=== PATIENT | male | born 1965 | race Caucasian/White ===

== ENCOUNTER 2023-03-29 19:11 | Inpatient (IN) | payer BC, SELFPAY ==
[2023-03-29] VITALS (13 sets, daily range): BP systolic 121–149; BP diastolic 50–85; PULSE 97–113; RESP 20–34; TEMP 36.7–37.9; O2SAT 83–96; BMI 37.0
--- NOTE | ~2023-03-29 | XR_ITS ---
EXAMINATION: XR chest 2V DATE: 03/29/2023 19:54 INDICATION: Shortness of breath TECHNIQUE: Frontal and lateral views of the chest are obtained COMPARISON: None available FINDINGS: There are patchy airspace opacities throughout the right lung and in the left lung base. No pleural effusion or pneumothorax. The cardiomediastinal silhouette is normal. There is moderate thor acic spondylosis. IMPRESSION: 1. Multifocal airspace opacities of the lungs, right greater than left, likely multifocal pneumonia. Reviewed, dictated and finalized at location F.
--- NOTE | 2023-03-29 19:27 | ECG_ITS ---
Measurements Intervals [place] Rate: 102 P: 44 ME: 190 QRS: 88 QRSD: 96 T: -16 QT: 333 QTc: 434 Interpretive Statements SINUS TACHYCARDIA INFERIOR MYOCARDIAL INFARCTION , OF INDETERMINATE AGE WITH POSTERIOR EXTENSION ABNORMAL ECG NO PREVIOUS ECG AVAILABLE FOR COMPARISON Electronically Signed On 03-30-2023 6:36:24 CDT by Dani Mayer D.O.
[2023-03-29 19:41] LABS: Basophils Percent Auto 0.5 % (0.2-1.2); Eosinophils Percent Auto 0.5 % (0-4.4); Hematocrit 44.2 % (42.0-52.0); Hemoglobin 14.9 g/dL (14.0-18.0); Immature Granulocyte Absolute 0.03 K/mm3 (0.00-0.031); Immature Granulocyte Percent A 0.4 % (0-0.5); Lymphocytes Absolute Auto 1.09 K/mm3 (0.9-3.2); Lymphocytes Percent Auto 12.8 % (18.3-44.2); Mean Corpuscular HGB Conc 33.7 g/dl (32-36); Mean Corpuscular Hemoglobin 29.9 pg (26-34); Mean Corpuscular Volume 88.8 fl (80-100); Mean Platelet Volume 10.9 fl (7.4-10.4); Monocytes Absolute Auto 0.7 K/mm3 (0.1-0.6); Neutrophils Absolute Auto 6.6 K/mm3 (1.3-6.7); Neutrophils Percent Auto 77.8 % (45.5-73.1); Platelet Count Result 176 k/mm3 (150-375); Red Blood Count 4.98 M/mm3 (4.6-6.20); Red Cell Distribution Width 13.1 % (11.5-14.5); White Blood Count 8.5 K/mm3 (4.5-10.0)
[2023-03-29 19:51] LABS: Alanine Aminotransferase 32 U/L (6-50); Albumin Level 3.8 g/dL (3.5-5.1); Alkaline Phosphatase 52 U/L (38-126); Anion Gap 6 mmol/L (8-16); Aspartate Amino Transferase 30 U/L (17-59); Bilirubin,Total 0.9 mg/dL (0.2-1.3); Blood Urea Nitrogen 24 mg/dL (9-20); Calcium 8.5 mg/dL (8.4-10.2); Carbon Dioxide 29 mmol/L (22-30); Chloride 103 mmol/L (98-107); Estimated Glomerular Filt Rate 45; Glucose 148 mg/dL (65-110); Lactic Acid Reflex 0.7 mmol/L (0.7-2.0); Potassium 3.7 mmol/L (3.4-5.0); Sodium 138 mmol/L (137-145)
--- NOTE | 2023-03-29 20:13 | ED.SOB ---
HPI - SOB/Dyspnea General Chief Complaint: Shortness of Breath/Dyspnea Stated Complaint: sob Time Seen by Provider: 03/29/23 19:30 History of Present Illness HPI Narrative: Patient is a 57-year-old male with a history of hypertension, diabetes presenting with shortness of breath. Patient states that he has had URI symptoms for the last week. States that he has tested himself twice for COVID and both of been negative. States that he has been having intermittent fevers and today he has been coughing a lot. He called his PCP today who ordered a Z-Ashvin. States that he took the first dose earlier this afternoon. States that he checked his pulse ox at home and it was reading 79-85 so he came in for evaluation. Patient was placed on nasal cannula due to hypoxia and he states that he does feel improved with the oxygen on. He denies headache, numbness or weakness, chest pain, abdominal pain, nausea or vomiting, diarrhea, dysuria, leg swelling, rashes. Related Data Home Medications Medication Instructions Recorded Confirmed indomethacin 50 mg capsule 50 mg PO BID PRN Gout 02/07/22 03/30/23 lisinopril 10 mg tablet 10 mg PO QHS 03/29/23 03/29/23 Allergies Allergy/AdvReac Type Severity Reaction Status Date / Time No Known Allergies Allergy Verified 03/29/23 22:57 Review of Systems Review of Systems: All systems reviewed & are unremarkable except as noted in HPI and below PMFSH Past Medical History Medical History (Updated 03/30/23 @ 00:48 by Eunice Quinn MD) Chronic kidney disease, stage 3a Essential (primary) hypertension Gastro-esophageal reflux disease without esophagitis Gout History of diverticulosis Insomnia, unspecified Male erectile dysfunction, unspecified Obstructive sleep apnea on CPAP (~2014) Perirectal abscess Testicular hypofunction Type 2 diabetes mellitus without complications Umbilical hernia without obstruction or gangrene Surgical History Surgical History Hx of repair of rotator cuff Family History Family History Mother Breast cancer Esophageal cancer Cerebrovascular accident Diabetes mellitus Heart disease Father Depression Diabetes mellitus Sibling Diabetes mellitus Other Colon polyp Hypertension Social History Social History Smoking status: Never smoker Second hand tobacco smoke exposure: No Alcohol intake: never Substance use: never Substance use type: does not use Lack of Transportation: No Lack of Food: Never True Current Housing: I Have Housing Concerned About Future Housing: No Difficulty Paying Gas/Electric Bills: No Difficulty Paying for Meds: No Currently Unemployed: No Education: Decline to Answer Difficulty w/ Childcare or Family Care: No Living arrangements: with family Occupation/Education: occupation Gender identity (if verbalized by the patient): Male Sexual Orientation (if Verbalized by the Patient): Straight or Heterosexual Spiritual care concerns: No Agree to blood products: Yes Exam Narrative: GENERAL: In no acute distress, pleasant and cooperative HEAD: Normocephalic, atraumatic. EYES: PERRLA and EOMI. ENT: Nares clear, no rhinorrhea or epistaxis. Mucous membranes moist. NECK: Supple. CHEST: Coarse breath sounds especially in the HEART: Tachycardic, regular rhythm, no murmur heard ABDOMEN: Soft, nontender, nondistended EXTREMITIES: Normal range of motion. No edema. SKIN: Warm, dry, no rash. NEURO: No focal deficits. Alert and oriented x3. PSYCH: Normal mood and affect. Course Vital Signs Vital signs: Vital Signs Temperature 100.2 F H 03/29/23 19:21 Pulse Rate 113 H 03/29/23 19:21 Respiratory Rate 20 03/29/23 19:21 Blood Pressure 149/85 H 03/29/23 19:21 Pulse Oximetry 83 L 03/29/23 19:21 Oxygen Delivery R
[2023-03-29] MEDS: SODIUM CHLORIDE 0.9% IV 1,000 ML 999 ML IV CONT ×2 (20:21)
[2023-03-29 20:33] LABS: NT Pro B Type Natriuretic Pept 2960 pg/mL (19.9-100)
[2023-03-29 21:13] LABS: Influenza A QL RT-PCR Negative (Negative); Influenza B QL RT-PCR Negative (Negative); RSV RNA, RT-PCR Negative (Negative); SARS-CoV-2 RNA PCR Negative (Negative)
--- NOTE | 2023-03-29 21:32 | PM.IMHP ---
H&P: HPI History of Present Illness Date/Time: 03/29/23 21:32 Chief Complaint: Shortness of breath, low oxygen saturations Narrative: 57-year-old male with past medical history of obesity, type 2 diabetes mellitus, obstructive sleep apnea, chronic kidney disease stage III and essential hypertension who presented to the ER with 1 week of URI symptoms associated with shortness of breath and intermittent fever. The patient checked 2 home a COVID test that were negative. His symptoms started initially with headache in intermittent fever up to 101?. He felt generally fatigued. He was having as sensation of globus. He continued to get progressively more fatigued. In a couple of days ago he began having some chest tightness with breathing. He noticed some shortness of breath. Then today he developed cough. He called his primary care physician today who called in a prescription for azithromycin. He took 1st dose this afternoon. However after he took the medications he developed increasing shortness of breath. He checked his pulse oximeter at home and found his oxygen saturations to be ranging between 79 and 85 say decided come to the ER for evaluation. On arrival to the ER patient was satting 83% on room air. He was placed on 4 L nasal cannula with improvement in oxygen saturation to 93%. He reported that this afternoon he began having symptoms of some mild nausea. Otherwise he had been having some decent appetite. He reports a burning sensation her discomfort across his lower abdomen. He denies any dysuria or changes in urinary frequency. He reports that he has noticed some blurred vision recently but has not had his diabetic eye exam in about 2 years. He rarely checks his blood sugars. He reports that his last hemoglobin A1c was 6.2. He became concerned with some of his symptoms a day or so ago and so he checked his glucose at that time and they were elevated to 140 fasting. He has continued to take his home medications despite not feeling well. He denies any changes in the bowel habits. He denies any orthopnea but at the time of my evaluation the patient seemed very uncomfortable with even sitting up back in the bed and requested to sit at the edge of the bed. The patient's oxygen requirement increased while he was in the ER from 4 L nasal cannula to 6 L nasal cannula. He denies any recent travel or any recent ill contacts. He had a chest x-ray performed in the ER which confirmed multifocal pneumonia. He was started on empiric antibiotic therapy with Rocephin and azithromycin. Review of Systems Review of Systems: 12 systems were reviewed with pertinent positives and negatives per HPI. Except as documented in the HPI, all other systems were reviewed and are negative. [facility] Past Medical History Medical History (Updated 03/30/23 @ 00:48 by Eunice Quinn MD) Chronic kidney disease, stage 3a Essential (primary) hypertension Gastro-esophageal reflux disease without esophagitis Gout History of diverticulosis Insomnia, unspecified Male erectile dysfunction, unspecified Obstructive sleep apnea on CPAP (~2014) Perirectal abscess Testicular hypofunction Type 2 diabetes mellitus without complications Umbilical hernia without obstruction or gangrene Surgical History Surgical History (Updated 03/30/23 @ 08:53 by Iveth Reyes DO) History of repair of left rotator cuff History of repair of right rotator cuff Family History Family History Mother Breast cancer Esophageal cancer Cerebrovascular accident Diabetes mellitus Heart disease Father Depression Diabetes mellitus Sibling Diabetes mellitus Other Colon polyp Hypertension Social History Social History (Updated 03/30/23 @ 08:54 by Iveth Reyes DO) Smoking status: Never smoker Second hand tobacco smoke exposure: No Alcohol intake: current Alcohol use details: Extremely rare alcohol u
[2023-03-29] MEDS: LEVALBUTEROL NEB 1.25 MG/3 ML INHALATION (21:51)
[2023-03-30] VITALS (13 sets, daily range): BP systolic 133–138; BP diastolic 76–84; PULSE 91–103; RESP 18–24; TEMP 36.6–36.9; O2SAT 92–98
[2023-03-30] MEDS: LACTATED RINGERS 1,000 ML 125 ML IV CONT ×2 (00:15→08:20)
[2023-03-30] MEDS: lisinopriL 10 MG TABLET PO ×2 (00:19→20:22)
[2023-03-30] MEDS: WATER FOR IRRIGATION, STERILE 1,000 ML BOTTLE 1000 ML (00:20)
[2023-03-30] MEDS: LORazepam (*CRX) 1 MG TABLET PO ×2 (02:26→20:22)
[2023-03-30 05:45] LABS: Basophils Percent Auto 0.3 % (0.2-1.2); Eosinophils Percent Auto 0.1 % (0-4.4); Hematocrit 42.3 % (42.0-52.0); Hemoglobin 14.4 g/dL (14.0-18.0); Immature Granulocyte Absolute 0.04 K/mm3 (0.00-0.031); Immature Granulocyte Percent A 0.5 % (0-0.5); Lymphocytes Absolute Auto 0.87 K/mm3 (0.9-3.2); Lymphocytes Percent Auto 9.8 % (18.3-44.2); Mean Corpuscular Hemoglobin 30.2 pg (26-34); Mean Corpuscular Volume 88.7 fl (80-100); Mean Platelet Volume 10.8 fl (7.4-10.4); Monocytes Absolute Auto 0.7 K/mm3 (0.1-0.6); Monocytes Percent Auto 7.9 % (2.6-8.5); Neutrophils Absolute Auto 7.2 K/mm3 (1.3-6.7); Neutrophils Percent Auto 81.4 % (45.5-73.1); Platelet Count Result 167 k/mm3 (150-375); Red Blood Count 4.77 M/mm3 (4.6-6.20); Red Cell Distribution Width 13.2 % (11.5-14.5); White Blood Count 8.9 K/mm3 (4.5-10.0)
[2023-03-30 05:58] LABS: Anion Gap 10 mmol/L (8-16); Blood Urea Nitrogen 19 mg/dL (9-20); Calcium 7.8 mg/dL (8.4-10.2); Carbon Dioxide 20 mmol/L (22-30); Chloride 106 mmol/L (98-107); Estimated CRCL calculation 75 ml/min; Estimated Glomerular Filt Rate > 60; Glucose 153 mg/dL (65-110); Potassium 4.2 mmol/L (3.4-5.0); Sodium 136 mmol/L (137-145)
[2023-03-30 08:18] LABS: Glucose Point of Care 142 mg/dl (65-105)
[2023-03-30] MEDS: metFORMIN HCL XR 500 MG TAB.SR.24H 1000 MG PO (08:20)
[2023-03-30] MEDS: ENOXAPARIN 40 MG/0.4 ML SYRINGE SUB-Q (08:21)
--- NOTE | 2023-03-30 09:26 | PC.NURSE ---
Pt wanting to ambulate to restroom. Patient is on 6L HF at 92% currently I spoke with Eliana in resp and she stated it is ok for patient to use nasal cannula with extension tubing at 6L to that duration.
[2023-03-30] MEDS: LEVALBUTEROL NEB 1.25 MG/3 ML 0.63 MG INHALATION (11:07)
[2023-03-30] MEDS: IPRATROPIUM BR 0.02% INH SOLN 0.5 MG/2.5 ML VIAL INHALATION (11:07)
--- NOTE | 2023-03-30 11:37 | PM.IMPN ---
Progress Note: A&P Assessment and Plan (1) Sepsis with acute hypoxic respiratory failure: Qualifiers: Sepsis type: sepsis due to unspecified organism Severe sepsis shock status: without septic shock Qualified Code(s): A41.9 - Sepsis, unspecified organism; R65.20 - Severe sepsis without septic shock; J96.01 - Acute respiratory failure with hypoxia Code(s): A41.9 - Sepsis, unspecified organism; R65.20 - Severe sepsis without septic shock; J96.01 - Acute respiratory failure with hypoxia Status: Acute Assessment and Plan: empiric antibiotic therapy with Rocephin and azithromycin. Blood cultures are pending. Will check urine Legionella and pneumococcal antigen. Will check mycoplasma PCR sputum if the patient is able to produce a sputum specimen. (2) Multifocal pneumonia: Code(s): J18.9 - Pneumonia, unspecified organism Status: Acute Assessment and Plan: empiric antibiotic therapy with Rocephin and azithromycin. Blood cultures are pending. Will check urine Legionella and pneumococcal antigen. Will check mycoplasma PCR sputum if the patient is able to produce a sputum specimen. COVID negative (3) Obstructive sleep apnea on CPAP: Onset Date: ~2014 Code(s): G47.33 - Obstructive sleep apnea (adult) (pediatric); Z99.89 - Dependence on other enabling machines and devices Status: Acute Assessment and Plan: On CPAP (4) Chronic kidney disease, stage 3a: Code(s): N18.31 - Chronic kidney disease, stage 3a Status: Acute Assessment and Plan: The patient does have chronic kidney disease stage 3 but creatinine stable. Will avoid nephrotoxic medications when possible. (5) Type 2 diabetes mellitus: Qualifiers: Diabetes mellitus long term care pharmacist insulin use: without penitentiary use Diabetes mellitus complication status: without complication Qualified Code(s): E11.9 - Type 2 diabetes mellitus without complications Code(s): E11.9 - Type 2 diabetes mellitus without complications Status: Acute Assessment and Plan: Will add low-dose sliding scale insulin with Accu-Cheks a.c. HS and continue home metformin. Will change diet to consistent carbohydrate. Subjective Date/time seen: 03/30/23 11:37 Interval history: Patient still on oxygen. Appears a little anxious Review of Systems Review of Systems: 12 systems were reviewed with pertinent positives and negatives per HPI. Except as documented in the HPI, all other systems were reviewed and are negative. Exam Narrative: Weight 113.7 kg BMI 37 Const: Other: Acutely ill-appearing, obese, bdxf-po-deplylcv distress HENMT: Other: Mucous membranes are moist, no oral pharyngeal erythema, good dentition, crowded posterior oropharynx Eyes: Other: No scleral icterus, no conjunctival pallor, extraocular movements intact, pupils equal Neck: Other: No significant lymphadenopathy, large neck circumference Resp: Other: Coarse crackles anterior and posterior lung jade, mild tachypnea, mildly labored respiration Cardio: Other: Sinus tachycardia, 2+ bilateral radial pedal pulses, no JVD GI: Other: Soft reducible umbilical hernia, normoactive bowel sounds, distended, nontender Back/Spine/Pelvis: Other: Normal spinal alignment, mild thoracic kyphosis Skin: Other: Hot to touch, non jaundice, mild pallor, 2-3 second cap refill Neuro: Other: Alert oriented, speech is clear, no facial asymmetry, no localizing neurologic deficits noted during the course of conversation Extrem: Other: No clubbing, cyanosis or edema, no foot wounds Psych: Other: Appropriate mood and affect if somewhat anxious given his current acute illness, judgment and insight intact, cooperative Objective Data Vital Signs Vital Signs: Vital Signs - 24 hr 03/29/23 19:21 03/29/23 19:31 03/29/23 19:25 Temperature 100.2 F H
[2023-03-30 12:21] LABS: Glucose Point of Care 138 mg/dl (65-105)
[2023-03-30 17:17] LABS: Glucose Point of Care 140 mg/dl (65-105)
[2023-03-31] VITALS (15 sets, daily range): BP systolic 133–156; BP diastolic 77–87; PULSE 84–936; RESP 20; TEMP 36.1–36.9; O2SAT 95–99
[2023-03-31] MEDS: ENOXAPARIN 40 MG/0.4 ML SYRINGE SUB-Q (08:15)
[2023-03-31] MEDS: metFORMIN HCL XR 500 MG TAB.SR.24H 1000 MG PO (08:15)
[2023-03-31 08:29] LABS: Glucose Point of Care 156 mg/dl (65-105)
--- NOTE | 2023-03-31 10:59 | PM.IMPN ---
Progress Note: A&P Assessment and Plan (1) Sepsis with acute hypoxic respiratory failure: Qualifiers: Sepsis type: sepsis due to unspecified organism Severe sepsis shock status: without septic shock Qualified Code(s): A41.9 - Sepsis, unspecified organism; R65.20 - Severe sepsis without septic shock; J96.01 - Acute respiratory failure with hypoxia Code(s): A41.9 - Sepsis, unspecified organism; R65.20 - Severe sepsis without septic shock; J96.01 - Acute respiratory failure with hypoxia Status: Acute Assessment and Plan: Improving. Continue empiric antibiotic therapy with Rocephin and azithromycin. Blood cultures are pending. Will check urine Legionella and pneumococcal antigen. Will check mycoplasma PCR sputum if the patient is able to produce a sputum specimen. (2) Multifocal pneumonia: Code(s): J18.9 - Pneumonia, unspecified organism Status: Acute Assessment and Plan: empiric antibiotic therapy with Rocephin and azithromycin. Blood cultures are pending. Will check urine Legionella and pneumococcal antigen. Will check mycoplasma PCR sputum if the patient is able to produce a sputum specimen. COVID negative (3) Obstructive sleep apnea on CPAP: Onset Date: ~2014 Code(s): G47.33 - Obstructive sleep apnea (adult) (pediatric); Z99.89 - Dependence on other enabling machines and devices Status: Acute Assessment and Plan: On CPAP (4) Chronic kidney disease, stage 3a: Code(s): N18.31 - Chronic kidney disease, stage 3a Status: Acute Assessment and Plan: The patient does have chronic kidney disease stage 3 but creatinine stable. Will avoid nephrotoxic medications when possible. (5) Type 2 diabetes mellitus: Qualifiers: Diabetes mellitus group home insulin use: without group home use Diabetes mellitus complication status: without complication Qualified Code(s): E11.9 - Type 2 diabetes mellitus without complications Code(s): E11.9 - Type 2 diabetes mellitus without complications Status: Acute Assessment and Plan: low-dose sliding scale insulin with Accu-Cheks a.c. HS and continue home metformin. Subjective Date/time seen: 03/31/23 10:59 Interval history: Patient states his breathing is better. He is ambulating in the room Review of Systems Review of Systems: 12 systems were reviewed with pertinent positives and negatives per HPI. Except as documented in the HPI, all other systems were reviewed and are negative. Exam Narrative: Weight 113.7 kg BMI 37 Const: Other: Acutely ill-appearing, obese, efqs-eg-hnbtlfrr distress HENMT: Other: Mucous membranes are moist, no oral pharyngeal erythema, good dentition, crowded posterior oropharynx Eyes: Other: No scleral icterus, no conjunctival pallor, extraocular movements intact, pupils equal Neck: Other: No significant lymphadenopathy, large neck circumference Resp: Other: Coarse crackles anterior and posterior lung jade, mild tachypnea, mildly labored respiration Cardio: Other: Sinus tachycardia, 2+ bilateral radial pedal pulses, no JVD GI: Other: Soft reducible umbilical hernia, normoactive bowel sounds, distended, nontender Back/Spine/Pelvis: Other: Normal spinal alignment, mild thoracic kyphosis Skin: Other: Hot to touch, non jaundice, mild pallor, 2-3 second cap refill Neuro: Other: Alert oriented, speech is clear, no facial asymmetry, no localizing neurologic deficits noted during the course of conversation Extrem: Other: No clubbing, cyanosis or edema, no foot wounds Psych: Other: Appropriate mood and affect if somewhat anxious given his current acute illness, judgment and insight intact, cooperative Objective Data Vital Signs Vital Signs: Vital Signs - 24 hr 03/30/23 11:00 03/30/23 12:37 03/30/23 14:37 Temperature Pulse Rate 95 Resp
[2023-03-31 12:21] LABS: Glucose Point of Care 107 mg/dl (65-105)
[2023-03-31 17:12] LABS: Glucose Point of Care 109 mg/dl (65-105)
[2023-03-31] MEDS: lisinopriL 10 MG TABLET PO (20:19)
[2023-03-31] MEDS: LORazepam (*CRX) 1 MG TABLET PO (20:19)
[2023-03-31 21:50] LABS: Glucose Point of Care 118 mg/dl (65-105)
[2023-04-01] VITALS: PULSE 83
[2023-04-01 03:16] VITALS: PULSE 82; RESP 17; O2SAT 97
[2023-04-01 04:00] VITALS: PULSE 82
[2023-04-01 04:07] VITALS: BP 136/77; PULSE 83; RESP 18; TEMP 36.6; O2SAT 96
[2023-04-01 08:23] LABS: Glucose Point of Care 101 mg/dl (65-105)
[2023-04-01] MEDS: metFORMIN HCL XR 500 MG TAB.SR.24H 1000 MG PO (08:34)
[2023-04-01] MEDS: ENOXAPARIN 40 MG/0.4 ML SYRINGE SUB-Q (08:36)
[2023-04-01 09:57] VITALS: O2SAT 98
--- NOTE | 2023-04-01 11:13 | PM.DS ---
DS: Admitting Diagnosis Discharge Date 04/01/2023 Admitting Diagnosis Shortness of breath, low oxygen saturations DS: Discharge Diagnosis Discharge Diagnosis (1) Sepsis with acute hypoxic respiratory failure: Qualifiers: Sepsis type: sepsis due to unspecified organism Severe sepsis shock status: without septic shock Qualified Code(s): A41.9 - Sepsis, unspecified organism; R65.20 - Severe sepsis without septic shock; J96.01 - Acute respiratory failure with hypoxia Code(s): A41.9 - Sepsis, unspecified organism; R65.20 - Severe sepsis without septic shock; J96.01 - Acute respiratory failure with hypoxia Status: Acute Assessment and Plan: Much improved with IV antibiotic therapy with Rocephin and azithromycin. Blood cultures prelim are negative. Pt feels better wants to go home. (2) Multifocal pneumonia: Code(s): J18.9 - Pneumonia, unspecified organism Status: Acute Assessment and Plan: empiric antibiotic therapy with Rocephin and azithromycin. BC prelim is negative. COVID negative (3) Obstructive sleep apnea on CPAP: Onset Date: ~2014 Code(s): G47.33 - Obstructive sleep apnea (adult) (pediatric); Z99.89 - Dependence on other enabling machines and devices Status: Acute Assessment and Plan: On CPAP (4) Chronic kidney disease, stage 3a: Code(s): N18.31 - Chronic kidney disease, stage 3a Status: Acute Assessment and Plan: The patient does have chronic kidney disease stage 3 but creatinine stable. (5) Type 2 diabetes mellitus: Qualifiers: Diabetes mellitus complication status: without complication Diabetes mellitus mcc insulin use: without local intermodal truck driver use Qualified Code(s): E11.9 - Type 2 diabetes mellitus without complications Code(s): E11.9 - Type 2 diabetes mellitus without complications Status: Acute Assessment and Plan: low-dose sliding scale insulin with Accu-Cheks a.c. HS and continue home metformin. DS: Summary Hospital Course Hospital Course: 57-year-old male with past medical history of obesity, type 2 diabetes mellitus, obstructive sleep apnea, chronic kidney disease stage III and essential hypertension who presented to the ER with 1 week of URI symptoms associated with shortness of breath and intermittent fever.? The patient checked 2 home a COVID test that were negative.? His symptoms started initially with headache in intermittent fever up to 101?.? He felt generally fatigued.? He was having as sensation of globus.? He continued to get progressively more fatigued.? In a couple of days ago he began having some chest tightness with breathing.? He noticed some shortness of breath.? Then today he developed cough.? He called his primary care physician today who called in a prescription for azithromycin.? He took 1st dose this afternoon.? However after he took the medications he developed increasing shortness of breath.? He checked his pulse oximeter at home and found his oxygen saturations to be ranging between 79 and 85 say decided come to the ER for evaluation.? On arrival to the ER patient was satting 83% on room air.? He was placed on 4 L nasal cannula with improvement in oxygen saturation to 93%.? He reported that this afternoon he began having symptoms of some mild nausea.? Otherwise he had been having some decent appetite.? He reports a burning sensation her discomfort across his lower abdomen.? He denies any dysuria or changes in urinary frequency.? He reports that he has noticed some blurred vision recently but has not had his diabetic eye exam in about 2 years.? He rarely checks his blood sugars.? He reports that his last hemoglobin A1c was 6.2 Time Spent with Patient Time attestation: Total time spent providing and/or coordinating discharge services:40 minutes on day of dc Exam Const: Other: Acutely ill-appearing, obese, coyn-bf-dgisggke distress HENMT: Other: Mucous membranes
[2023-04-01 11:45] LABS: Glucose Point of Care 121 mg/dl (65-105)
[2023-04-02 06:05] LABS: Legionella pneumophila Ag Ur Not Detected (Not Detected)
[2023-04-03 04:12] LABS: Pneumococcal Antigen Urine Not Detected (Not Detected)
== END 2023-04-01 14:11 | disposition home or self-care (01) | DRG 871 ==
LOC: ANHED 20:00 → ANH3MED 21:32
PROVIDERS: Hospitalist; Admitting Provider Internal Medicine; Emergency Provider Emergency Medicine; PCP Family Medicine Adolescent Medicine; Visit Provider Family Medicine
DX: A41.9 Sepsis, unspecified organism (principal); J18.8 Other pneumonia, unspecified organism; J96.01 Acute respiratory failure with hypoxia; R65.20 Severe sepsis without septic shock; I12.9 Hypertensive chronic kidney disease with stage 1 through stage 4 chronic kidney disease, or unspecified chronic kidney disease; N18.31 Chronic kidney disease, stage 3a; E11.22 Type 2 diabetes mellitus with diabetic chronic kidney disease; K21.9 Gastro-esophageal reflux disease without esophagitis; K57.30 Diverticulosis of large intestine without perforation or abscess without bleeding; K42.9 Umbilical hernia without obstruction or gangrene; M10.9 Gout, unspecified; G47.33 Obstructive sleep apnea (adult) (pediatric); Z20.822 Contact with and (suspected) exposure to COVID-19
CPT/HCPCS: 36415; 71046; 80048; 80053; 82948; 83605; 83880; 85025; 87040; 87449; 87637; 87899; 93005; 94002; 94640; 96361; 96365; 96372; 99285; A9270; G0378; J0456; J0696; J1650; J7030; J7060; J7120

== ENCOUNTER 2023-08-13 07:17 | Outpatient (CLI) | payer BC, SELFPAY ==
--- NOTE | 2023-08-13 07:45 | ECHO_ITS ---
Patient Info Name: George Barriga Age: 57 years : 1965 Gender: Male Ht: 70 in Wt: 240 lbs BSA: 2.36 m2 HR: 69 bpm BP: 123 / 82 mmHg Technical Quality: Good Exam Date: 08/13/2023 7:49 AM Exam Location: [facility] Patient Status: Outpatient Admit Date: 08/13/2023 Staff Ordering Physician: Siddharth Corona MD Assembler Bicycle: Chelsey Beauchamp RDCS Attending Provider: Siddharth Corona MD Referring Physician: Cj CORONA; Exam Type: CA echo dop color flow w con Study Info Indications R01.1 - Cardiac murmur, unspecified Complete two-dimensional, color flow and Doppler transthoracic echocardiogram is performed with contrast to opacify the left ventricle and to improve the deliniation of the left ventricle endocardial borders. Contrast/Agitated Saline Contrast/Ag. Saline: Definity Amount: 3.00 ml Administered By: Chelsey Beauchamp RDCS New IV Access: Antecubital Space and Left Site Condition: IV removed, Site dressing applied and No extravasation Summary 1. Left ventricular chamber dimension is mildly enlarged. 2. Definity contrast administered improved wall motion interpretation. 3. Left ventricular systolic function is preserved, estimated at 50-55%. 4. There is moderately increased left ventricular wall thickness. 5. The left ventricular diastolic function is abnormal. 6. E/e' 11 is mildly elevated. 7. Left atrial chamber dimension is mildly enlarged. 8. Right atrial chamber dimension is mildly enlarged. 9. The aortic valve is bicuspid. 10. There is moderate aortic valve sclerosis. 11. There is severe aortic valve stenosis with a peak velocity of 316.79 cm/s, mean gradient of 28 mmHg, and aortic valve area of 0.76 cm2. 12. No pulmonary hypertension, estimated pulmonary arterial systolic pressure is 21 mmHg. Left Ventricle E/e' 11 is mildly elevated. Definity contrast administered improved wall motion interpretation. Left ventricular chamber dimension is mildly enlarged. Left ventricular systolic function is preserved, estimated at 50-55%. There is moderately increased left ventricular wall thickness. The left ventricular diastolic function is abnormal. Right Ventricle Right ventricular systolic function is normal and with normal TAPSE 2.4 cm. Right ventricular chamber dimension is normal. Left Atria Left atrial chamber dimension is mildly enlarged. Right Atria Right atrial chamber dimension is mildly enlarged. Aortic Valve The aortic valve is bicuspid. There is moderate aortic valve sclerosis. There is severe aortic valve stenosis with a peak velocity of 316.79 cm/s, mean gradient of 28 mmHg, and aortic valve area of 0.76 cm2. There is no aortic valve regurgitation. Pulmonic Valve There is no pulmonic regurgitation. Mitral Valve There is no mitral valve stenosis. There is no mitral valve regurgitation. Tricuspid Valve There is no tricuspid valve regurgitation. No pulmonary hypertension, estimated pulmonary arterial systolic pressure is 21 mmHg. Pericardium/Pleural There is no pericardial effusion. Inferior Vena Cava Normal inferior vena cava with >50% collapse upon inspiration consistent with normal right atrial pressure, 5 mmHg. Aorta The aortic root size at the sinus of Valsalva is normal. Left Ventricular Outflow Tract Name Value Normal LVOT 2D
[2023-08-13] MEDS: PERFLUTREN LIPID MICROSPHERES 1.5 ML VIAL DILUTED TO 10 ML TOTAL VOLUME IV PUSH (09:08)
--- NOTE | 2023-08-13 09:58 | IVDEFINITY ---
Prior to administration of IV Definity the patient was educated on the risks and benefits of the imaging enhancing agent including potential adverse side effects. The patient verbalized understanding. Allergies were verified. No exclusion criteria were identified and at least one of the following inclusion criteria were met: 1) physician request, 2) patient technically difficult to image (per the [place] [employer] guidelines of two or more segments not discernable within the apical view), or 3) questionable left ventricular function. ?
== END 2023-08-13 07:18 | disposition home or self-care (01) ==
LOC: ANHCARD 07:19
PROVIDERS: PCP Family Medicine Adolescent Medicine; Visit Provider Family Medicine Adolescent Medicine
DX: R01.1 Cardiac murmur, unspecified (principal); Q23.1 Congenital insufficiency of aortic valve
CPT/HCPCS: C8929; Q9957

== ENCOUNTER 2024-01-19 08:19 | Outpatient (CLI) | payer BC, SELFPAY ==
--- NOTE | 2024-01-19 08:53 | ECHO_ITS ---
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 Summary 1. Complete two-dimensional, color flow and Doppler transthoracic echocardiogram is performed. 2. Left ventricular chamber dimension is normal. 3. Left ventricular systolic function is normal, estimated at 60-65%. 4. There is mild concentric increased left ventricular wall thickness. 5. The left ventricular diastolic function is normal. 6. E/e' 9 is minimally elevated. 7. Left atrial chamber dimension is mildly enlarged. 8. The aortic valve is probably bicuspid. 9. There is moderate aortic valve sclerosis. 10. There is moderate aortic valve stenosis with a peak velocity of 327 cm/s, mean gradient of 25 mmHg, and aortic valve area of 1.0 cm2. 11. There is mild aortic valve regurgitation. 12. The mitral valve has mildly calcified annulus. 13. There is mild mitral valve regurgitation. 14. There is trace tricuspid valve regurgitation. 15. RVSP is not calculated due to an inadequate TR jet. 16. The prox ascending aorta size is mildly dilated at 4.3 cm. Left Ventricle E/e' 9 is minimally elevated. Left ventricular chamber dimension is normal. Left ventricular systolic function is normal, estimated at 60-65%. There is mild concentric increased left ventricular wall thickness. The left ventricular diastolic function is normal. Right Ventricle Right ventricular systolic function is normal and with normal TAPSE 2.5 cm. Right ventricular chamber dimension is normal. Left Atria Left atrial chamber dimension is mildly enlarged. Right Atria Right atrial chamber dimension is normal. Aortic Valve The aortic valve is probably bicuspid. There is moderate aortic valve sclerosis. There is moderate aortic valve stenosis with a peak velocity of 327 cm/s, mean gradient of 25 mmHg, and aortic valve area of 1.0 cm2. There is mild aortic valve regurgitation. Pulmonic Valve There is no pulmonic regurgitation. Mitral Valve The mitral valve has mildly calcified annulus. There is no mitral valve stenosis. There is mild mitral valve regurgitation. Tricuspid Valve There is trace tricuspid valve regurgitation. RVSP is not calculated due to an inadequate TR jet. Pericardium/Pleural There is no pericardial effusion. Inferior Vena Cava Normal inferior vena cava with >50% collapse upon inspiration consistent with normal right atrial pressure, 5 mmHg. Aorta The prox ascending aorta size is mildly dilated at 4.3 cm. The aortic root size at the sinus of Valsalva is normal. Left Ventricular Outflow Tract Name Value Normal LVOT 2D LVOT Diameter 2.2 cm LVOT Doppler LVOT Peak Gradient 4 mmHg
== END 2024-01-19 08:20 | disposition home or self-care (01) ==
LOC: ANHCARD 08:20
PROVIDERS: PCP Family Medicine Adolescent Medicine; Visit Provider Internal Medicine Cardiovascular Disease
DX: R93.1 Abnormal findings on diagnostic imaging of heart and coronary circulation (principal); I35.8 Other nonrheumatic aortic valve disorders; I35.0 Nonrheumatic aortic (valve) stenosis; I35.1 Nonrheumatic aortic (valve) insufficiency; I34.81 Nonrheumatic mitral (valve) annulus calcification; I07.1 Rheumatic tricuspid insufficiency
CPT/HCPCS: 93306

== ENCOUNTER 2024-02-11 07:58 | Outpatient (CLI) | payer BC, SELFPAY ==
--- NOTE | ~2024-02-11 | CT_ITS ---
EXAMINATION: CTA chest DATE: 02/11/2024 08:38 INDICATION: Abdominal aortic aneurysm TECHNIQUE: Computed tomographic angiography (CTA) of the chest was performed without and with 100 mL Omnipaque-350 intravenous contrast. Volume-rendered 3D-reconstructions of the aorta and large arterie s were constructed by the technologist on a separate workstation. Automated exposure control and iter ative reconstruction technique were employed. The dose-length product was 669.19 mGy-cm. COMPARISON: None. FINDINGS: Lungs are clear with no pneumonia, pulmonary edema or other pulmonary infiltrates. No pleural effusio n. Heart size is normal. No pericardial effusion. Fusiform ascending thoracic aortic aneurysm measuri ng up to 4.4 cm which tapers to normal caliber of 2.5 cm immediately after the takeoff of the left johnson bclavian artery. Descending thoracic aorta remains normal in caliber. No dissection. No pathologicall y enlarged thoracic lymphadenopathy. A small regions of cortical scarring at the visualized portions of both the left and right kidneys. A few small calcified gallstones at the dependent aspect of the n ormal-appearing gallbladder. There are bridging osteophytes at multiple levels consistent with diffus e idiopathic skeletal hyperostosis (DISH). IMPRESSION: 1. Fusiform 4.4 cm ascending thoracic aortic aneurysm. 2. Cholelithiasis. Reviewed, dictated and finalized at location L.
[2024-02-11 08:33] LABS: Estimated Glomerular Filt Rate 42
== END 2024-02-11 07:59 | disposition home or self-care (01) ==
PROVIDERS: PCP Family Medicine Adolescent Medicine; Visit Provider Internal Medicine Cardiovascular Disease
DX: I71.21 Aneurysm of the ascending aorta, without rupture (principal); K80.20 Calculus of gallbladder without cholecystitis without obstruction
CPT/HCPCS: 36415; 71275; Q9967

== ENCOUNTER 2025-01-27 10:47 | Observation (INO) | payer BC, SELFPAY ==
[2025-01-27] VITALS (15 sets, daily range): BP systolic 112–152; BP diastolic 65–90; PULSE 40–81; RESP 13–18; TEMP 36.4–36.7; O2SAT 95–99
--- NOTE | ~2025-01-27 | MR_ITS ---
EXAMINATION: MR brain/brain stem wo/w con DATE: 01/28/2025 11:19 INDICATION: Right-sided numbness. TECHNIQUE: Magnetic resonance imaging (MRI) of the brain and brainstem was performed without and with 15 mL Multihance intravenous contrast. Sequences included sagittal and axial T1-weighted SE, axial d iffusion-weighted FS SE, axial 3D SWAN, axial T2-weighted FLAIR, and axial T2-weighted FSE. Postcontr ast axial and coronal T1-weighted SE was obtained. Apparent diffusion coefficient (ADC) maps were cre ated. COMPARISON: 01/27/2025 FINDINGS: Restricted diffusion to suggest at the left thalamus consistent with acute infarct. No intracranial hemorrhage or abnormal intracranial mass lesion. There are scattered areas of nonspecific increased T 2-weighted signal intensity in the cerebral white matter, predominantly involving the deep and perive ntricular white matter. Additional region of increased T2 signal at the left middle cerebellar pedunc le. There are no intraparenchymal signal abnormalities seen on the other pulse sequences. The ventric les are symmetric and normal in size. There are no abnormal extra-axial fluid collections. Flow voids are seen in the cerebral arteries on the T2-weighted sequences consistent with their expected patenc y. Visualized orbits and soft tissues are unremarkable. Mild mucosal thickening at the bilateral ethm oid sinuses. There are no areas of abnormal enhancement on the post contrast images. IMPRESSION: 1. Acute left thalamic infarct. Reviewed, dictated and finalized at location A. DISPENSER
--- NOTE | ~2025-01-27 | CT_ITS ---
EXAMINATION: CTA BRAIN/CAROTID DATE: 01/27/2025 13:14 INDICATION: Headache. Right-sided numbness. TECHNIQUE: Computed tomographic angiography (CTA) of the head and neck was performed with 100 mL Omni paque-350 intravenous contrast. Multiplanar reconstructions and maximum intensity projection 3D-recon structions of the carotid arteries and of the intracranial arteries were created by the technologist on a separate workstation. Precontrast CT of the head was also obtained. Automated exposure control and iterative reconstruction technique were employed.The dose-length product was 1640.57 mGy-cm. COMPARISON: None. FINDINGS: Carotid arteries: The proximal most portion of the visualized ascending thoracic aorta measures up to 4.0 cm in maximal diameter. The nonvisualized more proximal portion of the ascending thoracic aorta is noted up to 4.4 cm on prior chest CT dated 02/11/2024. Minimal atherosclerotic plaque without stenosis and with no di ssection along the more distal aortic arch. The great vessels arising from the arch are also normal i n caliber with no evident atherosclerotic plaque. There is minimal atherosclerotic plaque with <10% s tenosis of the right carotid bulb relative to normal distal artery lumen diameter (NASCET criteria). There is minimal atherosclerotic plaque with 0% stenosis of the left carotid bulb relative to normal distal artery lumen diameter. Left vertebral artery is dominant. No evident atherosclerotic plaque al singh the bilateral vertebral arteries. Visualized portion of the superior mediastinum and upper lungs are unremarkable. Mild cervical and upper thoracic spondylosis. Head: No acute intracranial hemorrhage, acute infarction or abnormal extra axial fluid collection. Old lacu ludmila infarct at the left thalamus. Ventricles are normal and symmetric. No mass/mass effect. No abnorm ally enhancing brain lesions on the postcontrast imaging. The orbits, paranasal sinuses and mastoid a ir cells are normal. Intracranial arteries Left vertebral artery is dominant. There is no hemodynamically significant stenosis in the vertebral, basilar and internal carotid arteries. Vertebral arteries are codominant. There are no aneurysms majo ntified. Both A1 and P1 segments are patent. Cerebral arterial arborization appears symmetric. IMPRESSION: 1. <10% stenosis of the right carotid bulb relative to normal distal artery lumen diameter (NASCET cr iteria). 2. 0% stenosis of the left carotid bulb relative to normal distal artery lumen diameter. 3. 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 No acute intracranial process. 4. Unremarkable cerebral CT angiogram with no hemodynamically significant stenosis, aneurysm or throm bosis. 5. Partially visualized ascending thoracic aortic aneurysm. Reviewed, dictated and finalized at location B. STANT WAREHOUSE MANAGER IMPRESSION: 1. <10% stenosis of the right carotid bulb relative to normal distal artery lum en diameter (NASCET criteria). 2. 0% stenosis of the left carotid bulb relative to normal distal artery lumen diameter. 3. 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 No acute intracranial process. 4. Unremarkable cerebral CT angiogram with no hemodynamically significant steno sis, aneurysm or thrombosis. 5. Partially visualized ascending thoracic aortic aneurysm.
--- OUTSIDE RECORDS SUMMARY | 2025-01-27 11:42 | XMS_ITS | CONTINUITY OF CARE DOCUMENT ---
Author Name fiona jaimes Address Unknown Organization [facility] Address [address] [place] [address] Phone [phone] Care Team Providers Care Inspector Watch Parts Name Role Phone Dejon HOUSTON, Lori Unavailable GLENN HAMMONDS MD Unavailable [phone] INSURANCE PROVIDERS Payer name Policy type / Coverage type [place] red alliance party ID [facility] [id number] 1
--- NOTE | 2025-01-27 11:59 | ECG_ITS ---
Test Date: 2025-01-27 12:21:14 Measurements Intervals [place] Rate: 67 P: 26 WV: 247 QRS: 66 QRSD: 108 T: 150 QT: 377 QTc: 401 Interpretive Statements SINUS RHYTHM WITH FIRST DEGREE AV BLOCK BORDERLINE R WAVE PROGRESSION, ANTERIOR LEADS INFERIOR INFARCT, AGE INDETERMINATE MODERATE T-WAVE ABNORMALITY, CONSIDER HIGH LATERAL ISCHEMIA ABNORMAL ECG No previous ECG available for comparison Electronically Signed On 01-27-2025 12:42:35 SEARCH MANAGER by Dani Mayer D.O.
[2025-01-27 12:33] LABS: Glucose Point of Care 134 mg/dl (65-105)
--- NOTE | 2025-01-27 12:37 | ED.GENADULT ---
HPI - General Adult General Chief complaint: Headache Stated complaint: migraine Time Seen by Provider: 01/27/25 11:50 History of Present Illness HPI narrative: This is a 59-year-old male with history of ocular migraines presenting for right arm numbness. At 8:30 p.m. last night patient had his typical migraine. It was associated with numbness in his right arm and his right leg. This morning he went to his primary care office and they directed him to come to the emergency department. The symptoms have improved he now only has some numbness in his right arm. Patient's migraine has resolved. No visual changes, slurred speech difficulty swallowing or loss of coordination. No history of CVA. No trauma or fevers. Related Data Allergies Allergy/AdvReac Type Severity Reaction Status Date / Time No Known Allergies Allergy Verified 01/27/25 10:48 [facility] Past Medical History Medical History Multifocal pneumonia Sepsis with acute hypoxic respiratory failure Gout Obstructive sleep apnea on CPAP (~2014) Perirectal abscess History of diverticulosis Male erectile dysfunction, unspecified Umbilical hernia without obstruction or gangrene Testicular hypofunction Essential (primary) hypertension Type 2 diabetes mellitus without complications Gastro-esophageal reflux disease without esophagitis Insomnia, unspecified Surgical History Surgical History History of repair of left rotator cuff (~2014) History of repair of right rotator cuff (~2012) Family History Family History Mother Breast cancer Esophageal cancer Cerebrovascular accident Diabetes mellitus Heart disease Age older than 80 years Father , Age 75 Depression Diabetes mellitus Sibling Cerebrovascular accident 1 sister Diabetes mellitus Multiple siblings Other Colon polyp Hypertension Social History Social History Smoking status: Never smoker Second hand tobacco smoke exposure: No Alcohol intake: current Alcohol use details: Extremely rare alcohol use Substance use: never Substance use type: does not use Lack of Transportation: No Lack of Food: Never True Current Housing: I Have Housing Concerned About Future Housing: No Difficulty Paying Gas/Electric Bills: No Difficulty Paying for Meds: No Currently Unemployed: No Education: Decline to Answer Difficulty w/ Childcare or Family Care: No Living arrangements: with family Additional living arrangements comments: He lives with his of 25 years. He has 3 step children and no biologic children. 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 Gender identity (if verbalized by the patient): Male Sexual Orientation (if Verbalized by the Patient): Straight or Heterosexual Spiritual care concerns: No Agree to blood products: Yes Exam Narrative: APPEARANCE: No apparent distress. Head: atraumatic. EYES: EOMI, NOSE: Atraumatic NECK: Trachea midline RESPIRATORY: No increased rate of breathing CARDIOVASCULAR: RRR, ABDOMINAL: Non-distended MUSCULOSKELETAl: No obvious deformities NEURO: Alert. Cranial nerves 2-12 grossly intact. Right arm drift, decreased sensation in the right arm. Motor function, sensory function is cerebellar function otherwise intact. SKIN:: Warm, dry. Normal color PSYCHIATRIC: Normal affect NIH Stroke Scale/Score (NIHSS) from [email or web address] on 01/27/2025 All calculations should be rechecked by clinician prior to use RESULT SUMMARY: 2 points NIH Stroke Scale INPUTS: 1A: Level of consciousness ?> 0 = Alert; keenly responsive 1B: Ask month and age ?> 0 = Both questions right 1C: 'Blink eyes' & 'squeeze hands' ?> 0 = Performs both tasks 2: Horizontal extraocular movements ?> 0 = Normal 3: Visual jade ?> 0 = No visual loss 4: Facial palsy ?> 0 = Normal symmetry 5A: Left arm motor drift ?> 0 = No drift for 10 seconds 5B: Right arm motor drift ?> 1 = Drift, but doesn't hit bed 6A: Left leg motor drift ?> 0 = No drift for 5 seconds 6B: Right leg motor drift ?> 0 = No drift for 5 seconds 7: Limb Ataxia ?> 0 = No ataxia 8: Sensation ?> 1 = Mild-moderate loss: less sharp/more dull 9: Language/aphasia ?> 0 = Normal; no aphasia 10: Dysarthria ?> 0 = Normal 11: Extinction/inattention ?> 0 = No abnormality Course Vital Signs Vital signs: Vital Signs Temperature 97.6 F 01/27/25 11:01 Pulse Rate 71 01/27/25 11:01 Respiratory Rate 16 01/27/25 11:01 Blood Pressure 131/86 01/27/25 11:01 Pulse Oximetry 99 01/27/25 11:01 Oxygen Delivery Room Air 01/27/25 11:01 Temperature 97.6 F 01/27/25 11:01 Pulse Rate 72 01/27/25 13:30 Respiratory Rate 15 01/27/25 13:30 Blood Pressure 131/90 01/27/25 13:30 Pulse Oximetry 98 01/27/25 13:30 Oxygen Delivery Room Air 01/27/25 11:01 Medical Decision Making [facility] Narrative Medical decision making narrative: -Course: This is a 59 year male presenting headache and right arm weakness/numbness. Last known normal is 8:30 p.m. last night. NIH of 2 (R pronator drift, R decreased sensation. CT brain and CTA unremarkable. Patient is not a tPA candidate due to timing and low NIH score pain. Patient will be admitted the hospital for further CVA workup. Consult to Neurology placed in EMR. -DDX includes but is not limited to: CVA, complex migraine complex seizure Independent EKG interpretation: Rhythm [sinus], Rate [67], [place] -[normal], MN -[normal], QRS [narrow], QTC [normal], T waves -[negative for concerning inversions], ST Segments - [Negative for concerning elevations] Final interpretations: [Normal Sinus Rhythm] Vital Signs Vital Signs: Vital Signs Temperature 97.6 F 01/27/25 11:01 Pulse Rate 71 01/27/25 11:01 Respiratory Rate 16 01/27/25 11:01 Blood Pressure 131/86 01/27/25 11:01 Pulse Oximetry 99 01/27/25 11:01 Oxygen Delivery Room Air 01/27/25 11:01 Temperature 97.6 F 01/27/25 11:01 Pulse Rate 72 01/27/25 13:30 Respiratory Rate 15 01/27/25 13:30 Blood Pressure 131/90 01/27/25 13:30 Pulse Oximetry 98 01/27/25 13:30 Oxygen Delivery Room Air 01/27/25 11:01 Lab Data 01/27/25 12:24 01/27/25 12:24 Labs: Lab Results 01/27/25 01/27/25 01/27/25 Range/Units 12:24 12:24 12:30 WBC 7.7 (4.5-10.0) K/mm3 RBC 5.42 (4.6-6.20) M/mm3 Hgb 16.4 (14.0-18.0) g/dL Hct 48.6 (42.0-52.0) % MCV 89.7 (80-100) fl MCH 30.3 (26-34) pg MCHC 33.7 (32-36) g/dl RDW 14.1 (11.5-14.5) % Plt Count 146 L (150-375) k/mm3 MPV 10.8 H (7.4-10.4) fl Immature Gran % (Auto) 0.4 (0-0.5) % Neut % (Auto) 77.0 H (45.5-73.1) % Lymph % (Auto) 15.0 L (18.3-44.2) % [place] % (Auto) 6.1 (2.6-8.5) % Eos % (Auto) 0.8 (0-4.4) % Baso % (Auto) 0.7 (0.2-1.2) % Lymph # (Auto) 1.15 (0.9-3.2) K/mm3 [place] # (Auto) 0.5 (0.1-0.6) K/mm3 Eos # (Auto) 0.1 (0-0.3) K/mm3 Baso # (Auto) 0.1 (0.0-0.1) K/mm3 Abs Immat Gran (auto) 0.03 (0.00-0.031) K/mm3 Absolute Neuts (auto) 5.9 (1.3-6.7) K/mm3 Absolute Nucleated RBC 0.000 (0.0-0.012) K/mm3 Nucleated RBC % 0.0 (0.0-0.2) % PT 13.8 (11.1-14.7) Seconds INR 1.0 APTT 22.7 (22.3-36.8) Seconds Sodium 138 (137-145) mmol/L Potassium 4.6 (3.4-5.0) mmol/L Chloride 106 (98-107) mmol/L Carbon Dioxide 19 L (22-30) mmol/L Anion Gap 13 H (4-12) mmol/L BUN 25 H (9-20) mg/dL Creatinine 1.32 H (0.7-1.3) mg/dL Estim Creat Clear Calc Not Reportable Estimated GFR 56 L (59 - ) Glucose 135 H (65-110) mg/dL POC Capillary Glucose 134 H (65-105) mg/dl Calcium 9.3 (8.4-10.2) mg/dL Phosphorus 3.4 (2.5-4.5) mg/dL Magnesium 1.9 (1.6-2.3) mg/dL Total Bilirubin 2.0 H (0.2-1.3) mg/dL AST 26 (17-59) U/L ALT 27 (6-50) U/L Alkaline Phosphatase 56 (38-126) U/L Troponin I 0.019 0.018 (0.000-0.034) ng/mL NT-Pro-B Natriuret Pep 425 H (19.9-100) pg/mL Total Protein 8.0 (6.3-8.2) g/dL Albumin 4.4 (3.5-5.1) g/dL Lipase 280 (23-300) U/L Urine Color (Yellow) Urine Appearance (Clear) Urine pH (5.0-9.0) Ur Specific [place] (1.001-1.035) Urine Protein (Negative) mg/dL Urine Glucose (UA) (Negative) mg/dL Urine Ketones (Negative) mg/dL Ur Blood (Man) (Negative) Urine Nitrate (Negative) Urine Bilirubin (Negative) Urine Urobilinogen (<2.0) mg/dL Leukocyte Esterase Rfl (Negative) CONNOR/UL Urine RBC (0-2) /hpf Urine WBC (0-3) /hpf Ur Squamous Epith Cells (Few) /hpf Urine Bacteria /hpf Urine Casts 01/27/25 Range/Units 13:31 WBC (4.5-10.0) K/mm3 RBC (4.6-6.20) M/mm3 Hgb (14.0-18.0) g/dL Hct (42.0-52.0) % MCV (80-100) fl MCH (26-34) pg MCHC (32-36) g/dl RDW (11.5-14.5) % Plt Count (150-375) k/mm3 MPV (7.4-10.4) fl Immature Gran % (Auto) (0-0.5) % Neut % (Auto) (45.5-73.1) % Lymph % (Auto) (18.3-44.2) % [place] % (Auto) (2.6-8.5) % Eos % (Auto) (0-4.4) % Baso % (Auto) (0.2-1.2) % Lymph # (Auto) (0.9-3.2) K/mm3 [place] # (Auto) (0.1-0.6) K/mm3 Eos # (Auto) (0-0.3) K/mm3 Baso # (Auto) (0.0-0.1) K/mm3 Abs Immat Gran (auto) (0.00-0.031) K/mm3 Absolute Neuts (auto) (1.3-6.7) K/mm3 Absolute Nucleated RBC (0.0-0.012) K/mm3 Nucleated RBC % (0.0-0.2) % PT (11.1-14.7) Seconds INR APTT (22.3-36.8) Seconds Sodium (137-145) mmol/L Potassium (3.4-5.0) mmol/L Chloride (98-107) mmol/L Carbon Dioxide (22-30) mmol/L Anion Gap (4-12) mmol/L BUN (9-20) mg/dL Creatinine (0.7-1.3) mg/dL Estim Creat Clear Calc Estimated GFR (59 - ) Glucose (65-110) mg/dL POC Capillary Glucose (65-105) mg/dl Calcium (8.4-10.2) mg/dL Phosphorus (2.5-4.5) mg/dL Magnesium (1.6-2.3) mg/dL Total Bilirubin (0.2-1.3) mg/dL AST (17-59) U/L ALT (6-50) U/L Alkaline Phosphatase (38-126) U/L Troponin I (0.000-0.034) ng/mL NT-Pro-B Natriuret Pep (19.9-100) pg/mL Total Protein (6.3-8.2) g/dL Albumin (3.5-5.1) g/dL Lipase (23-300) U/L Urine Color Yellow (Yellow) Urine Appearance Clear (Clear) Urine pH 5.0 (5.0-9.0) Ur Specific [place] 1.023 (1.001-1.035) Urine Protein Trace (Negative) mg/dL Urine Glucose (UA) Negative (Negative) mg/dL Urine Ketones Negative (Negative) mg/dL Ur Blood (Man) Negative (Negative) Urine Nitrate Negative (Negative) Urine Bilirubin Negative (Negative) Urine Urobilinogen 0.2 (<2.0) mg/dL Leukocyte Esterase Rfl Negative (Negative) CONNOR/UL Urine RBC 0-2 (0-2) /hpf Urine WBC 0-5 (0-3) /hpf Ur Squamous Epith Cells None seen (Few) /hpf Urine Bacteria None seen /hpf Urine Casts 0-2 Discharge Plan Discharge Clinical Impression: Acute CVA (cerebrovascular accident) Patient Disposition: Still a Patient Condition: Stable Patient Language: Georgian Prescriptions: No Action indomethacin 50 mg capsule 50 mg PO BID PRN (Reason: Gout) Qty: 180 1RF Rx Instructions: administer with food or milk metformin 500 mg tablet extended release 24 hr 1,000 mg PO DAILY Qty: 180 3RF lisinopril 10 mg tablet 10 mg PO QHS Qty: 90 3RF sildenafil 100 mg tablet 100 mg PO DAILY PRN (Reason: sexual activity) Qty: 30 5RF Patient Comments: Sometimes takes partial doses Rx Instructions: administer 30 minutes to 4 hours before activity testosterone cypionate [Depo-Testosterone] 200 mg/mL oil 300 mg IM .every 2 weeks Qty: 12 1RF lorazepam 1 mg tablet 1 mg PO QHS PRN (Reason: sleep) Qty: 30 4RF Patient Comments: Sometimes cuts dose in half (DME) syringe with needle 3 mL 22 gauge x 1 syringe See Rx Instructions .ROUTE .COMPLEX Qty: 10 5RF Dose Instruction: USE 1 EVERY 2 WEEKS Rx Instructions: USE 1 EVERY 2 WEEKS metoprolol succinate 25 mg tablet extended release 24 hr See Rx Instructions .ROUTE .COMPLEX Qty: 45 2RF Dose Instruction: TAKE HALF A TAB BY MOUTH DAILY Rx Instructions: TAKE HALF A TAB BY MOUTH DAILY Follow-up/Referrals: Siddharth Corona MD [Primary Care Provider] -
[2025-01-27 12:39] LABS: Basophils Absolute Auto 0.1 K/mm3 (0.0-0.1); Basophils Percent Auto 0.7 % (0.2-1.2); Eosinophils Absolute Auto 0.1 K/mm3 (0-0.3); Eosinophils Percent Auto 0.8 % (0-4.4); Hematocrit 48.6 % (42.0-52.0); Hemoglobin 16.4 g/dL (14.0-18.0); Immature Granulocyte Absolute 0.03 K/mm3 (0.00-0.031); Immature Granulocyte Percent A 0.4 % (0-0.5); Lymphocytes Absolute Auto 1.15 K/mm3 (0.9-3.2); Mean Corpuscular HGB Conc 33.7 g/dl (32-36); Mean Corpuscular Hemoglobin 30.3 pg (26-34); Mean Corpuscular Volume 89.7 fl (80-100); Mean Platelet Volume 10.8 fl (7.4-10.4); Monocytes Absolute Auto 0.5 K/mm3 (0.1-0.6); Monocytes Percent Auto 6.1 % (2.6-8.5); Neutrophils Absolute Auto 5.9 K/mm3 (1.3-6.7); Platelet Count Result 146 k/mm3 (150-375); Red Blood Count 5.42 M/mm3 (4.6-6.20); Red Cell Distribution Width 14.1 % (11.5-14.5); White Blood Count 7.7 K/mm3 (4.5-10.0)
[2025-01-27 12:49] LABS: Alanine Aminotransferase 27 U/L (6-50); Albumin Level 4.4 g/dL (3.5-5.1); Alkaline Phosphatase 56 U/L (38-126); Anion Gap 13 mmol/L (4-12); Aspartate Amino Transferase 26 U/L (17-59); Blood Urea Nitrogen 25 mg/dL (9-20); Calcium 9.3 mg/dL (8.4-10.2); Carbon Dioxide 19 mmol/L (22-30); Chloride 106 mmol/L (98-107); Estimated Glomerular Filt Rate 56; Glucose 135 mg/dL (65-110); Lipase 280 U/L (23-300); Magnesium 1.9 mg/dL (1.6-2.3); Phosphorus 3.4 mg/dL (2.5-4.5); Potassium 4.6 mmol/L (3.4-5.0); Prothrombin Time 13.8 Seconds (11.1-14.7); Sodium 138 mmol/L (137-145)
[2025-01-27 12:50] LABS: Partial Thromboplastin Time 22.7 Seconds (22.3-36.8)
--- OUTSIDE RECORDS SUMMARY | 2025-01-27 12:55 | XMS_ITS | CONTINUITY OF CARE DOCUMENT ---
Author Name fiona jaimes Address Unknown Organization [facility] Address [address] [place] [address] Phone [phone] Care Team Providers Care Patient Financial Coordinator Name Role Phone Dejon HOUSTON, Lori Unavailable GLENN HAMMONDS MD Unavailable [phone] INSURANCE PROVIDERS Payer name Policy type / Coverage type [place] red democrat ID [facility] [id number] 1
[2025-01-27 12:59] LABS: NT Pro B Type Natriuretic Pept 425 pg/mL (19.9-100); Troponin I 0.019 ng/mL (0.000-0.034)
[2025-01-27 13:00] LABS: Troponin I 0.018 ng/mL (0.000-0.034)
[2025-01-27 13:41] LABS: Add Urine Microscopic? YES; Appearance Urine Clear (Clear); Bacteria Urine None Seen /hpf; Bilirubin Urine Negative (Negative); Blood Urine Negative (Negative); Color Urine Yellow (Yellow); Glucose Urine UA Negative (Negative); Ketones Urine Negative (Negative); Leukocyte Esterase Ur Negative LEU/UL (Negative); Nitrate Urine Negative (Negative); Non Pathogenic Casts 0-2; Protein Urine Trace mg/dL (Negative); RBC Urine 0-2 /hpf (0-2); Specific Grav Ur 1.023 (1.001-1.035); Squamous Epithelial Cell Urine None Seen /hpf (Few); Urobilinogen Urine 0.2 mg/dL (<2.0); WBC Urine 0-5 /hpf (0-3)
[2025-01-27 16:20] LABS: Glucose Point of Care 130 mg/dl (65-105)
[2025-01-27 16:53] LABS: Glucose Point of Care 131 mg/dl (65-105)
--- NOTE | 2025-01-27 18:13 | ADMGEN ---
This patient, George Barriga, was admitted to Medical Room 340-01. Patient/family oriented to hospital policies and general routines including ID bracelet, bed and alarms, visiting hours, pain management, procedures, bathroom and other care routines, personal items, smoking policy, room service/diet, and visiting hours. Information on how to activate the Rapid Response Team has been discussed. Patient/Family are encouraged to report perceived risks to care and to ask questions if they do not understand what they are told or what they should do.
--- OUTSIDE RECORDS SUMMARY | 2025-01-27 18:29 | XMS_ITS | CONTINUITY OF CARE DOCUMENT ---
Author Name fiona jaimes Address Unknown Organization [facility] Address [address] [place] [address] Phone [phone] Care Team Providers Care Car Park Attendant Name Role Phone Dejon HOUSTON, Lori Unavailable [phone] GLENN HAMMONDS MD Unavailable [phone] INSURANCE PROVIDERS Payer name Policy type / Coverage type [place] red republican ID [facility] [id number] 1
--- NOTE | 2025-01-27 19:13 | P.HP_ITS ---
H&P: HPI History of Present Illness Date/Time: 01/27/25 19:13 Chief Complaint: Headache, Focal Numbness Narrative: 59 y/o M presents here with headache and focal numbness with PMH of ocular migraines, gout, LON, hypertension, diabetes, GERD, insomnia, and testicular hypofunction. The patient presents here from home for further evaluation of headache and right-sided numbness. He reports last known well at 3 p.m. yesterday (01/26) when he got off work. Patient developed an ocular migraine at around 4-5 p.m. He initially experienced symptoms consistent with his typical migraines. However, he developed right sided numbness around 8:30 p.m. stating that he felt off and he had right arm numbness. Then developed right leg and right facial numbness late last night. Patient woke this morning and symptoms had not resolved. He initially sought care at his PCP, but was directed to the ER for evaluation. Focal numbness currently effecting the right side of his face, right upper extremity, and right lower extremity. Headache has since resolved. Numbness has partially resolved. He denies accompanying focal weakness, dysarthria, vision changes (not consistent with his ocular disturbances with migraines), dizziness, or gait disturbance. He denies known history of stroke. Of note, the patient had a syncopal episode last week. He was sitting at his desk near a heater when he stood up and walked to the kitchen. He passed out after about 10- 20 feet. LOC for 10-15 secs. No injuries post-fall. Initial VS at presentation: 97.6? F, HR 71, RR 16, 131/86, and 99% on RA. ED workup showed: No leukocytosis, no anemia, normal coags, creatinine 1.32 and GFR 56 (previously 1.7 and GFR 49 on 08/13/2024), BNP 425 (WNL for age), troponin 0.018, and UA unremarkable. 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 Initial EKG showed sinus rhythm with first-degree AV block. Review of Systems Review of Systems: All systems reviewed & are unremarkable except as noted in HPI and below [facility] Past Medical History Medical History (Updated 01/27/25 @ 21:11 by Loraine Galloway APRN) Gout Obstructive sleep apnea on CPAP (~2014) Perirectal abscess History of diverticulosis Male erectile dysfunction, unspecified Umbilical hernia without obstruction or gangrene Testicular hypofunction Essential (primary) hypertension Type 2 diabetes mellitus without complications Gastro-esophageal reflux disease without esophagitis Insomnia, unspecified Surgical History Surgical History History of repair of left rotator cuff (~2014) History of repair of right rotator cuff (~2012) Family History Family History Mother Breast cancer Esophageal cancer Cerebrovascular accident Diabetes mellitus Heart disease Age older than 80 years Father , Age 75 Depression Diabetes mellitus Sibling Cerebrovascular accident 1 sister Diabetes mellitus Multiple siblings Other Colon polyp Hypertension Social History Social History Smoking status: Never smoker Second hand tobacco smoke exposure: No Alcohol intake: former Alcohol use details: Extremely rare alcohol use Substance use: never Substance use type: does not use Do You Feel Safe in your Home?: Yes Lack of Transportation: No Lack of Food: Never True Current Housing: I Have Housing Concerned About Future Housing: No Difficulty Paying Gas/Electric Bills: No Difficulty Paying for Meds: No Currently Unemployed: No Education: Decline to Answer Difficulty w/ Childcare or Family Care: No Living arrangements: with family Additional living arrangements comments: He lives with his of 25 years. He has 3 step children and no biologic children. 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 Gender identity (if verbalized by the patient): Male Sexual Orientation (if Verbalized by the Patient): Straight or Heterosexual Spiritual care concerns: No Agree to blood products: Yes Meds Home Medications and Allergies Home Medications ?Medication ?Instructions ?Recorded ?Confirmed ?Type indomethacin 50 mg capsule 50 mg PO BID PRN Gout #180 caps 04/18/24 01/27/25 Rx metformin 500 mg tablet,extended 1,000 mg (2 x 500 mg) PO DAILY 04/20/24 01/27/25 Rx release 24 hr #180 tabs lisinopril 10 mg tablet 10 mg PO QHS #90 tabs 04/25/24 01/27/25 Rx sildenafil 100 mg tablet 100 mg PO DAILY PRN sexual 05/31/24 01/27/25 Rx activity #30 tabs testosterone cypionate 200 mg/mL 300 mg (1.5 mL) IM .every 2 weeks 10/17/24 01/27/25 Rx intramuscular oil #12 mL (Depo-Testosterone) lorazepam 1 mg tablet 1 mg PO QHS PRN sleep #30 tabs 11/01/24 01/27/25 Rx syringe with needle 3 mL 22 gauge #10 ea 11/17/24 01/27/25 Rx x 1 metoprolol succinate 25 mg See Rx Instructions .Route 12/07/24 01/27/25 Rx tablet,extended release 24 hr .COMPLEX #45 tabs Allergies Allergy/AdvReac Type Severity Reaction Status Date / Time No Known Allergies Allergy Verified 01/27/25 18:11 Vital Signs Vital Signs - 24 hr 01/27/25 11:01 01/27/25 11:31 01/27/25 12:00 Temperature 97.6 F Pulse Rate 71 70 70 Respiratory Rate 16 16 14 Blood Pressure 131/86 124/78 127/88 Pulse Oximetry 99 98 97 Oxygen Delivery Room Air 01/27/25 12:30 01/27/25 13:30 01/27/25 13:30 Temperature Pulse Rate 69 72 77 Respiratory Rate 14 15 18 Blood Pressure 127/88 131/90 131/90 Pulse Oximetry 97 98 97 Oxygen Delivery 01/27/25 14:00 01/27/25 16:15 01/27/25 16:30 Temperature Pulse Rate 74 76 77 Respiratory Rate 14 15 14 Blood Pressure 112/84 152/89 H 133/80 Pulse Oximetry 98 98 97 Oxygen Delivery 01/27/25 17:00 01/27/25 17:30 01/27/25 17:40 Temperature 97.7 F Pulse Rate 74 77 Respiratory Rate 13 18 Blood Pressure 126/85 136/88 Pulse Oximetry 97 97 Oxygen Delivery 01/27/25 18:53 Temperature Pulse Rate Respiratory Rate Blood Pressure Pulse Oximetry Oxygen Delivery Room Air H&P: Results Labs Labs: Short CBC 01/27/25 Range/Units 12:24 WBC 7.7 (4.5-10.0) K/mm3 Hgb 16.4 (14.0-18.0) g/dL Hct 48.6 (42.0-52.0) % Plt Count 146 L (150-375) k/mm3 BMP 01/27/25 12:24 Sodium 138 Potassium 4.6 Chloride 106 Carbon Dioxide 19 L BUN 25 H Creatinine 1.32 H Glucose 135 H Calcium 9.3 Cardiac Enzymes 01/27/25 01/27/25 Range/Units 12:24 12:24 Troponin I 0.019 0.018 (0.000-0.034) ng/mL Liver Function 01/27/25 Range/Units 12:24 Total Bilirubin 2.0 H (0.2-1.3) mg/dL AST 26 (17-59) U/L ALT 27 (6-50) U/L Alkaline Phosphatase 56 (38-126) U/L Albumin 4.4 (3.5-5.1) g/dL Urine 01/27/25 Range/Units 13:31 Urine Color Yellow (Yellow) Urine Appearance Clear (Clear) Urine pH 5.0 (5.0-9.0) Ur Specific [place] 1.023 (1.001-1.035) Urine Protein Trace (Negative) mg/dL Urine Glucose (UA) Negative (Negative) mg/dL Assessment and Plan Assessment and plan (1) Right sided numbness: Code(s): R20.0 - Anesthesia of skin Status: Acute Assessment and Plan: New deficits of right-sided numbness starting on 01/27 at 8:30 p.m. Last known well at 3:00 p.m. on 01/26. - admission for observation and telemetry - not candidate for thrombolytics due to timeframe - not candidate for thrombectomy, no LVO on CT - CTA head/neck 1. <10% stenosis of the right carotid bulb relative to normal distal artery lumen diameter (NASCET criteria). 2. 0% stenosis of the left carotid bulb relative to normal distal artery lumen diameter. 3. 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 No acute intracranial process. 4. Unremarkable cerebral CT angiogram with no hemodynamically significant st enosis, aneurysm or thrombosis. 5. Partially visualized ascending thoracic aortic aneurysm. - neurology consulted - brain MRI w/wo ordered - echo w/Bubble ordered - neuro checks Q4 - check lipid panel and A1C - start Atorvastatin 40 mg PO, Plavix 75 mg PO, ASA 81 mg - consider 30 day event monitoring at discharge (2) Second degree heart block: Code(s): I44.1 - Atrioventricular block, second degree Status: Acute Assessment and Plan: - new 2nd degree heart block seen on telemetry, will attempt to capture via EKG - cardiology consulted - hold home metoprolol - telemetry monitoring (3) Type 2 diabetes mellitus: Qualifiers: Diabetes mellitus complication status: without complication Diabetes mellitus custodial insulin use: 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 Qualified Code(s): E11.9 - Type 2 diabetes mellitus without complications Code(s): E11.9 - Type 2 diabetes mellitus without complications Status: Acute Assessment and Plan: - hypoglycemia protocol - POC blood glucose ACHS - home medication: Hold metformin - correct regimen ordered - low dose TIDWM, based off TDD - A1C 6.7% in 2022, update (4) Essential (primary) hypertension: Code(s): I10 - Essential (primary) hypertension Status: Acute Assessment and Plan: - chronic, currently 136/88 - continue home medications: Lisinopril 10 mg daily - monitor (5) Obstructive sleep apnea on CPAP: Onset Date: ~2014 Code(s): G47.33 - Obstructive sleep apnea (adult) (pediatric); Z99.89 - Dependence on other enabling machines and devices Status: Acute Assessment and Plan: - continue home CPAP Plan Diet: Diabetic GI Prophylaxis: Not currently indicated DVT Prophylaxis: SCDs Lines: Peripheral Code Status: Full code Quality VTE Prophylaxis VTE prophylaxis: mechanical ordered Hospitalist MIPS Advance Care Plan I have confirmed that the patient's Advanced Care Plan is present, code status is documented, or surrogate decision maker is listed in patient medical record.: Yes Medication Reconciliation I have utilized all available resources to obtain, update and review the patients current medications (includes all prescriptions, OTC, herbals, cannabis, and nutritional supplements).: Yes
--- NOTE | 2025-01-27 20:26 | ECG_ITS ---
Test Date: 2025-01-27 20:46:03 Measurements Intervals [place] Rate: 75 P: 35 HI: 236 QRS: 56 QRSD: 104 T: 165 QT: 370 QTc: 415 Interpretive Statements SINUS RHYTHM WITH FIRST DEGREE AV BLOCK DELAYED PRECORDIAL R/S TRANSITION INFERIOR INFARCT, AGE INDETERMINATE T WAVE ABNORMALITY IN HIGH LATERAL LEADS- CONSIDER ISCHEMIA ABNORMAL ECG Compared to ECG 01/27/2025 12:21:14 No significant changes Electronically Signed On 01-28-2025 06:54:21 JOB COMPOSITOR by Dani Mayer D.O.
[2025-01-27] MEDS: lisinopriL 10 MG TABLET PO (21:19)
[2025-01-27] MEDS: LORazepam (*CRX) 1 MG TABLET PO (21:20)
[2025-01-27] MEDS: WATER FOR IRRIGATION, STERILE 500 ML BOTTLE (21:20)
[2025-01-27 22:32] LABS: Glucose Point of Care 179 mg/dl (65-105)
[2025-01-28] VITALS (11 sets, daily range): BP systolic 111–137; BP diastolic 74–83; PULSE 67–82; RESP 16–20; TEMP 36.6–36.8; O2SAT 93–98
[2025-01-28 05:57] LABS: Basophils Percent Auto 0.5 % (0.2-1.2); Eosinophils Absolute Auto 0.1 K/mm3 (0-0.3); Eosinophils Percent Auto 0.6 % (0-4.4); Hematocrit 47.9 % (42.0-52.0); Hemoglobin 16.2 g/dL (14.0-18.0); Immature Granulocyte Absolute 0.03 K/mm3 (0.00-0.031); Immature Granulocyte Percent A 0.4 % (0-0.5); Lymphocytes Absolute Auto 1.47 K/mm3 (0.9-3.2); Lymphocytes Percent Auto 18.6 % (18.3-44.2); Mean Corpuscular HGB Conc 33.8 g/dl (32-36); Mean Corpuscular Hemoglobin 30.6 pg (26-34); Mean Corpuscular Volume 90.5 fl (80-100); Mean Platelet Volume 10.4 fl (7.4-10.4); Monocytes Absolute Auto 0.6 K/mm3 (0.1-0.6); Monocytes Percent Auto 8.1 % (2.6-8.5); Neutrophils Absolute Auto 5.7 K/mm3 (1.3-6.7); Neutrophils Percent Auto 71.8 % (45.5-73.1); Platelet Count Result 155 k/mm3 (150-375); Red Blood Count 5.29 M/mm3 (4.6-6.20); Red Cell Distribution Width 14.3 % (11.5-14.5); White Blood Count 7.9 K/mm3 (4.5-10.0)
[2025-01-28 06:07] LABS: Anion Gap 10 mmol/L (4-12); Blood Urea Nitrogen 23 mg/dL (9-20); Carbon Dioxide 25 mmol/L (22-30); Chloride 103 mmol/L (98-107); Cholesterol 145 mg/dL (0-200); Estimated CRCL calculation 57 ml/min; Estimated Glomerular Filt Rate 46; Glucose 129 mg/dL (65-110); HDL Direct 24 mg/dL; Potassium 4.4 mmol/L (3.4-5.0); Sodium 138 mmol/L (137-145); Triglycerides 118 mg/dL (<150)
[2025-01-28 06:18] LABS: LDL Cholesterol Direct 83 mg/dL
--- NOTE | 2025-01-28 07:30 | ECHO_ITS ---
Patient Info Name: George Barriga Age: 59 years : 1965 Gender: Male Ht: 70 in Wt: 240 lbs BSA: 2.36 m2 HR: 68 bpm BP: 111 / 75 mmHg Technical Quality: Excellent Exam Date: 01/28/2025 9:53 AM Exam Location: Echo Lab Exam Room: [facility] Patient Status: Inpatient Admit Date: 01/27/2025 Staff Ordering Physician: Loraine Galloway APRN [employer] Home Economist: Jo Prather RDCS Attending Provider: Arnel Morales MD Referring Physician: Laverne SANCHEZ; Exam Type: CA echo doppler color flow Study Info Indications - Poss stroke, rt side numbness Complete two-dimensional, color flow and Doppler transthoracic echocardiogram is performed. Summary 1. Complete two-dimensional, color flow and Doppler transthoracic echocardiogram is performed. 2. Left ventricular chamber dimension is mildly enlarged. 3. Left ventricular systolic function is normal, estimated at 55-60%. 4. There is moderate concentric increased left ventricular wall thickness. 5. The left ventricular diastolic function is abnormal. 6. E/e' 10 is mildly elevated. 7. Left atrial chamber dimension is moderately enlarged. 8. Right atrial chamber dimension is mildly enlarged. 9. The aortic valve is bicuspid. 10. There is severe aortic valve sclerosis. 11. There is severe aortic valve stenosis with a peak velocity of 456 cm/s, mean gradient of 49 mmHg, and aortic valve area of 0.8 cm2. 12. There is trace aortic valve regurgitation. 13. There is mild mitral valve regurgitation. 14. There is trace tricuspid valve regurgitation. 15. Mild pulmonary hypertension, estimated pulmonary arterial systolic pressure is 42 mmHg. 16. The aortic root size at the sinus of Valsalva is borderline dilated at 3.9 cm. 17. The prox ascending aorta size is mildly dilated at 4.4 cm. Left Ventricle E/e' 10 is mildly elevated. Left ventricular chamber dimension is mildly enlarged. Left ventricular systolic function is normal, estimated at 55-60%. There is moderate concentric increased left ventricular wall thickness. The left ventricular diastolic function is abnormal. Right Ventricle Right ventricular systolic function is normal and with normal TAPSE 2.0 cm. Right ventricular chamber dimension is normal. Left Atria Left atrial chamber dimension is moderately enlarged. Right Atria Right atrial chamber dimension is mildly enlarged. Aortic Valve The aortic valve is bicuspid. There is severe aortic valve sclerosis. There is severe aortic valve stenosis with a peak velocity of 456 cm/s, mean gradient of 49 mmHg, and aortic valve area of 0.8 cm2. There is trace aortic valve regurgitation. Pulmonic Valve There is no pulmonic regurgitation. Mitral Valve There is no mitral valve stenosis. There is mild mitral valve regurgitation. Tricuspid Valve There is trace tricuspid valve regurgitation. Mild pulmonary hypertension, estimated pulmonary arterial systolic pressure is 42 mmHg. Pericardium/Pleural There is no pericardial effusion. Inferior Vena Cava Normal inferior vena cava with >50% collapse upon inspiration consistent with normal right atrial pressure, 5 mmHg. Aorta The aortic root size at the sinus of Valsalva is borderline dilated at 3.9 cm. The prox ascending aorta size is mildly dilated at 4.4 cm. Left Ventricular Outflow Tract Name Value Normal LVOT 2D LVOT Diameter 2.3 cm LVOT Doppler LVOT Peak Gradient 3 mmHg LVOT Mean Gradient 2 mmHg LVOT VTI 18 cm LVOT VTI/AV VTI Ratio 0.2 LVOT Stroke Volume 79 ml LVOT CO 5.9 l/min LVOT CI 2.5 l/min/m2 Pulmonic Valve Name Value Normal PV Doppler PV Peak Gradient 10 mmHg Mitral Valve Name Value Normal MV Doppler MV Peak Gradient 3 mmHg MV Mean Gradient 1 mmHg MV Decel [place] 588 cm/s2 MV PHT 46 ms MV Area (PHT) 4.7 cm2 4.0-5.0 MV Area (Cont Eq VTI) 3.1 cm2 MV Regurgitation Doppler MR Peak Gradient 151 mmHg MV Diastolic Function MV E Peak Velocity 94 cm/s MV A Peak Velocity 84 cm/s MV E/A 1.1 MV Decel Time 160 ms MV Annular TDI MV E/e' (Septal) 17.0 <=8.0 MV E/e' (Lateral) 8.5 <=8.0 MV E/e' (Average) 12.7 Tricuspid Valve Name Value Normal TV Regurgitation Doppler TR Peak Velocity 306 cm/s TR Peak Gradient 37 mmHg Estimated PAP/RSVP RA Pressure 5 mmHg <=5 PA Systolic Pressure 42 mmHg <36 RV Systolic Pressure 42 mmHg <36 Aortic Valve Name Value Normal AV Doppler AV Peak Velocity 456 cm/s AV Peak Gradient 75 mmHg AV Mean Gradient 49 mmHg AV VTI 102 cm AV Area (Cont Eq VTI) 0.8 cm2 >=3.0 AV Area (Cont Eq [place]) 0.9 cm2 AV Regurgitation 2D LVOT Area 4.3 cm2 Ventricles Name Value Normal LV Dimensions 2D/MM IVS Diastolic Thickness (2D) 1.0 cm 0.6-1.0 IVS Diastole Thickness (MM) 1.1 cm 0.6-1.0 LVID Diastole (2D) 5.7 cm 4.2-5.8 LVID Diastole (MM) 6.0 cm 4.2-5.8 LVIW Diastolic Thickness (2D) 1.1 cm 0.6-1.0 LVIW Diastolic Thickness (MM) 1.0 cm 0.6-1.0 LVID Systole (2D) 4.6 cm 2.5-4.0 LVID Systole (MM) 4.7 cm 2.5-4.0 LVOT Diameter 2.3 cm LV Mass (2D Cubed) 250.85 g 88.00-224.00 LV Mass Index (2D Cubed) 106 g/m2 49-115 Relative Wall Thickness (2D) 0.39 LV Mass (MM Cubed) 261.45 g 88.00-224.00 LV Mass Index (MM Cubed) 111 g/m2 49-115 Relative Wall Thickness (MM) 0.33 LV Fractional Shortening/Ejection Fraction 2D/MM LV Fractional Shortening (2D) 19 % 25-43 LV Fractional Shortening (MM) 23 % 25-43 LV EF (MM Teicholz) 45 % 52-72 LV EF (2D Teicholz) 39 % 52-72 LV Diastolic Volume (4C MOD) 247 ml LV EF (4C MOD) 45 % LV Diastolic Volume (2C MOD) 186 ml LV EF (2C MOD) 56 % LV Diastolic Volume (BP MOD) 224 ml 62-150 LV Diastolic Volume Index (BP MOD) 95 ml/m2 34-74 LV Systolic Volume (BP MOD) 106 ml 21-61 LV Systolic Volume Index (BP MOD) 45 ml/m2 11-31 LV EF (BP MOD) 53 % 52-72 LV Diastolic Length (4C) 9.8 cm LV Systolic Length (4C) 8.6 cm LV Stroke Volume (4C MOD) 113 ml Atria Name Value Normal LA Dimensions LA Volume (4C A-L) 91 ml LA Volume (BP A-L) 93 ml RA Dimensions RA Area (4C) 23.8 cm2 <=18.0 Report Signatures
[2025-01-28 08:01] LABS: Hemoglobin A1C 6.4 % (<5.7)
--- NOTE | 2025-01-28 08:13 | PM.CNCAR ---
Assessment and Plan Assessment and plan (1) Acute CVA (cerebrovascular accident): Code(s): I63.9 - Cerebral infarction, unspecified Status: Acute Assessment and Plan: CTA neck/brain shows old left thalamus infarct. <10% right carotid bulb stenosis. Started on aspirin, plavix, lipitor. MRI brain and neurology consulted. (2) Second degree heart block: Code(s): I44.1 - Atrioventricular block, second degree Status: Acute Assessment and Plan: Probably contributed by Metoprolol which his last dose was 01/26/25 at 4:30 pm. Intermittent type II block on 01/27/25 around 6-8 pm. Monitor on telemetry. Stop Metoprolol. If resolves during hospitalization, will need event monitor upon discharge. (3) Bicuspid aortic valve: Code(s): Q23.1 - Congenital insufficiency of aortic valve Status: Acute (4) Aortic stenosis: Code(s): I35.0 - Nonrheumatic aortic (valve) stenosis Status: Acute Assessment and Plan: Obtain echo, he is about due for one. (5) Ascending aortic aneurysm: Onset Date: 12/2023 Code(s): I71.21 - Aneurysm of the ascending aorta, without rupture Status: Acute Assessment and Plan: Stable at 4.4 cm. Was on Metoprolol for this to decrease shear stress. (6) Essential (primary) hypertension: Code(s): I10 - Essential (primary) hypertension Status: Acute Assessment and Plan: Stable. History of Present Illness History of Present Illness Consult date/time: 01/28/25 08:13 Reason For Visit: CVA Narrative: 59 yr old man who is my regular cardiology patient and a patient of Dr. Martinez presents to ER with right sided numbness. He has a history of aortic stenosis, bicuspid aortic valve, thoracic aortic aneurysm, DM, hypertension, LON on CPAP. is at bedside. States that night before last he noted right arm tingling and numbness and his usual ocular migraine, went to bed, woke up and still had arm numbness and right leg numbness and decrease sensation to his face. States a week ago he passed out in his kitchen. Last evening on telemetry from about 6-8 pm he had intermittent 2nd degree AV block, type II and had dizziness with it. Reports he can walk miles without any problems. Denies chest pain, sob, orthopnea, PND, edema, dizziness, palpitations. Cardiovascular Procedures Echo/MUGA:: 01/19/24 Echo: EF 60-65%, mild LVH, mild LAE, bicuspid aortic valve, mod (RICK 1.0 cm2, mean 25 mmHg, 3.2 m/s), mild AI/MR, trace TR, prox ascending aorta 4.3 cm. 08/13/23 Echo: EF 50-55%, mild LVE, mod LVH, diastolic dysfunction (E/e' 11), mild biatrial enlargement, bicuspid aortic valve (RICK 0.7 cm2, mean 28 mmHg). Electrophysiology:: 03/19/23 EKG: Sinus rhythm, inferior infarct, age indeterminate. Stress Tests:: 02/11/24 CTA chest: Fusiform 4.4 cm ascending aortic aneurysm. Cholelithiasis. Review of Systems Review of Systems: All systems reviewed & are unremarkable except as noted in HPI and below Constitutional: Constitutional: Reports as per HPI, Denies chills and Denies fever(s) Cardiovascular: Cardiovascular: Reports as per HPI, Denies chest pain and Denies irregular heart rhythm Respiratory: Respiratory: Reports as per HPI and Denies dyspnea Gastrointestinal: Gastrointestinal: Reports as per HPI and Denies abdominal pain Genitourinary: Genitourinary: Reports as per HPI and Denies dysuria Musculoskeletal: Musculoskeletal: Reports as per HPI Neurologic: Reports as per HPI, Reports dizziness and Denies syncope [facility] Past Medical History Medical History (Updated 01/27/25 @ 21:11 by Loraine Galloway APRN) Gout Obstructive sleep apnea on CPAP (~2014) Perirectal abscess History of diverticulosis Male erectile dysfunction, unspecified Umbilical hernia without obstruction or gangrene Testicular hypofunction Essential (primary) hypertension Type 2 diabetes mellitus without complications Gastro-esophageal reflux disease without esophagitis Insomnia, unspecified Surgical History Surgical History History of repair of left rotator cuff (~2014) History of repair of right rotator cuff (~2012) Family History Family History Mother Breast cancer Esophageal cancer Cerebrovascular accident Diabetes mellitus Heart disease Age older than 80 years Father , Age 75 Depression Diabetes mellitus Sibling Cerebrovascular accident 1 sister Diabetes mellitus Multiple siblings Other Colon polyp Hypertension Social History Social History Smoking status: Never smoker Second hand tobacco smoke exposure: No Alcohol intake: former Alcohol use details: Extremely rare alcohol use Substance use: never Substance use type: does not use Do You Feel Safe in your Home?: Yes Lack of Transportation: No Lack of Food: Never True Current Housing: I Have Housing Concerned About Future Housing: No Difficulty Paying Gas/Electric Bills: No Difficulty Paying for Meds: No Currently Unemployed: No Education: Decline to Answer Difficulty w/ Childcare or Family Care: No Living arrangements: with family Additional living arrangements comments: He lives with his of 25 years. He has 3 step children and no biologic children. 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 Gender identity (if verbalized by the patient): Male Sexual Orientation (if Verbalized by the Patient): Straight or Heterosexual Spiritual care concerns: No Agree to blood products: Yes Meds Home Medications and Allergies Home Medications ?Medication ?Instructions ?Recorded ?Confirmed ?Type indomethacin 50 mg capsule 50 mg PO BID PRN Gout #180 caps 04/18/24 01/27/25 Rx metformin 500 mg tablet,extended 1,000 mg (2 x 500 mg) PO DAILY 04/20/24 01/27/25 Rx release 24 hr #180 tabs lisinopril 10 mg tablet 10 mg PO QHS #90 tabs 04/25/24 01/27/25 Rx sildenafil 100 mg tablet 100 mg PO DAILY PRN sexual 05/31/24 01/27/25 Rx activity #30 tabs testosterone cypionate 200 mg/mL 300 mg (1.5 mL) IM .every 2 weeks 10/17/24 01/27/25 Rx intramuscular oil #12 mL (Depo-Testosterone) lorazepam 1 mg tablet 1 mg PO QHS PRN sleep #30 tabs 11/01/24 01/27/25 Rx syringe with needle 3 mL 22 gauge #10 ea 11/17/24 01/27/25 Rx x 1 metoprolol succinate 25 mg See Rx Instructions .Route 12/07/24 01/27/25 Rx tablet,extended release 24 hr .COMPLEX #45 tabs Allergies Allergy/AdvReac Type Severity Reaction Status Date / Time No Known Allergies Allergy Verified 01/27/25 18:11 Vital Signs Vital Signs - 24 hr 01/27/25 11:01 01/27/25 11:31 01/27/25 12:00 Temperature 97.6 F Pulse Rate 71 70 70 Respiratory Rate 16 16 14 Blood Pressure 131/86 124/78 127/88 Pulse Oximetry 99 98 97 Oxygen Delivery Room Air 01/27/25 12:30 01/27/25 13:30 01/27/25 13:30 Temperature Pulse Rate 69 72 77 Respiratory Rate 14 15 18 Blood Pressure 127/88 131/90 131/90 Pulse Oximetry 97 98 97 Oxygen Delivery 01/27/25 14:00 01/27/25 16:15 01/27/25 16:30 Temperature Pulse Rate 74 76 77 Respiratory Rate 14 15 14 Blood Pressure 112/84 152/89 H 133/80 Pulse Oximetry 98 98 97 Oxygen Delivery 01/27/25 17:00 01/27/25 17:30 01/27/25 17:40 Temperature 97.7 F Pulse Rate 74 77 Respiratory Rate 13 18 Blood Pressure 126/85 136/88 Pulse Oximetry 97 97 Oxygen Delivery 01/27/25 18:53 01/27/25 19:00 01/27/25 20:00 Temperature Pulse Rate 40 L 79 Respiratory Rate Blood Pressure Pulse Oximetry Oxygen Delivery Room Air 01/27/25 20:00 01/27/25 20:10 01/27/25 22:06 Temperature 98.1 F Pulse Rate 81 80 Respiratory Rate 18 Blood Pressure 135/65 Pulse Oximetry 95 96 Oxygen Delivery Room Air Autopap 01/28/25 00:00 01/28/25 04:00 01/28/25 05:04 Temperature 98 F Pulse Rate 71 67 74 Respiratory Rate 20 Blood Pressure 111/75 Pulse Oximetry 98 Oxygen Delivery Exam Const: General: cooperative, healthy appearing and comfortable Resp: Auscultation: clear to auscultation bilaterally, no crackles, no rales, no rhonchi and no wheezes Cardio: Rate: regular rate Rhythm: regular rhythm Heart sounds: Murmur heart sound present (III/ systolic murmur right ICS) Peripheral pulses: dorsalis pedis present GI: GI Palp: No abdominal tenderness and Yes Soft to palpation Neuro: General: oriented to person, oriented to place and oriented to time Extrem: Right lower extremity: no edema Left lower extremity: no edema Results Labs and Meds 01/28/25 05:30 01/28/25 05:30 Lab results: Cardiac Enzymes 01/27/25 01/27/25 Range/Units 12:24 12:24 AST 26 (17-59) U/L Troponin I 0.019 0.018 (0.000-0.034) ng/mL Coagulation 01/27/25 Range/Units 12:24 PT 13.8 (11.1-14.7) Seconds APTT 22.7 (22.3-36.8) Seconds Lipids 01/28/25 Range/Units 05:30 Triglycerides 118 (<150) mg/dL Cholesterol 145 (0-200) mg/dL CBC 01/27/25 01/28/25 Range/Units 12:24 05:30 WBC 7.7 7.9 (4.5-10.0) K/mm3 RBC 5.42 5.29 (4.6-6.20) M/mm3 Hgb 16.4 16.2 (14.0-18.0) g/dL Hct 48.6 47.9 (42.0-52.0) % Plt Count 146 L 155 (150-375) k/mm3 Lymph # (Auto) 1.15 1.47 (0.9-3.2) K/mm3 [place] # (Auto) 0.5 0.6 (0.1-0.6) K/mm3 Eos # (Auto) 0.1 0.1 (0-0.3) K/mm3 Baso # (Auto) 0.1 0.0 (0.0-0.1) K/mm3 Comprehensive Metabolic Panel 01/27/25 01/28/25 Range/Units 12:24 05:30 Sodium 138 138 (137-145) mmol/L Potassium 4.6 4.4 (3.4-5.0) mmol/L Chloride 106 103 (98-107) mmol/L Carbon Dioxide 19 L 25 (22-30) mmol/L BUN 25 H 23 H (9-20) mg/dL Creatinine 1.32 H 1.56 H (0.7-1.3) mg/dL Glucose 135 H 129 H (65-110) mg/dL Calcium 9.3 9.0 (8.4-10.2) mg/dL AST 26 (17-59) U/L ALT 27 (6-50) U/L Alkaline Phosphatase 56 (38-126) U/L Total Protein 8.0 (6.3-8.2) g/dL Albumin 4.4 (3.5-5.1) g/dL Intake and Output 01/27/25 01/28/25 01/28/25 23:59 07:59 15:59 Intake Total 120 50 Balance 120 50 Intake: Oral 120 50 Other: # Unmeasured Voids 1 1
[2025-01-28] MEDS: ATORVASTATIN 40 MG TABLET PO (08:25)
[2025-01-28] MEDS: CLOPIDOGREL BISULFATE 75 MG TABLET PO (08:26)
[2025-01-28] MEDS: ASPIRIN 81 MG ENTERIC TABLET PO (08:26)
[2025-01-28 09:48] LABS: Glucose Point of Care 139 mg/dl (65-105)
--- NOTE | 2025-01-28 10:35 | PM.IMPN ---
Progress Note: A&P Assessment and Plan (1) Right sided numbness: Code(s): R20.0 - Anesthesia of skin Status: Acute Assessment and Plan: New deficits of right-sided numbness starting on 01/27 at 8:30 p.m. Last known well at 3:00 p.m. on 01/26. - admission for observation and telemetry - not candidate for thrombolytics due to timeframe - not candidate for thrombectomy, no LVO on CT - CTA head/neck 1. <10% stenosis of the right carotid bulb relative to normal distal artery lumen diameter (NASCET criteria). 2. 0% stenosis of the left carotid bulb relative to normal distal artery lumen diameter. 3. 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 No acute intracranial process. 4. Unremarkable cerebral CT angiogram with no hemodynamically significant stenosis, aneurysm or thrombosis. 5. Partially visualized ascending thoracic aortic aneurysm. - neurology consulted - brain MRI w/wo ordered- pending results this am - echo w/Bubble ordered - neuro checks Q4 - check lipid panel and A1C - Atorvastatin 40 mg PO, Plavix 75 mg PO, ASA 81 mg - consider 30 day event monitoring at discharge (2) Second degree heart block: Code(s): I44.1 - Atrioventricular block, second degree Status: Acute Assessment and Plan: - new 2nd degree heart block seen on telemetry, will attempt to capture via EKG - cardiology consulted - hold home metoprolol - telemetry monitoring -cardiology consulted- following, notes reviewed: Probably contributed by Metoprolol which his last dose was 01/26/25 at 4:30 pm. Intermittent type II block on 01/27/25 around 6-8 pm. Monitor on telemetry. Stop Metoprolol. 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: without assisted use Qualified Code(s): E11.9 - Type 2 diabetes mellitus without complications Code(s): E11.9 - Type 2 diabetes mellitus without complications Status: Acute Assessment and Plan: - hypoglycemia protocol - POC blood glucose ACHS - home medication: Hold metformin - correct regimen ordered - low dose TIDWM, based off TDD - A1C 6.7% in 2022, update (4) Essential (primary) hypertension: Code(s): I10 - Essential (primary) hypertension Status: Acute Assessment and Plan: - chronic, currently 136/88 - continue home medications: Lisinopril 10 mg daily - monitor (5) Obstructive sleep apnea on CPAP: Onset Date: ~2014 Code(s): G47.33 - Obstructive sleep apnea (adult) (pediatric); Z99.89 - Dependence on other enabling machines and devices Status: Acute Assessment and Plan: - continue home CPAP (6) Ascending aortic aneurysm: Onset Date: 12/2023 Code(s): I71.21 - Aneurysm of the ascending aorta, without rupture Status: Acute Assessment and Plan: Stable at 4.4 cm Was on Metoprolol for this to decrease shear stress- but metoprolol stopped monitor bp for now 111/75 this am Plan Diet: Diabetic GI Prophylaxis: Not currently indicated DVT Prophylaxis: SCDs Lines: Peripheral Code Status: Full code Time Spent With Patient Time with patient: 25 - 35 minutes Subjective Date/time seen: 01/28/25 10:35 Interval history: 59 y/o M presents here with headache and focal numbness with PMH of ocular migraines, gout, LON, hypertension, diabetes, GERD, insomnia, and testicular hypofunction. Pt admitted for further evaluation of headache and right-sided numbness. Cardiology was consulted and pt was seen today. Metoprolol stopped. Tele monitoring. Echo ordered. Pt is seen and examined. He is pleasant. Still has some numbness to rt side but somewhat better. Strengh is equal. no facial droop. NO chest pain, no n/v/d. Review of Systems Review of Systems: All systems reviewed & are unremarkable except as noted in HPI and below Exam Const: General: comfortable Eyes: General: appearance normal, both eyes and all related structures Neck: Neck: supple Resp: Effort & Inspection: normal respiratory effort Auscultation: clear to auscultation bilaterally Cardio: Rate: regular rate Rhythm: regular rhythm GI: GI Palp: Yes Soft to palpation Auscultation: normal bowel sounds Skin: General skin exam: normal color Neuro: Speech: normal speech Motor exam (neuro): 5/5 motor strength present throughout Extrem: General: normal to inspection Psych: Affect: normal affect Objective Data Vital Signs Vital Signs: Vital Signs - 24 hr 01/27/25 11:01 01/27/25 11:31 01/27/25 12:00 Temperature 97.6 F Pulse Rate 71 70 70 Respiratory Rate 16 16 14 Blood Pressure 131/86 124/78 127/88 Pulse Oximetry 99 98 97 Oxygen Delivery Room Air 01/27/25 12:30 01/27/25 13:30 01/27/25 13:30 Temperature Pulse Rate 69 72 77 Respiratory Rate 14 15 18 Blood Pressure 127/88 131/90 131/90 Pulse Oximetry 97 98 97 Oxygen Delivery 01/27/25 14:00 01/27/25 16:15 01/27/25 16:30 Temperature Pulse Rate 74 76 77 Respiratory Rate 14 15 14 Blood Pressure 112/84 152/89 H 133/80 Pulse Oximetry 98 98 97 Oxygen Delivery 01/27/25 17:00 01/27/25 17:30 01/27/25 17:40 Temperature 97.7 F Pulse Rate 74 77 Respiratory Rate 13 18 Blood Pressure 126/85 136/88 Pulse Oximetry 97 97 Oxygen Delivery 01/27/25 18:53 01/27/25 19:00 01/27/25 20:00 Temperature Pulse Rate 40 L 79 Respiratory Rate Blood Pressure Pulse Oximetry Oxygen Delivery Room Air 01/27/25 20:00 01/27/25 20:10 01/27/25 22:06 Temperature 98.1 F Pulse Rate 81 80 Respiratory Rate 18 Blood Pressure 135/65 Pulse Oximetry 95 96 Oxygen Delivery Room Air Autopap 01/28/25 00:00 01/28/25 04:00 01/28/25 05:04 Temperature 98 F Pulse Rate 71 67 74 Respiratory Rate 20 Blood Pressure 111/75 Pulse Oximetry 98 Oxygen Delivery 01/28/25 08:28 01/28/25 08:28 Temperature Pulse Rate 68 Respiratory Rate Blood Pressure Pulse Oximetry Oxygen Delivery Autopap Intake/Output Intake/Output: Intake & Output 01/25/25 01/26/25 01/27/25 01/28/25 23:59 23:59 23:59 23:59 Intake Total 120 290 Balance 120 290 Meds/Results Medications: Active Medications Generic Name Dose Route Start Last Admin Trade Name Freq PRN Reason Stop Dose Admin Aspirin 81 mg 01/28/25 09:00 01/28/25 08:26 Aspirin 81 Mg Enteric Tablet PO 81 mg QAM PIETRO Administration Atorvastatin Calcium 40 mg 01/28/25 09:00 01/28/25 08:25 Atorvastatin 40 Mg Tablet PO 40 mg DAILY PIETRO Administration Clopidogrel Bisulfate 75 mg 01/28/25 09:00 01/28/25 08:26 Clopidogrel Bisulfate 75 Mg Tablet PO 75 mg QAM PIETRO Administration Dextrose 12.5 gm 01/27/25 19:24 Dextrose 50% 25 Gm/50 Ml Syringe IV PUSH PRN PRN Hypoglycemia Protocol Glucagon 1 mg 01/27/25 19:24 Glucagon For Inj 1 Mg Vial IM PRN PRN Hypoglycemia Protocol Glucose 15 gm 01/27/25 19:24 Glucose Oral Gel 15 Gm Of Glucse In 37.5 Gm Tube PO PRN PRN Hypoglycemia Protocol Dextrose 1,000 mls @ 100 mls/hr 01/27/25 19:24 Dextrose 5% 1,000 Ml IVPB PRN PRN Hypoglycemia Protocol Insulin Aspart 2 - 5 units 01/28/25 08:00 01/28/25 09:30 Insulin Aspart (*Bkc) 100 Units/Ml SUB-Q Not Given TIDWM PIETRO Protocol Lisinopril 10 mg 01/27/25 21:00 01/27/25 21:19 Lisinopril 10 Mg Tablet PO 10 mg QHS PIETRO Administration Lorazepam 1 mg 01/27/25 19:25 01/27/25 21:20 Lorazepam (*Crx) 1 Mg Tablet PO 1 mg QHS PRN Administration sleep Perflutren Lipid Microsphere 0 ml 01/27/25 19:23 Perflutren Lipid Microspheres 1.5 Ml Vial Diluted To 10 Ml Total Volume IV PUSH 01/30/25 19:23 ONCE PRN adequate visualization Protocol Radiology Results: ITS Impressions Head/Neck CTA 01/27/25 13:15 IMPRESSION: 1. <10% stenosis of the right carotid bulb relative to normal distal artery lumen diameter (NASCET criteria). 2. 0% stenosis of the left carotid bulb relative to normal distal artery lumen diameter. 3. 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 No acute intracranial process. 4. Unremarkable cerebral CT angiogram with no hemodynamically significant stenosis, aneurysm or thrombosis. 5. Partially visualized ascending thoracic aortic aneurysm. Labs Labs: Laboratory Results - last 24 hr 01/27/25 01/27/25 01/27/25 12:24 12:24 12:30 WBC 7.7 RBC 5.42 Hgb 16.4 Hct 48.6 MCV 89.7 MCH 30.3 MCHC 33.7 RDW 14.1 Plt Count 146 L MPV 10.8 H Immature Gran % (Auto) 0.4 Neut % (Auto) 77.0 H Lymph % (Auto) 15.0 L [place] % (Auto) 6.1 Eos % (Auto) 0.8 Baso % (Auto) 0.7 Lymph # (Auto) 1.15 [place] # (Auto) 0.5 Eos # (Auto) 0.1 Baso # (Auto) 0.1 Abs Immat Gran (auto) 0.03 Absolute Neuts (auto) 5.9 Absolute Nucleated RBC 0.000 Nucleated RBC % 0.0 PT 13.8 INR 1.0 APTT 22.7 Sodium 138 Potassium 4.6 Chloride 106 Carbon Dioxide 19 L Anion Gap 13 H BUN 25 H Creatinine 1.32 H Estim Creat Clear Calc Not Reportable Estimated GFR 56 L Glucose 135 H POC Capillary Glucose 134 H Hemoglobin A1c Calcium 9.3 Phosphorus 3.4 Magnesium 1.9 Total Bilirubin 2.0 H AST 26 ALT 27 Alkaline Phosphatase 56 Troponin I 0.019 0.018 NT-Pro-B Natriuret Pep 425 H Total Protein 8.0 Albumin 4.4 Triglycerides Cholesterol LDL Cholesterol Direct HDL Direct Lipase 280 Urine Color Urine Appearance Urine pH Ur Specific [place] Urine Protein Urine Glucose (UA) Urine Ketones Ur Blood (Man) Urine Nitrate Urine Bilirubin Urine Urobilinogen Leukocyte Esterase Rfl Urine RBC Urine WBC Ur Squamous Epith Cells Urine Bacteria Urine Casts 01/27/25 01/27/25 01/27/25 13:31 16:17 16:50 WBC RBC Hgb Hct MCV MCH MCHC RDW Plt Count MPV Immature Gran % (Auto) Neut % (Auto) Lymph % (Auto) [place] % (Auto) Eos % (Auto) Baso % (Auto) Lymph # (Auto) [place] # (Auto) Eos # (Auto) Baso # (Auto) Abs Immat Gran (auto) Absolute Neuts (auto) Absolute Nucleated RBC Nucleated RBC % PT INR APTT Sodium Potassium Chloride Carbon Dioxide Anion Gap BUN Creatinine Estim Creat Clear Calc Estimated GFR Glucose POC Capillary Glucose 130 H 131 H Hemoglobin A1c Calcium Phosphorus Magnesium Total Bilirubin AST ALT Alkaline Phosphatase Troponin I NT-Pro-B Natriuret Pep Total Protein Albumin Triglycerides Cholesterol LDL Cholesterol Direct HDL Direct Lipase Urine Color Yellow Urine Appearance Clear Urine pH 5.0 Ur Specific [place] 1.023 Urine Protein Trace Urine Glucose (UA) Negative Urine Ketones Negative Ur Blood (Man) Negative Urine Nitrate Negative Urine Bilirubin Negative Urine Urobilinogen 0.2 Leukocyte Esterase Rfl Negative Urine RBC 0-2 Urine WBC 0-5 Ur Squamous Epith Cells None seen Urine Bacteria None seen Urine Casts 0-2 01/27/25 01/28/25 01/28/25 21:09 05:30 09:25 WBC 7.9 RBC 5.29 Hgb 16.2 Hct 47.9 MCV 90.5 MCH 30.6 MCHC 33.8 RDW 14.3 Plt Count 155 MPV 10.4 Immature Gran % (Auto) 0.4 Neut % (Auto) 71.8 Lymph % (Auto) 18.6 [place] % (Auto) 8.1 Eos % (Auto) 0.6 Baso % (Auto) 0.5 Lymph # (Auto) 1.47 [place] # (Auto) 0.6 Eos # (Auto) 0.1 Baso # (Auto) 0.0 Abs Immat Gran (auto) 0.03 Absolute Neuts (auto) 5.7 Absolute Nucleated RBC 0.000 Nucleated RBC % 0.0 PT INR APTT Sodium 138 Potassium 4.4 Chloride 103 Carbon Dioxide 25 Anion Gap 10 BUN 23 H Creatinine 1.56 H Estim Creat Clear Calc 57 Estimated GFR 46 L Glucose 129 H POC Capillary Glucose 179 H 139 H Hemoglobin A1c 6.4 H Calcium 9.0 Phosphorus Magnesium Total Bilirubin AST ALT Alkaline Phosphatase Troponin I NT-Pro-B Natriuret Pep Total Protein Albumin Triglycerides 118 Cholesterol 145 LDL Cholesterol Direct 83 HDL Direct 24 Lipase Urine Color Urine Appearance Urine pH Ur Specific [place] Urine Protein Urine Glucose (UA) Urine Ketones Ur Blood (Man) Urine Nitrate Urine Bilirubin Urine Urobilinogen Leukocyte Esterase Rfl Urine RBC Urine WBC Ur Squamous Epith Cells Urine Bacteria Urine Casts Quality VTE Prophylaxis VTE prophylaxis: mechanical ordered
--- NOTE | 2025-01-28 11:21 | WPDNEURCNPN ---
Consult date: 01/28/25 HPI: George Barriga is a 59 year old male Admitted to the hospital through the emergency room for the complaints of right upper extremity numbness and right lower extremity initially went to the primary care office and was directed to come to the emergency room by the time he came to the ER he was complaining of only numbness in the right upper extremity had no visual changes, had no difficulties in speech, and his migrainous headache had resolved. Gave no history of cerebrovascular accident in the past, he has history of ocular migraine in the past, he is not allergic to any medications in the past, and his medical history is consistent with type 2 diabetes mellitus, hypertension, obstructive sleep apnea, and gout. He has undergone left rotator cuff surgery and right rotator cuff surgery. He has never smoker, currently alcohol intake or, but rarely and he has initial exam in the emergency room were grossly unremarkable. His vital signs were normal, CBC was with platelet count 146, BMP with BUN of 25 creatinine 1.32 blood sugar 135, UA was normal, his head and neck CTA documented small old infarct of the left thalamus without evidence of any intracranial aneurysm or obstruction, but partially visualized ascending thoracic aortic aneurysm. He is taking indomethacin 50mg twice a day, lisinopril 10mg at night, metformin 1000mg daily, metoprolol daily, and sildenafil with Depo testosterone. Review of Systems Review of Systems: All systems reviewed & are unremarkable except as noted in HPI and below PMFSH Past Medical History Medical History Gout Obstructive sleep apnea on CPAP (~2014) Perirectal abscess History of diverticulosis Male erectile dysfunction, unspecified Umbilical hernia without obstruction or gangrene Testicular hypofunction Essential (primary) hypertension Type 2 diabetes mellitus without complications Gastro-esophageal reflux disease without esophagitis Insomnia, unspecified Surgical History Surgical History History of repair of left rotator cuff (~2014) History of repair of right rotator cuff (~2012) Family History Family History Mother Breast cancer Esophageal cancer Cerebrovascular accident Diabetes mellitus Heart disease Age older than 80 years Father , Age 75 Depression Diabetes mellitus Sibling Cerebrovascular accident 1 sister Diabetes mellitus Multiple siblings Other Colon polyp Hypertension Social History Social History Smoking status: Never smoker Second hand tobacco smoke exposure: No Alcohol intake: former Alcohol use details: Extremely rare alcohol use Substance use: never Substance use type: does not use Do You Feel Safe in your Home?: Yes Lack of Transportation: No Lack of Food: Never True Current Housing: I Have Housing Concerned About Future Housing: No Difficulty Paying Gas/Electric Bills: No Difficulty Paying for Meds: No Currently Unemployed: No Education: Decline to Answer Difficulty w/ Childcare or Family Care: No Living arrangements: with family Additional living arrangements comments: He lives with his of 25 years. He has 3 step children and no biologic children. 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 Gender identity (if verbalized by the patient): Male Sexual Orientation (if Verbalized by the Patient): Straight or Heterosexual Spiritual care concerns: No Agree to blood products: Yes Meds Home Medications and Allergies Home Medications ?Medication ?Instructions ?Recorded ?Confirmed ?Type indomethacin 50 mg capsule 50 mg PO BID PRN Gout #180 caps 04/18/24 01/27/25 Rx metformin 500 mg tablet,extended 1,000 mg (2 x 500 mg) PO DAILY 04/20/24 01/27/25 Rx release 24 hr #180 tabs lisinopril 10 mg tablet 10 mg PO QHS #90 tabs 04/25/24 01/27/25 Rx sildenafil 100 mg tablet 100 mg PO DAILY PRN sexual 05/31/24 01/27/25 Rx activity #30 tabs testosterone cypionate 200 mg/mL 300 mg (1.5 mL) IM .every 2 weeks 10/17/24 01/27/25 Rx intramuscular oil #12 mL (Depo-Testosterone) lorazepam 1 mg tablet 1 mg PO QHS PRN sleep #30 tabs 11/01/24 01/27/25 Rx syringe with needle 3 mL 22 gauge #10 ea 11/17/24 01/27/25 Rx x 1 metoprolol succinate 25 mg See Rx Instructions .Route 12/07/24 01/27/25 Rx tablet,extended release 24 hr .COMPLEX #45 tabs Allergies Allergy/AdvReac Type Severity Reaction Status Date / Time No Known Allergies Allergy Verified 01/27/25 18:11 Vital Signs Vital Signs - 24 hr 01/27/25 11:31 01/27/25 12:00 01/27/25 12:30 Temperature Pulse Rate 70 70 69 Respiratory Rate 16 14 14 Blood Pressure 124/78 127/88 127/88 Pulse Oximetry 98 97 97 Oxygen Delivery 01/27/25 13:30 01/27/25 13:30 01/27/25 14:00 Temperature Pulse Rate 72 77 74 Respiratory Rate 15 18 14 Blood Pressure 131/90 131/90 112/84 Pulse Oximetry 98 97 98 Oxygen Delivery 01/27/25 16:15 01/27/25 16:30 01/27/25 17:00 Temperature Pulse Rate 76 77 74 Respiratory Rate 15 14 13 Blood Pressure 152/89 H 133/80 126/85 Pulse Oximetry 98 97 97 Oxygen Delivery 01/27/25 17:30 01/27/25 17:40 01/27/25 18:53 Temperature 36.5 C Pulse Rate 77 Respiratory Rate 18 Blood Pressure 136/88 Pulse Oximetry 97 Oxygen Delivery Room Air 01/27/25 19:00 01/27/25 20:00 01/27/25 20:00 Temperature Pulse Rate 40 L 79 Respiratory Rate Blood Pressure Pulse Oximetry Oxygen Delivery Room Air 01/27/25 20:10 01/27/25 22:06 01/28/25 00:00 Temperature 36.7 C Pulse Rate 81 80 71 Respiratory Rate 18 Blood Pressure 135/65 Pulse Oximetry 95 96 Oxygen Delivery Autopap 01/28/25 04:00 01/28/25 05:04 01/28/25 08:28 Temperature 36.6 C Pulse Rate 67 74 Respiratory Rate 20 Blood Pressure 111/75 Pulse Oximetry 98 Oxygen Delivery Autopap 01/28/25 08:28 Temperature Pulse Rate 68 Respiratory Rate Blood Pressure Pulse Oximetry Oxygen Delivery Results Labs 01/28/25 05:30 01/28/25 05:30 Labs: Short CBC 01/27/25 01/28/25 Range/Units 12:24 05:30 WBC 7.7 7.9 (4.5-10.0) K/mm3 Hgb 16.4 16.2 (14.0-18.0) g/dL Hct 48.6 47.9 (42.0-52.0) % Plt Count 146 L 155 (150-375) k/mm3 BMP 01/27/25 01/28/25 12:24 05:30 Sodium 138 138 Potassium 4.6 4.4 Chloride 106 103 Carbon Dioxide 19 L 25 BUN 25 H 23 H Creatinine 1.32 H 1.56 H Glucose 135 H 129 H Calcium 9.3 9.0 Cardiac Enzymes 01/27/25 01/27/25 Range/Units 12:24 12:24 Troponin I 0.019 0.018 (0.000-0.034) ng/mL Liver Function 01/27/25 Range/Units 12:24 Total Bilirubin 2.0 H (0.2-1.3) mg/dL AST 26 (17-59) U/L ALT 27 (6-50) U/L Alkaline Phosphatase 56 (38-126) U/L Albumin 4.4 (3.5-5.1) g/dL Urine 01/27/25 Range/Units 13:31 Urine Color Yellow (Yellow) Urine Appearance Clear (Clear) Urine pH 5.0 (5.0-9.0) Ur Specific [place] 1.023 (1.001-1.035) Urine Protein Trace (Negative) mg/dL Urine Glucose (UA) Negative (Negative) mg/dL
[2025-01-28 12:28] LABS: Glucose Point of Care 148 mg/dl (65-105)
--- NOTE | 2025-01-28 12:30 | PC.NURSE ---
RN spoke with Dr. Santo verbally at nurses station and confirmed he was going to see the patient in [address]. Dr[address] Santo verbalized yes. RICKY Mckinley saw Dr. Santo in room 341. RN just spoke with spouse of [address] Santo never came in and spoke with them and its 1540. RN called Dr. Santo and there was no answer. RN reached out to hospitalist Oneyda and informed her of the situation.
[2025-01-28 16:54] LABS: Glucose Point of Care 111 mg/dl (65-105)
[2025-01-28 18:40] LABS: Glucose Point of Care 227 mg/dl (65-105)
[2025-01-28] MEDS: LORazepam (*CRX) 1 MG TABLET PO (21:07)
[2025-01-28] MEDS: lisinopriL 10 MG TABLET PO (21:08)
[2025-01-29] VITALS (11 sets, daily range): BP systolic 122–133; BP diastolic 64–83; PULSE 60–82; RESP 16–20; TEMP 36.3–36.6; O2SAT 93–98
[2025-01-29 06:51] LABS: Glucose Point of Care 135 mg/dl (65-105)
[2025-01-29] MEDS: ASPIRIN 81 MG ENTERIC TABLET PO (08:30)
[2025-01-29] MEDS: ATORVASTATIN 40 MG TABLET PO (08:30)
[2025-01-29] MEDS: CLOPIDOGREL BISULFATE 75 MG TABLET PO (08:30)
--- NOTE | 2025-01-29 08:36 | P.PNCA_ITS ---
Progress Note: A&P Assessment and Plan (1) Acute CVA (cerebrovascular accident): Code(s): I63.9 - Cerebral infarction, unspecified Status: Acute Assessment and Plan: CTA neck/brain shows <10% right carotid bulb stenosis. MRI brain shows acute left thalamus infarct. Started on aspirin, plavix, lipitor. Neurology consulted. (2) Second degree heart block: Code(s): I44.1 - Atrioventricular block, second degree Status: Acute Assessment and Plan: Probably contributed by Metoprolol which his last dose was 01/26/25 at 4:30 pm. Intermittent type II block on 01/27/25 around 6-8 pm. Monitor on telemetry and no recurrence of heart block. Stopped Metoprolol. If resolves during hospitalization, will need event monitor upon discharge. (3) Bicuspid aortic valve: Code(s): Q23.1 - Congenital insufficiency of aortic valve Status: Acute (4) Aortic stenosis: Code(s): I35.0 - Nonrheumatic aortic (valve) stenosis Status: Acute Assessment and Plan: Symptomatic aortic stenosis with more recent COPELAND, fatigue, and syncopal episode a week ago. 01/28/25 Echo: EF 55-60%, mod LVH, diastolic dysfunction (E/e' 10), mod LAE, mild RAFA, bicuspid aortic valve, severe (RICK 0.8 cm2, mean gradient 49 mmHg, peak velocity 4.5 m/s), trace AI/TR, RVSP 42 mmHg, aortic root 3.9 cm, prox ascending aorta 4.4 cm. Discuss at length with patient and his about management of symptomatic to have preop workup including LHC and ELY, but don't know if he would have valve replacement during this hospitalization or wait given the acute stroke. They are agreeable to be transferred to [facility] and to discuss with heart team there along with neurologist about the optimal timing for aortic valve replacement. We would not want to perform the preop workup here and find out he would not have AVR for 6 months, in which case he may need those procedures repeated. (5) Ascending aortic aneurysm: Onset Date: 12/2023 Code(s): I71.21 - Aneurysm of the ascending aorta, without rupture Status: Acute Assessment and Plan: Stable at 4.4 cm. Was on Metoprolol for this to decrease shear stress. (6) Essential (primary) hypertension: Code(s): I10 - Essential (primary) hypertension Status: Acute Assessment and Plan: Stable. Subjective Date/time seen: 01/29/25 08:36 Interval history: Reports RUE numbness is improving. No chest pain or sob. Exam Const: General: cooperative, healthy appearing and comfortable Orientation/consciousness: oriented to person, oriented to place and oriented to time Resp: Auscultation: clear to auscultation bilaterally, no crackles, no rales, no rhonchi and no wheezes Cardio: Rate: regular rate Rhythm: regular rhythm Heart sounds: Murmur heart sound present (IV/ systolic murmur right ICS) Peripheral pulses: dorsalis pedis present Neuro: General: oriented to person, oriented to place and oriented to time Extrem: Right lower extremity: no edema Left lower extremity: no edema Objective Data Vital Signs Vital Signs: Vital Signs - 24 hr 01/28/25 12:00 01/28/25 14:00 01/28/25 16:00 Temperature 98.1 F Pulse Rate 77 74 73 Respiratory Rate 16 Blood Pressure 121/81 Pulse Oximetry 97 Oxygen Delivery 01/28/25 18:37 01/28/25 20:00 01/28/25 21:15 Temperature 98.2 F 98.1 F Pulse Rate 71 81 78 Respiratory Rate 18 18 Blood Pressure 137/74 130/83 Pulse Oximetry 98 95 Oxygen Delivery 01/28/25 22:51 01/29/25 00:00 01/29/25 03:52 Temperature Pulse Rate 82 74 82 Respiratory Rate Blood Pressure Pulse Oximetry 93 93 Oxygen Delivery Autopap Autopap 01/29/25 04:00 01/29/25 04:37 Temperature 97.9 F Pulse Rate 73 60 Respiratory Rate 18 Blood Pressure 122/64 Pulse Oximetry 97 Oxygen Delivery Intake/Output Intake/Output: Intake & Output 01/26/25 01/27/25 01/28/25 01/29/25 23:59 23:59 23:59 23:59 Intake Total 120 970 250 Balance 120 970 250 Meds/Results Medications: Active Medications Generic Name Dose Route Start Last Admin Trade Name Freq PRN Reason Stop Dose Admin Aspirin 81 mg 01/28/25 09:00 01/29/25 08:30 Aspirin 81 Mg Enteric Tablet PO 81 mg QAM PIETRO Administration Atorvastatin Calcium 40 mg 01/28/25 09:00 01/29/25 08:30 Atorvastatin 40 Mg Tablet PO 40 mg DAILY PIETRO Administration Clopidogrel Bisulfate 75 mg 01/28/25 09:00 01/29/25 08:30 Clopidogrel Bisulfate 75 Mg Tablet PO 75 mg QAM PIETRO Administration Dextrose 12.5 gm 01/27/25 19:24 Dextrose 50% 25 Gm/50 Ml Syringe IV PUSH PRN PRN Hypoglycemia Protocol Glucagon 1 mg 01/27/25 19:24 Glucagon For Inj 1 Mg Vial IM PRN PRN Hypoglycemia Protocol Glucose 15 gm 01/27/25 19:24 Glucose Oral Gel 15 Gm Of Glucse In 37.5 Gm Tube PO PRN PRN Hypoglycemia Protocol Dextrose 1,000 mls @ 100 mls/hr 01/27/25 19:24 Dextrose 5% 1,000 Ml IVPB PRN PRN Hypoglycemia Protocol Insulin Aspart 2 - 5 units 01/28/25 08:00 01/28/25 16:56 Insulin Aspart (*Bkc) 100 Units/Ml SUB-Q Not Given TIDWM PIETRO Protocol Lisinopril 10 mg 01/27/25 21:00 01/28/25 21:08 Lisinopril 10 Mg Tablet PO 10 mg QHS PIETRO Administration Lorazepam 1 mg 01/27/25 19:25 01/28/25 21:07 Lorazepam (*Crx) 1 Mg Tablet PO 1 mg QHS PRN Administration sleep Perflutren Lipid Microsphere 0 ml 01/27/25 19:23 Perflutren Lipid Microspheres 1.5 Ml Vial Diluted To 10 Ml Total Volume IV PUSH 01/30/25 19:23 ONCE PRN adequate visualization Protocol Radiology Results: ITS Impressions Head/Neck CTA 01/27/25 13:15 IMPRESSION: 1. <10% stenosis of the right carotid bulb relative to normal distal artery lumen diameter (NASCET criteria). 2. 0% stenosis of the left carotid bulb relative to normal distal artery lumen diameter. 3. 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 No acute intracranial process. 4. Unremarkable cerebral CT angiogram with no hemodynamically significant stenosis, aneurysm or thrombosis. 5. Partially visualized ascending thoracic aortic aneurysm. Brain MRI 01/28/25 11:43 IMPRESSION: 1. Acute left thalamic infarct. ADDENDUM: 01/28/25 1302 CORRECTION: Incorrect contrast dosage and agent is noted in the technique section. The study was performed without and with 20 mL ProHance intravenous contrast. Labs Labs: Laboratory Results - last 24 hr 01/28/25 01/28/25 01/28/25 09:25 12:26 16:37 POC Capillary Glucose 139 H 148 H 111 H 01/28/25 01/28/25 18:37 21:25 POC Capillary Glucose 227 H 135 H
[2025-01-29 09:05] LABS: Glucose Point of Care 126 mg/dl (65-105)
--- NOTE | 2025-01-29 12:48 | P.PNIM_ITS ---
Progress Note: A&P Assessment and Plan (1) Acute CVA (cerebrovascular accident): Code(s): I63.9 - Cerebral infarction, unspecified Status: Acute Assessment and Plan: New deficits of right-sided numbness starting on 01/27 at 8:30 p.m. Last known well at 3:00 p.m. on 01/26. - admission for observation and telemetry - not candidate for thrombolytics due to timeframe - not candidate for thrombectomy, no LVO on CT - CTA head/neck 1. <10% stenosis of the right carotid bulb relative to normal distal artery lumen diameter (NASCET criteria). 2. 0% stenosis of the left carotid bulb relative to normal distal artery lumen diameter. 3. 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 No acute intracranial process. 4. Unremarkable cerebral CT angiogram with no hemodynamically significant stenosis, aneurysm or thrombosis. 5. Partially visualized ascending thoracic aortic aneurysm. - neurology consulted - brain MRI w/wo ordered - echo w/Bubble ordered - neuro checks Q4 - check lipid panel and A1C - Atorvastatin 40 mg PO, Plavix 75 mg PO, ASA 81 mg -- MRI brain shows acute left thalamus infarct. Started on aspirin, plavix, lipito- continue. Neurology following (2) Right sided numbness: Code(s): R20.0 - Anesthesia of skin Status: Acute Assessment and Plan: see above (3) Aortic stenosis: Code(s): I35.0 - Nonrheumatic aortic (valve) stenosis Status: Acute Assessment and Plan: DR Mayer is following Symptomatic aortic stenosis with more recent COPELAND, fatigue, and syncopal episode a week ago. 01/28/25 Echo: EF 55-60%, mod LVH, diastolic dysfunction (E/e' 10), mod LAE, mild RAFA, bicuspid aortic valve, severe (RICK 0.8 cm2, mean gradient 49 mmHg, peak velocity 4.5 m/s), trace AI/TR, RVSP 42 mmHg, aortic root 3.9 cm, prox ascending aorta 4.4 cm. They are agreeable to be transferred to [facility] and to discuss with heart team there along with neurologist about the optimal timing for aortic valve replacement. We would not want to perform the preop workup here and find out he would not have AVR for 6 months, in which case he may need those procedures repeated. (4) Second degree heart block: Code(s): I44.1 - Atrioventricular block, second degree Status: Acute Assessment and Plan: - new 2nd degree heart block seen on telemetry, will attempt to capture via EKG - cardiology consulted - hold home metoprolol - telemetry monitoring -cardiology consulted- following, notes reviewed: Probably contributed by Metoprolol which his last dose was 01/26/25 at 4:30 pm. Intermittent type II block on 01/27/25 around 6-8 pm. Monitor on telemetry. Stop Metoprolol. If resolves during hospitalization, will need event monitor upon discharge (5) Type 2 diabetes mellitus: Qualifiers: Diabetes mellitus penitentiary insulin use: without assistant terminal manager use Diabetes mellitus complication status: without complication Qualified Code(s): E11.9 - Type 2 diabetes mellitus without complications Code(s): E11.9 - Type 2 diabetes mellitus without complications Status: Acute Assessment and Plan: - hypoglycemia protocol - POC blood glucose ACHS - home medication: Hold metformin - correct regimen ordered - low dose TIDWM, based off TDD - A1C 6.7% in 2022, update (6) Essential (primary) hypertension: Code(s): I10 - Essential (primary) hypertension Status: Acute Assessment and Plan: - chronic, currently 136/88 - continue home medications: Lisinopril 10 mg daily - monitor (7) Obstructive sleep apnea on CPAP: Onset Date: ~2014 Code(s): G47.33 - Obstructive sleep apnea (adult) (pediatric); Z99.89 - Dependence on other enabling machines and devices Status: Acute Assessment and Plan: - continue home CPAP (8) Ascending aortic aneurysm: Onset Date: 12/2023 Code(s): I71.21 - Aneurysm of the ascending aorta, without rupture Status: Acute Assessment and Plan: Stable at 4.4 cm Was on Metoprolol for this to decrease shear stress- but metoprolol stopped monitor bp for now 111/75 this am Plan Diet: Diabetic GI Prophylaxis: Not currently indicated DVT Prophylaxis: SCDs Lines: Peripheral Code Status: Full code Time Spent With Patient Time with patient: 25 - 35 minutes Subjective Date/time seen: 01/29/25 12:48 Interval history: seen and examined thia am. RUE numbness is stable. No chest pain or sob. Cardiology discussed transfer to [facility], per rn report DR Mayer is to facilitate it. Review of Systems Review of Systems: All systems reviewed & are unremarkable except as noted in HPI and below Exam Const: General: comfortable Eyes: General: appearance normal, both eyes and all related structures Neck: Neck: supple Resp: Effort & Inspection: normal respiratory effort Auscultation: clear to auscultation bilaterally Cardio: Rate: regular rate Rhythm: regular rhythm GI: Auscultation: normal bowel sounds Skin: General skin exam: normal color Neuro: Speech: normal speech Motor exam (neuro): 5/5 motor strength present throughout Extrem: General: normal to inspection Psych: Affect: normal affect Objective Data Vital Signs Vital Signs: Vital Signs - 24 hr 01/28/25 14:00 01/28/25 16:00 01/28/25 18:37 Temperature 98.1 F 98.2 F Pulse Rate 74 73 71 Respiratory Rate 16 18 Blood Pressure 121/81 137/74 Pulse Oximetry 97 98 Oxygen Delivery 01/28/25 20:00 01/28/25 21:15 01/28/25 22:51 Temperature 98.1 F Pulse Rate 81 78 82 Respiratory Rate 18 Blood Pressure 130/83 Pulse Oximetry 95 93 Oxygen Delivery Autopap 01/29/25 00:00 01/29/25 03:52 01/29/25 04:00 Temperature Pulse Rate 74 82 73 Respiratory Rate Blood Pressure Pulse Oximetry 93 Oxygen Delivery Autopap 01/29/25 04:37 01/29/25 08:20 01/29/25 08:20 Temperature 97.9 F Pulse Rate 60 77 Respiratory Rate 18 Blood Pressure 122/64 Pulse Oximetry 97 Oxygen Delivery Room Air Intake/Output Intake/Output: Intake & Output 01/26/25 01/27/25 01/28/25 01/29/25 23:59 23:59 23:59 23:59 Intake Total 120 970 890 Balance 120 970 890 Meds/Results Medications: Active Medications Generic Name Dose Route Start Last Admin Trade Name Freq PRN Reason Stop Dose Admin Aspirin 81 mg 01/28/25 09:00 01/29/25 08:30 Aspirin 81 Mg Enteric Tablet PO 81 mg QAM PIETRO Administration Atorvastatin Calcium 40 mg 01/28/25 09:00 01/29/25 08:30 Atorvastatin 40 Mg Tablet PO 40 mg DAILY PIETRO Administration Clopidogrel Bisulfate 75 mg 01/28/25 09:00 01/29/25 08:30 Clopidogrel Bisulfate 75 Mg Tablet PO 75 mg QAM PIETRO Administration Dextrose 12.5 gm 01/27/25 19:24 Dextrose 50% 25 Gm/50 Ml Syringe IV PUSH PRN PRN Hypoglycemia Protocol Glucagon 1 mg 01/27/25 19:24 Glucagon For Inj 1 Mg Vial IM PRN PRN Hypoglycemia Protocol Glucose 15 gm 01/27/25 19:24 Glucose Oral Gel 15 Gm Of Glucse In 37.5 Gm Tube PO PRN PRN Hypoglycemia Protocol Dextrose 1,000 mls @ 100 mls/hr 01/27/25 19:24 Dextrose 5% 1,000 Ml IVPB PRN PRN Hypoglycemia Protocol Insulin Aspart 2 - 5 units 01/28/25 08:00 01/29/25 08:48 Insulin Aspart (*Bkc) 100 Units/Ml SUB-Q Not Given TIDWM [facility] Protocol Lisinopril 10 mg 01/27/25 21:00 01/28/25 21:08 Lisinopril 10 Mg Tablet PO 10 mg QHS PIETRO Administration Lorazepam 1 mg 01/27/25 19:25 01/28/25 21:07 Lorazepam (*Crx) 1 Mg Tablet PO 1 mg QHS PRN Administration sleep Perflutren Lipid Microsphere 0 ml 01/27/25 19:23 Perflutren Lipid Microspheres 1.5 Ml Vial Diluted To 10 Ml Total Volume IV PUSH 01/30/25 19:23 ONCE PRN adequate visualization Protocol Radiology Results: ITS Impressions Head/Neck CTA 01/27/25 13:15 IMPRESSION: 1. <10% stenosis of the right carotid bulb relative to normal distal artery lumen diameter (NASCET criteria). 2. 0% stenosis of the left carotid bulb relative to normal distal artery lumen diameter. 3. 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 No acute intracranial process. 4. Unremarkable cerebral CT angiogram with no hemodynamically significant stenosis, aneurysm or thrombosis. 5. Partially visualized ascending thoracic aortic aneurysm. Brain MRI 01/28/25 11:43 IMPRESSION: 1. Acute left thalamic infarct. ADDENDUM: 01/28/25 1302 CORRECTION: Incorrect contrast dosage and agent is noted in the technique section. The study was performed without and with 20 mL ProHance intravenous contrast. Labs Labs: Laboratory Results - last 24 hr 01/28/25 01/28/25 01/28/25 16:37 18:37 21:25 POC Capillary Glucose 111 H 227 H 135 H 01/29/25 08:45 POC Capillary Glucose 126 H Quality VTE Prophylaxis VTE prophylaxis: mechanical ordered
[2025-01-29 13:32] LABS: Glucose Point of Care 131 mg/dl (65-105)
--- NOTE | 2025-01-29 14:20 | WPDNEURCNPN ---
Assessment and Plan Assessment and plan (1) Acute CVA (cerebrovascular accident): Code(s): I63.9 - Cerebral infarction, unspecified Status: Acute (2) Right sided numbness: Code(s): R20.0 - Anesthesia of skin Status: Acute (3) Ascending aortic aneurysm: Onset Date: 12/2023 Code(s): I71.21 - Aneurysm of the ascending aorta, without rupture Status: Acute (4) Bicuspid aortic valve: Code(s): Q23.1 - Congenital insufficiency of aortic valve Status: Acute (5) Aortic stenosis: Code(s): I35.0 - Nonrheumatic aortic (valve) stenosis Status: Acute (6) Type 2 diabetes mellitus: Qualifiers: Diabetes mellitus penitentiary insulin use: without intermediate accountant use Diabetes mellitus complication status: without complication Qualified Code(s): E11.9 - Type 2 diabetes mellitus without complications Code(s): E11.9 - Type 2 diabetes mellitus without complications Status: Acute (7) Idiopathic gout, unspecified site: Code(s): M10.00 - Idiopathic gout, unspecified site Status: Acute Plan 1. Left thalamic infarct 2. 4.4cm ascending thoracic aortic use the foam aneurysm 3. 10% stenosis of the right carotid bulb 5. Severe aortic valve sclerosis with peak velocity of 456centimeters/second and a mean gradient of 49mmHg with aortic valve area of 0.8 cm2 in addition to the left atrial send chamber moderate enlargement, trace aortic valve regurgitation, and mild mitral valve regurgitation as well. Proximal ascending aortic size is mildly dilated there is 4.4cm on echocardiogram. 6. Long discussion with the patient and his family about the pros and cons of the aortic valve stenosis and the present stroke he will definitely benefit from the tertiary care about the valve were stenosis and will be transferred to either [facility] or [facility] or as [facility] where ever the blood is available. Consult date: 01/29/25 HPI: George Barriga is a 59 year old male Admitted to the hospital through the emergency room for the complaints of right upper extremity numbness and right lower extremity numbness initially patient went to the primary care office and was directed to come to the emergency room by the time he came to the ER he was complaining of only numbness in the right upper extremity and had no visual changes. He mentioned that he had no difficulties in speech and his migrainous headache which he was experiencing initially had resolved. 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 Type 2 diabetes mellitus 2. Hypertension 3. Obstructive sleep apnea and 4. Gout. He has undergone rotator cuff surgery on his both shoulders. He is not a not a smoker or alcohol intake or except rarely. . His vital signs were normal. Routine lab studies included a CBC which was with platelet count a 496996, BMP was with BUN of 25, creatinine 1.32, blood sugar 135, UA was normal, his head and neck CTA documented a small old infarct of the left thalamus without evidence of any intracranial aneurysm or obstruction, but partially visualized ascending thoracic aortic aneurysm was noted. He is taking indomethacin 50mg twice a day, lisinopril 10mg at night, metformin 1000mg daily, metoprolol daily and sildenafil with Depo testosterone. His CTA of the chest as documented fusiform 4.4cm ascending thoracic aortic aneurysm with cholelithiasis. Head and neck CTA has documented less than 10% stenosis of the right carotid bulb relatively normal distal artery lumen and small old infarct in the left thalamus but no acute process and as mentioned before partially visualized ascending thoracic aortic aneurysm was noted. Echocardiogram revealed mildly enlarged left ventricular chamber with systolic function estimated at 55 to 60%, moderate concentric left ventricular wall thickness, and diastolic function was notedly abnormal, left atrial chamber dimension was moderately enlarged, though the right atrial chamber dimension was only mildly enlarged, he has aortic valve bicuspid with severe aortic valve sclerosis with severe aortic valve stenosis with peak velocity of 456centimeters/second and mean gradient of 49mmHg and aortic valve area of only 0.8 cm2 there was a trace aortic valve regurgitation mitral valve regurgitation and tricuspid valve regurgitation along with the mild pulmonary hypertension and arterial systolic pressure of 42 in the pulmonary arteries a thoracic aortic root was noted which was 3.9cm with proximal ascending aorta dilatation of mild degree that is 4.4cm. Has been seen by the proposal lead writer who has stopped his metoprolol because of intermittent block and suggested to be transferred to the [facility] [place] either to [facility] her [facility] for the further care of the aortic valve Review of Systems Review of Systems: All systems reviewed & are unremarkable except as noted in HPI and below [facility] Past Medical History Medical History Gout Obstructive sleep apnea on CPAP (~2014) Perirectal abscess History of diverticulosis Male erectile dysfunction, unspecified Umbilical hernia without obstruction or gangrene Testicular hypofunction Essential (primary) hypertension Type 2 diabetes mellitus without complications Gastro-esophageal reflux disease without esophagitis Insomnia, unspecified Surgical History Surgical History History of repair of left rotator cuff (~2014) History of repair of right rotator cuff (~2012) Family History Family History Mother Breast cancer Esophageal cancer Cerebrovascular accident Diabetes mellitus Heart disease Age older than 80 years Father , Age 75 Depression Diabetes mellitus Sibling Cerebrovascular accident 1 sister Diabetes mellitus Multiple siblings Other Colon polyp Hypertension Social History Social History Smoking status: Never smoker Second hand tobacco smoke exposure: No Alcohol intake: former Alcohol use details: Extremely rare alcohol use Substance use: never Substance use type: does not use Do You Feel Safe in your Home?: Yes Lack of Transportation: No Lack of Food: Never True Current Housing: I Have Housing Concerned About Future Housing: No Difficulty Paying Gas/Electric Bills: No Difficulty Paying for Meds: No Currently Unemployed: No Education: Decline to Answer Difficulty w/ Childcare or Family Care: No Living arrangements: with family Additional living arrangements comments: He lives with his of 25 years. He has 3 step children and no biologic children. 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 Gender identity (if verbalized by the patient): Male Sexual Orientation (if Verbalized by the Patient): Straight or Heterosexual Spiritual care concerns: No Agree to blood products: Yes Meds Home Medications and Allergies Home Medications ?Medication ?Instructions ?Recorded ?Confirmed ?Type indomethacin 50 mg capsule 50 mg PO BID PRN Gout #180 caps 04/18/24 01/27/25 Rx metformin 500 mg tablet,extended 1,000 mg (2 x 500 mg) PO DAILY 04/20/24 01/27/25 Rx release 24 hr #180 tabs lisinopril 10 mg tablet 10 mg PO QHS #90 tabs 04/25/24 01/27/25 Rx sildenafil 100 mg tablet 100 mg PO DAILY PRN sexual 05/31/24 01/27/25 Rx activity #30 tabs testosterone cypionate 200 mg/mL 300 mg (1.5 mL) IM .every 2 weeks 10/17/24 01/27/25 Rx intramuscular oil #12 mL (Depo-Testosterone) lorazepam 1 mg tablet 1 mg PO QHS PRN sleep #30 tabs 11/01/24 01/27/25 Rx syringe with needle 3 mL 22 gauge #10 ea 11/17/24 01/27/25 Rx x 1 metoprolol succinate 25 mg See Rx Instructions .Route 12/07/24 01/27/25 Rx tablet,extended release 24 hr .COMPLEX #45 tabs Allergies Allergy/AdvReac Type Severity Reaction Status Date / Time No Known Allergies Allergy Verified 01/27/25 18:11 Vital Signs Vital Signs - 24 hr 01/28/25 16:00 01/28/25 18:37 01/28/25 20:00 Temperature 36.8 C Pulse Rate 73 71 81 Respiratory Rate 18 Blood Pressure 137/74 Pulse Oximetry 98 Oxygen Delivery 01/28/25 21:15 01/28/25 22:51 01/29/25 00:00 Temperature 36.7 C Pulse Rate 78 82 74 Respiratory Rate 18 Blood Pressure 130/83 Pulse Oximetry 95 93 Oxygen Delivery Autopap 01/29/25 03:52 01/29/25 04:00 01/29/25 04:37 Temperature 36.6 C Pulse Rate 82 73 60 Respiratory Rate 18 Blood Pressure 122/64 Pulse Oximetry 93 97 Oxygen Delivery Autopap 01/29/25 08:20 01/29/25 08:20 Temperature Pulse Rate 77 Respiratory Rate Blood Pressure Pulse Oximetry Oxygen Delivery Room Air Exam Narrative: exam revealed him to be awake alert , head normocephalic with no bruit ear nose throat examination normal Wall, neck supple with no bruit, heart regular with murmur, lungs clear to auscultation with no crepitations or or rhonchi, abdomen soft nontender, normal bowel sounds, neurologically he is cachexia PN [place] numbness on the right side of his body his speech is not dysphasic not dysarthric not dysphonic, pupils round regular feels the vision full in all 4 quadrants, extraocular movements are full with no nystagmus, facial sensation intact face symmetrical tongue midline with no fasciculation uvula midline motor examination revealed him to have no drift or 1 side or other side reflexes are symmetrical plantars are downgoing sensory exam with the subjective complaints of numbness on the right side. And subtle deficit on double simultaneous stimulation. Results Labs 01/28/25 05:30 01/28/25 05:30
[2025-01-29 17:33] LABS: Glucose Point of Care 87 mg/dl (65-105)
[2025-01-29] MEDS: LORazepam (*CRX) 1 MG TABLET PO (21:24)
[2025-01-29] MEDS: lisinopriL 10 MG TABLET PO (21:24)
[2025-01-30] VITALS (10 sets, daily range): BP systolic 129–141; BP diastolic 76–86; PULSE 67–89; RESP 18–20; TEMP 36.3–36.7; O2SAT 97–100
--- NOTE | 2025-01-30 07:59 | PM.PNCARD ---
Progress Note: A&P Assessment and Plan (1) Acute CVA (cerebrovascular accident): Code(s): I63.9 - Cerebral infarction, unspecified Status: Acute Assessment and Plan: CTA neck/brain shows <10% right carotid bulb stenosis. MRI brain shows acute left thalamus infarct. Started on aspirin, plavix, lipitor. Neurology consulted. (2) Second degree heart block: Code(s): I44.1 - Atrioventricular block, second degree Status: Acute Assessment and Plan: Probably contributed by Metoprolol which his last dose was 01/26/25 at 4:30 pm. Intermittent type II block on 01/27/25 around 6-8 pm. Monitor on telemetry and no recurrence of heart block. Stopped Metoprolol. If resolves during hospitalization, will need event monitor upon discharge. (3) Bicuspid aortic valve: Code(s): Q23.1 - Congenital insufficiency of aortic valve Status: Acute (4) Aortic stenosis: Code(s): I35.0 - Nonrheumatic aortic (valve) stenosis Status: Acute Assessment and Plan: Symptomatic aortic stenosis with more recent [place], fatigue, and syncopal episode a week ago. 01/28/25 Echo: EF 55-60%, mod LVH, diastolic dysfunction (E/e' 10), mod LAE, mild RAFA, bicuspid aortic valve, severe (RICK 0.8 cm2, mean gradient 49 mmHg, peak velocity 4.5 m/s), trace AI/TR, RVSP 42 mmHg, aortic root 3.9 cm, prox ascending aorta 4.4 cm. Discuss at length with patient and his about management of symptomatic to have preop workup including LHC and ELY, but don't know if he would have valve replacement during this hospitalization or wait given the acute stroke. They are agreeable to be transferred to [facility] and to discuss with heart team there along with neurologist about the optimal timing for aortic valve replacement. We would not want to perform the preop workup here and find out he would not have AVR for 6 months, in which case he may need those procedures repeated. Tried to transfer patient yesterday but [facility] was at capacity and not taking transfers. Called this morning, and he was accepted by CT surgeon, Dr. Peña. (5) Ascending aortic aneurysm: Onset Date: 12/2023 Code(s): I71.21 - Aneurysm of the ascending aorta, without rupture Status: Acute Assessment and Plan: Stable at 4.4 cm. Was on Metoprolol for this to decrease shear stress. (6) Essential (primary) hypertension: Code(s): I10 - Essential (primary) hypertension Status: Acute Assessment and Plan: Stable. Subjective Date/time seen: 01/30/25 07:59 Interval history: Reports mild residual tingling in RUE. No chest pain, sob, or dizziness. Exam Const: General: cooperative, healthy appearing and comfortable Orientation/consciousness: oriented to person, oriented to place and oriented to time Resp: Auscultation: clear to auscultation bilaterally, no crackles, no rales, no rhonchi and no wheezes Cardio: Rate: regular rate Rhythm: regular rhythm Heart sounds: Murmur heart sound present (IV/ systolic murmur right ICS) Peripheral pulses: dorsalis pedis present Neuro: General: oriented to person, oriented to place and oriented to time Extrem: Right lower extremity: no edema Left lower extremity: no edema Objective Data Vital Signs Vital Signs: Vital Signs - 24 hr 01/29/25 08:20 01/29/25 08:20 01/29/25 12:00 Temperature Pulse Rate 77 76 Respiratory Rate Blood Pressure Pulse Oximetry Oxygen Delivery Room Air 01/29/25 14:00 01/29/25 16:00 01/29/25 20:00 Temperature 97.5 F L Pulse Rate 72 70 Respiratory Rate 16 Blood Pressure 131/76 Pulse Oximetry 98 Oxygen Delivery Room Air 01/29/25 20:00 01/29/25 21:33 01/29/25 22:37 Temperature 97.4 F L Pulse Rate 80 81 68 Respiratory Rate 20 Blood Pressure 133/83 Pulse Oximetry 98 96 Oxygen Delivery Autopap 01/30/25 00:00 01/30/25 02:51 01/30/25 04:00 Temperature Pulse Rate 76 89 67 Respiratory Rate Blood Pressure Pulse Oximetry Oxygen Delivery Autopap 01/30/25 06:00 Temperature 97.3 F L Pulse Rate 74 Respiratory Rate 20 Blood Pressure 129/76 Pulse Oximetry 100 Oxygen Delivery Intake/Output Intake/Output: Intake & Output 01/27/25 01/28/25 01/29/25 01/30/25 23:59 23:59 23:59 23:59 Intake Total 763 040 7659 300 Balance 584 768 4151 300 Meds/Results Medications: Active Medications Generic Name Dose Route Start Last Admin Trade Name Barronq PRN Reason Stop Dose Admin Aspirin 81 mg 01/28/25 09:00 01/29/25 08:30 Aspirin 81 Mg Enteric Tablet PO 81 mg QAM PIETRO Administration Atorvastatin Calcium 40 mg 01/28/25 09:00 01/29/25 08:30 Atorvastatin 40 Mg Tablet PO 40 mg DAILY PIETRO Administration Clopidogrel Bisulfate 75 mg 01/28/25 09:00 01/29/25 08:30 Clopidogrel Bisulfate 75 Mg Tablet PO 75 mg QAM PIETRO Administration Dextrose 12.5 gm 01/27/25 19:24 Dextrose 50% 25 Gm/50 Ml Syringe IV PUSH PRN PRN Hypoglycemia Protocol Glucagon 1 mg 01/27/25 19:24 Glucagon For Inj 1 Mg Vial IM PRN PRN Hypoglycemia Protocol Glucose 15 gm 01/27/25 19:24 Glucose Oral Gel 15 Gm Of Glucse In 37.5 Gm Tube PO PRN PRN Hypoglycemia Protocol Dextrose 1,000 mls @ 100 mls/hr 01/27/25 19:24 Dextrose 5% 1,000 Ml IVPB PRN PRN Hypoglycemia Protocol Insulin Aspart 2 - 5 units 01/28/25 08:00 01/29/25 17:45 Insulin Aspart (*Bkc) 100 Units/Ml SUB-Q Not Given [facility] Protocol Lisinopril 10 mg 01/27/25 21:00 01/29/25 21:24 Lisinopril 10 Mg Tablet PO 10 mg QHS PIETRO Administration Lorazepam 1 mg 01/27/25 19:25 01/29/25 21:24 Lorazepam (*Crx) 1 Mg Tablet PO 1 mg QHS PRN Administration sleep Perflutren Lipid Microsphere 0 ml 01/27/25 19:23 Perflutren Lipid Microspheres 1.5 Ml Vial Diluted To 10 Ml Total Volume IV PUSH 01/30/25 19:23 ONCE PRN adequate visualization Protocol Radiology Results: ITS Impressions Head/Neck CTA 01/27/25 13:15 IMPRESSION: 1. <10% stenosis of the right carotid bulb relative to normal distal artery lumen diameter (NASCET criteria). 2. 0% stenosis of the left carotid bulb relative to normal distal artery lumen diameter. 3. 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 No acute intracranial process. 4. Unremarkable cerebral CT angiogram with no hemodynamically significant stenosis, aneurysm or thrombosis. 5. Partially visualized ascending thoracic aortic aneurysm. Brain MRI 01/28/25 11:43 IMPRESSION: 1. Acute left thalamic infarct. ADDENDUM: 01/28/25 1302 CORRECTION: Incorrect contrast dosage and agent is noted in the technique section. The study was performed without and with 20 mL ProHance intravenous contrast. Labs Labs: Laboratory Results - last 24 hr 01/29/25 01/29/25 01/29/25 08:45 13:26 17:28 POC Capillary Glucose 126 H 131 H 87
[2025-01-30] MEDS: ATORVASTATIN 40 MG TABLET PO (08:52)
[2025-01-30] MEDS: ASPIRIN 81 MG ENTERIC TABLET PO (08:52)
[2025-01-30] MEDS: CLOPIDOGREL BISULFATE 75 MG TABLET PO (08:53)
[2025-01-30 09:06] LABS: Glucose Point of Care 154 mg/dl (65-105)
--- NOTE | 2025-01-30 09:48 | PM.IMPN ---
Progress Note: A&P Assessment and Plan (1) Acute CVA (cerebrovascular accident): Code(s): I63.9 - Cerebral infarction, unspecified Status: Acute Assessment and Plan: New deficits of right-sided numbness starting on 01/27 at 8:30 p.m. Last known well at 3:00 p.m. on 01/26. - not candidate for thrombolytics due to timeframe - CTA head/neck 1. <10% stenosis of the right carotid bulb relative to normal distal artery lumen diameter (NASCET criteria). 2. 0% stenosis of the left carotid bulb relative to normal distal artery lumen diameter. 3. 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 No acute intracranial process. 4. Unremarkable cerebral CT angiogram with no hemodynamically significant stenosis, aneurysm or thrombosis. 5. Partially visualized ascending thoracic aortic aneurysm. neurology consulted echo w/Bubble ordered EF 55-60%, no PFO A1C 6.4 Atorvastatin 40 mg PO, Plavix 75 mg PO, ASA 81 mg MRI brain shows acute left thalamus infarct. (2) Right sided numbness: Code(s): R20.0 - Anesthesia of skin Status: Acute Assessment and Plan: Stable see above PT OT (3) Aortic stenosis: Code(s): I35.0 - Nonrheumatic aortic (valve) stenosis Status: Acute Assessment and Plan: DR Mayer is following Symptomatic aortic stenosis with more recent COPELAND, fatigue, and syncopal episode a week ago. 01/28/25 Echo: EF 55-60%, mod LVH, diastolic dysfunction (E/e' 10), mod LAE, mild RAFA, bicuspid aortic valve, severe (RICK 0.8 cm2, mean gradient 49 mmHg, peak velocity 4.5 m/s), trace AI/TR, RVSP 42 mmHg, aortic root 3.9 cm, prox ascending aorta 4.4 cm. They are agreeable to be transferred to [facility] and to discuss with heart team there along with neurologist about the optimal timing for aortic valve replacement. We would not want to perform the preop workup here and find out he would not have AVR for 6 months, in which case he may need those procedures repeated. Awaiting transfer (4) Second degree heart block: Code(s): I44.1 - Atrioventricular block, second degree Status: Acute Assessment and Plan: - new 2nd degree heart block seen on telemetry, will attempt to capture via EKG -cardiology consulted- following, notes reviewed: Probably contributed by Metoprolol which his last dose was 01/26/25 at 4:30 pm. Intermittent type II block on 01/27/25 around 6-8 pm. Monitor on telemetry. Stop Metoprolol. Per Cardiology If resolves during hospitalization, will need event monitor upon discharge (5) Type 2 diabetes mellitus: Qualifiers: Diabetes mellitus complication status: without complication Diabetes mellitus assisted insulin use: without computer terminal operator use Qualified Code(s): E11.9 - Type 2 diabetes mellitus without complications Code(s): E11.9 - Type 2 diabetes mellitus without complications Status: Acute Assessment and Plan: A1c 6.4 - hypoglycemia protocol - POC blood glucose ACHS - home medication: Hold metformin - correct regimen ordered - low dose TIDWM, based off TDD - A1C 6.7% in 2022, (6) Essential (primary) hypertension: Code(s): I10 - Essential (primary) hypertension Status: Acute Assessment and Plan: - chronic, currently 136/88 - continue home medications: Lisinopril 10 mg daily - monitor (7) Obstructive sleep apnea on CPAP: Onset Date: ~2014 Code(s): G47.33 - Obstructive sleep apnea (adult) (pediatric); Z99.89 - Dependence on other enabling machines and devices Status: Acute Assessment and Plan: - continue home CPAP (8) Ascending aortic aneurysm: Onset Date: 12/2023 Code(s): I71.21 - Aneurysm of the ascending aorta, without rupture Status: Acute Assessment and Plan: Stable at 4.4 cm Cardiology on board Was on Metoprolol for this to decrease shear stress- but metoprolol stopped monitor bp for now 111/75 this am Plan Diet: Diabetic GI Prophylaxis: Not currently indicated DVT Prophylaxis: SCDs Lines: Peripheral Code Status: Full code Time Spent With Patient Time with patient: Greater than 35 minutes Subjective Date/time seen: 01/30/25 09:48 Interval history: 59 y/o M presents here with headache and focal numbness with PMH of ocular migraines, gout, LON, hypertension, diabetes, GERD, insomnia, and testicular hypofunction. Patient is waiting for a transfer to [facility] for evaluation a aortic valve repair, patient up walking around the room complains of slight numbness to right on Review of Systems Review of Systems: All systems reviewed & are unremarkable except as noted in HPI and below Exam Narrative: General: well appearing, appears stated age. HEENT: normocephalic, atraumatic. Mucous membranes moist. EOMI, PERRLA, bilateral sclera anicteric, no conjunctival injection. Neck supple without JVD, lymphadenopathy, or bruit. Respiratory: clear to ascultation bilaterally. No rales/rhonic/wheezes. Cardiovascular: Regular rate and rhythm, normal S1-S2 upon ascultation. No murmurs, rubs, or clicks. PMI is nondisplaced, capillary refill less than 3 second. Abdomen: Soft, round, no pulsatile masses, nondistended and nontender. No rebound, no guarding. No CVA tenderness, no hepatosplenomegaly. Bowel sounds present to all four quadrants. No high pitch or tinkling sounds, resonant to percussion. Extremities: No cyanosis, clubbing, or edema present. Pulses are palpable 2/2. Active ROM to all four extremities. Neuro: Alert and orientated x 4. PERRLA. Cranial nerves 2-12 intact without focal deficit. Skin: Warm, dry, and intact, without rash, erythema, or lesion. Psych: pleasant, cooperative, normal speech, normal affect, no hallucinations, no dysarthia Objective Data Vital Signs Vital Signs: Vital Signs - 24 hr 01/29/25 12:00 01/29/25 14:00 01/29/25 16:00 Temperature 97.5 F L Pulse Rate 76 72 70 Respiratory Rate 16 Blood Pressure 131/76 Pulse Oximetry 98 Oxygen Delivery 01/29/25 20:00 01/29/25 20:00 01/29/25 21:33 Temperature 97.4 F L Pulse Rate 80 81 Respiratory Rate 20 Blood Pressure 133/83 Pulse Oximetry 98 Oxygen Delivery Room Air 01/29/25 22:37 01/30/25 00:00 01/30/25 02:51 Temperature Pulse Rate 68 76 89 Respiratory Rate Blood Pressure Pulse Oximetry 96 Oxygen Delivery Autopap Autopap 01/30/25 04:00 01/30/25 06:00 01/30/25 09:00 Temperature 97.3 F L Pulse Rate 67 74 Respiratory Rate 20 Blood Pressure 129/76 Pulse Oximetry 100 Oxygen Delivery Room Air 01/30/25 09:00 Temperature Pulse Rate 78 Respiratory Rate Blood Pressure Pulse Oximetry Oxygen Delivery Intake/Output Intake/Output: Intake & Output 01/27/25 01/28/25 01/29/25 01/30/25 23:59 23:59 23:59 23:59 Intake Total 773 832 7289 300 Balance 012 053 8758 300 Meds/Results Medications: Active Medications Generic Name Dose Route Start Last Admin Trade Name Freq PRN Reason Stop Dose Admin Aspirin 81 mg 01/28/25 09:00 01/30/25 08:52 Aspirin 81 Mg Enteric Tablet PO 81 mg QAM PIETRO Administration Atorvastatin Calcium 40 mg 01/28/25 09:00 01/30/25 08:52 Atorvastatin 40 Mg Tablet PO 40 mg DAILY PIETRO Administration Clopidogrel Bisulfate 75 mg 01/28/25 09:00 01/30/25 08:53 Clopidogrel Bisulfate 75 Mg Tablet PO 75 mg QAM PIETRO Administration Dextrose 12.5 gm 01/27/25 19:24 Dextrose 50% 25 Gm/50 Ml Syringe IV PUSH PRN PRN Hypoglycemia Protocol Glucagon 1 mg 01/27/25 19:24 Glucagon For Inj 1 Mg Vial IM PRN PRN Hypoglycemia Protocol Glucose 15 gm 01/27/25 19:24 Glucose Oral Gel 15 Gm Of Glucse In 37.5 Gm Tube PO PRN PRN Hypoglycemia Protocol Dextrose 1,000 mls @ 100 mls/hr 01/27/25 19:24 Dextrose 5% 1,000 Ml IVPB PRN PRN Hypoglycemia Protocol Insulin Aspart 2 - 5 units 01/28/25 08:00 01/30/25 09:01 Insulin Aspart (*Bkc) 100 Units/Ml SUB-Q Not Given TIDWM PIETRO Protocol Lisinopril 10 mg 01/27/25 21:00 01/29/25 21:24 Lisinopril 10 Mg Tablet PO 10 mg QHS PIETRO Administration Lorazepam 1 mg 01/27/25 19:25 01/29/25 21:24 Lorazepam (*Crx) 1 Mg Tablet PO 1 mg QHS PRN Administration sleep Perflutren Lipid Microsphere 0 ml 01/27/25 19:23 Perflutren Lipid Microspheres 1.5 Ml Vial Diluted To 10 Ml Total Volume IV PUSH 01/30/25 19:23 ONCE PRN adequate visualization Protocol Radiology Results: ITS Impressions Head/Neck CTA 01/27/25 13:15 IMPRESSION: 1. <10% stenosis of the right carotid bulb relative to normal distal artery lumen diameter (NASCET criteria). 2. 0% stenosis of the left carotid bulb relative to normal distal artery lumen diameter. 3. 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 No acute intracranial process. 4. Unremarkable cerebral CT angiogram with no hemodynamically significant stenosis, aneurysm or thrombosis. 5. Partially visualized ascending thoracic aortic aneurysm. Brain MRI 01/28/25 11:43 IMPRESSION: 1. Acute left thalamic infarct. ADDENDUM: 01/28/25 1302 CORRECTION: Incorrect contrast dosage and agent is noted in the technique section. The study was performed without and with 20 mL ProHance intravenous contrast. Labs Labs: Laboratory Results - last 24 hr 01/29/25 01/29/25 01/30/25 13:26 17:28 08:55 POC Capillary Glucose 131 H 87 154 H Quality VTE Prophylaxis VTE prophylaxis: mechanical ordered
[2025-01-30 11:53] LABS: Glucose Point of Care 170 mg/dl (65-105)
[2025-01-30 17:08] LABS: Glucose Point of Care 144 mg/dl (65-105)
[2025-01-30] MEDS: LORazepam (*CRX) 1 MG TABLET PO (18:27)
[2025-01-30] MEDS: lisinopriL 10 MG TABLET PO (20:39)
[2025-01-31 03:07] LABS: Glucose Point of Care 164 mg/dl (65-105)
--- NOTE | 2025-02-03 18:16 | P.TS_ITS ---
Transfer Discharge Sum: Prov Provider Date of admission: 01/27/25 18:23 Primary care physician: Siddharth Corona MD Admitting clinician: Patrick Morales MD Consults: 01/27/25 Consult to Physician Routine Comment: Consulting Provider: Dani Mayer Reason for consultation: new onset symptomatic 2nd D HB Has provider been notified: Yes Consult to Physician Routine Comment: Consulting Provider: Abhi Santo Reason for consultation: CVA Has provider been notified: Yes DS: Admitting Diagnosis Discharge Date 01/30/25 Admitting Diagnosis Acute CVA DS: Discharge Diagnosis Discharge Diagnosis (1) Acute CVA (cerebrovascular accident): Code(s): I63.9 - Cerebral infarction, unspecified Status: Acute Assessment and Plan: New deficits of right-sided numbness starting on 01/27 at 8:30 p.m. Last known well at 3:00 p.m. on 01/26. - not candidate for thrombolytics due to timeframe - CTA head/neck 1. <10% stenosis of the right carotid bulb relative to normal distal artery lumen diameter (NASCET criteria). 2. 0% stenosis of the left carotid bulb relative to normal distal artery lumen diameter. 3. 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 No acute intracranial process. 4. Unremarkable cerebral CT angiogram with no hemodynamically significant stenosis, aneurysm or thrombosis. 5. Partially visualized ascending thoracic aortic aneurysm. neurology consulted echo w/Bubble ordered EF 55-60%, no PFO A1C 6.4 Atorvastatin 40 mg PO, Plavix 75 mg PO, ASA 81 mg MRI brain shows acute left thalamus infarct. (2) Right sided numbness: Code(s): R20.0 - Anesthesia of skin Status: Acute Assessment and Plan: Stable see above PT OT (3) Aortic stenosis: Code(s): I35.0 - Nonrheumatic aortic (valve) stenosis Status: Acute Assessment and Plan: DR Mayer is following Symptomatic aortic stenosis with more recent COPELAND, fatigue, and syncopal episode a week ago. 01/28/25 Echo: EF 55-60%, mod LVH, diastolic dysfunction (E/e' 10), mod LAE, mild RAFA, bicuspid aortic valve, severe (RICK 0.8 cm2, mean gradient 49 mmHg, peak velocity 4.5 m/s), trace AI/TR, RVSP 42 mmHg, aortic root 3.9 cm, prox ascending aorta 4.4 cm. They are agreeable to be transferred to [facility] and to discuss with heart team there along with neurologist about the optimal timing for aortic valve replacement. We would not want to perform the preop workup here and find out he would not have AVR for 6 months, in which case he may need those procedures repeated. Awaiting transfer to tertiary hospital (4) Second degree heart block: Code(s): I44.1 - Atrioventricular block, second degree Status: Acute Assessment and Plan: - new 2nd degree heart block seen on telemetry, will attempt to capture via EKG -cardiology consulted- following, notes reviewed: Probably contributed by Metoprolol which his last dose was 01/26/25 at 4:30 pm. Intermittent type II block on 01/27/25 around 6-8 pm. Monitor on telemetry. Stop Metoprolol. Per Cardiology If resolves during hospitalization, will need event monitor upon discharge (5) Type 2 diabetes mellitus: Qualifiers: Diabetes mellitus complication status: without complication Diabetes mellitus detention insulin use: without longwall foreman use Qualified Code(s): E11.9 - Type 2 diabetes mellitus without complications Code(s): E11.9 - Type 2 diabetes mellitus without complications Status: Acute Assessment and Plan: A1c 6.4 - hypoglycemia protocol - POC blood glucose ACHS - home medication: Hold metformin - correct regimen ordered - low dose TIDWM, based off TDD - A1C 6.7% in 2022, (6) Essential (primary) hypertension: Code(s): I10 - Essential (primary) hypertension Status: Acute Assessment and Plan: - chronic, currently 136/88 - continue home medications: Lisinopril 10 mg daily - monitor (7) Obstructive sleep apnea on CPAP: Onset Date: ~2014 Code(s): G47.33 - Obstructive sleep apnea (adult) (pediatric); Z99.89 - Dependence on other enabling machines and devices Status: Acute Assessment and Plan: - continue home CPAP (8) Ascending aortic aneurysm: Onset Date: 12/2023 Code(s): I71.21 - Aneurysm of the ascending aorta, without rupture Status: Acute Assessment and Plan: Stable at 4.4 cm Cardiology on board Was on Metoprolol for this to decrease shear stress- but metoprolol stopped monitor bp for now 111/75 this am Plan Diet: Diabetic GI Prophylaxis: Not currently indicated DVT Prophylaxis: SCDs Lines: Peripheral Code Status: Full code Transfer Discharge Sum: Med Medications Active and Home Medications: Home Medications indomethacin 50 mg capsule 50 mg PO BID PRN Gout #180 caps 04/18/24 [Rx Confirmed 01/27/25] metformin 500 mg tablet,extended release 24 hr 1,000 mg (2 x 500 mg) PO DAILY #180 tabs 04/20/24 [Rx Confirmed 01/27/25] lisinopril 10 mg tablet 10 mg PO QHS #90 tabs 04/25/24 [Rx Confirmed 01/27/25] sildenafil 100 mg tablet 100 mg PO DAILY PRN sexual activity #30 tabs 05/31/24 [Rx Confirmed 01/27/25] testosterone cypionate 200 mg/mL intramuscular oil (Depo-Testosterone) 300 mg (1.5 mL) IM .every 2 weeks #12 mL 10/17/24 [Rx Confirmed 01/27/25] lorazepam 1 mg tablet 1 mg PO QHS PRN sleep #30 tabs 11/01/24 [Rx Confirmed 01/27/25] syringe with needle 3 mL 22 gauge x 1 #10 ea 11/17/24 [Rx Confirmed 01/27/25] metoprolol succinate 25 mg tablet,extended release 24 hr See Rx Instructions .Route .COMPLEX #45 tabs 12/07/24 [Rx Confirmed 01/27/25] Transfer Discharge Sum: Hosp Hospital Course Hospital course: George Barriga is a 59 year old male presents here with headache and focal numbness with PMH of ocular migraines, gout, LON, hypertension, diabetes, GERD, insomnia, and testicular hypofunction. The patient presents here from home for further evaluation of headache and right-sided numbness. He reports last known well at 3 p.m. yesterday (01/26) when he got off work. Patient developed an ocular migraine at around 4-5 p.m. He initially experienced symptoms consistent with his typical migraines. However, he developed right sided numbness around 8:30 p.m. stating that he felt off and he had right arm numbness. Then developed right leg and right facial numbness late last night. Patient woke this morning and symptoms had not resolved. He initially sought care at his PCP, but was directed to the ER for evaluation. Focal numbness currently effecting the right side of his face, right upper extremity, and right lower extremity. Patient CT showed it to old small infarct. MRI shows a new left cell thalamus infarct the patient was started statin, Plavix and aspirin. Patient's echo with bubble study showed no PF of 0 EF 55-60%. Patient was also found to have nonrheumatic aortic valve stenosis with plan to transfer to [facility] for workup for aortic valve replacement. Patient stable and ready for transfer. Time Spent with Patient Time attestation: Total time spent providing and/or coordinating transfer services: Total time spent: Greater than 30 minutes Exam Narrative: General: well appearing, appears stated age. HEENT: normocephalic, atraumatic. Mucous membranes moist. EOMI, PERRLA, bilateral sclera anicteric, no conjunctival injection. Neck supple without JVD, lymphadenopathy, or bruit. Respiratory: clear to ascultation bilaterally. No rales/rhonic/wheezes. Cardiovascular: Regular rate and rhythm, normal S1-S2 upon ascultation. No murmurs, rubs, or clicks. PMI is nondisplaced, capillary refill less than 3 second. Abdomen: Soft, round, no pulsatile masses, nondistended and nontender. No rebound, no guarding. No CVA tenderness, no hepatosplenomegaly. Bowel sounds present to all four quadrants. No high pitch or tinkling sounds, resonant to percussion. Extremities: No cyanosis, clubbing, or edema present. Pulses are palpable 2/2. Active ROM to all four extremities. Neuro: Alert and orientated x 4. PERRLA. Cranial nerves 2-12 intact without focal deficit. Skin: Warm, dry, and intact, without rash, erythema, or lesion. Psych: pleasant, cooperative, normal speech, normal affect, no hallucinations, no dysarthia
== END 2025-01-30 23:33 | disposition short-term general hospital (02) ==
LOC: ANHED 16:17 → ANH3MED 18:27
PROVIDERS: Student in an Organized Health Care Education/Training Program; Admitting Provider Internal Medicine; Emergency Provider Emergency Medicine; PCP Family Medicine Adolescent Medicine; Visit Provider Internal Medicine
DX: I63.9 Cerebral infarction, unspecified (principal); R20.0 Anesthesia of skin; G83.21 Monoplegia of upper limb affecting right dominant side; R29.702 NIHSS score 2; I44.1 Atrioventricular block, second degree; Q23.81 Bicuspid aortic valve; I35.0 Nonrheumatic aortic (valve) stenosis; I71.21 Aneurysm of the ascending aorta, without rupture; E11.9 Type 2 diabetes mellitus without complications; I10 Essential (primary) hypertension; G47.33 Obstructive sleep apnea (adult) (pediatric); Z99.89 Dependence on other enabling machines and devices; G47.00 Insomnia, unspecified; G43.809 Other migraine, not intractable, without status migrainosus; K21.9 Gastro-esophageal reflux disease without esophagitis; M10.00 Idiopathic gout, unspecified site; E29.1 Testicular hypofunction; Z79.84 Long term (current) use of oral hypoglycemic drugs; Z79.890 Hormone replacement therapy; Z79.899 Other long term (current) drug therapy; Z98.890 Other specified postprocedural states
CPT/HCPCS: 36415; 70496; 70498; 70553; 80048; 80053; 80061; 81001; 82948; 83036; 83690; 83735; 83880; 84100; 84484; 85025; 85610; 85730; 93005; 93306; 99285; A9270; A9579; G0378; Q9967

== ENCOUNTER 2025-06-15 08:45 | Outpatient (RCR) | payer BC, SELFPAY ==
[2025-03-24 08:57] VITALS: PULSE 73
== END 2025-07-04 11:15 | disposition home or self-care (01) ==
LOC: ANHCPREHAB 08:45
PROVIDERS: PCP Family Medicine Adolescent Medicine; Visit Provider Internal Medicine Cardiovascular Disease
DX: Z95.2 Presence of prosthetic heart valve (principal); Z98.61 Coronary angioplasty status
CPT/HCPCS: 93798

== ENCOUNTER 2025-09-12 14:30 | Outpatient (RCR) | payer BC, SELFPAY ==
--- NOTE | 2025-06-26 11:01 | OPREHPOC ---
Outpatient Therapy Plan of Care This is a Multidisciplinary Plan of Care that may contain components documented by all disciplines (PT, OT, and ST.) PT Problem 1 PT Problem #1 Knowledge Deficit PT Goal 1 Goal / Goal Update *independent with HEP Target Visit 10 PT Problem 2 PT Problem #2 Impaired Strength PT Goal 1 Goal / Goal Update increase R LE strength to improve mobility and balance skills: 1* R ankle strength 4+/5 with good control of ankle circles in sitting 2* single leg standing x 10 seconds with good stability 3* pt report activity tolerance with standing/ walking/home activities of 4 hours Target Visit 10 PT Problem 3 PT Problem #3 Impaired Functional Mobility PT Goal 1 Goal / Goal Update improve balance and mobility skills, to increase activity level 1* Park balance score of 56/56 2* 2 minute walking test distance of 450' 3* 5 reps sit/stand without use of UE x 20 seconds 4* up/down 12 steps without hand railing, alternate step pattern 5* pt able to pick item up off floor, independent 6* pt able to perform bilateral UE 20# box lift from waist/floor height x 3 reps with good mechanics and balance 5* Target Visit 10
--- NOTE | 2025-06-26 11:01 | PTOPEVAL1 ---
Assessment and note entered by Amanda Hill, PT Evaluation Information Assessment Status Evaluation ICD-10 Condition Codes (PT) Difficulty Walking R26.2,Abnormalities of gait and mobility R26.9,Weakness R53.1 Other ICD-10 Condition Codes ( CVA, R weakness PT) Onset Jan 25, 2025 Subjective Information had CVA in Dec, then had CABG with stent and aneurysm repair; have completed Cardiac Rehab on June 15; returned to driving; have not had any falls, but have had loss of balance- able to catch himself; numbness in R leg and trunk; R arm not working right; R hand dominant; after 2-4 hours of activity, have to rest and lie down; get lightheaded and weak, fatigued; am depressed about how things are and the changes in my life; activity: 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 home with [place], steps with 1 hand rail to basement/garage, stay on main level of home; goal: get better, get stronger to be able to function--doing house things and somewhat back to normal; Reported Pain Level Pain Score 4: Self Report Additional Pain Score Comments numbness and pain in R leg; pain in calf from cardiac graft site Assessment PT Clinical Summary George is s/p CVA with R weakness. Prior to CVA, he was active, independent with all activities and worked at [employer]. He also had cardiac surgery and recently completed Cardiac rehab program. With the evaluation: 5 reps sit/stand time of 40 seconds without use of UE's; 2 minute walking test distance of 310'; Park balance score of 43/ 56, he had difficulty with single leg standing, tandem standing and picking something up off floor ; on stairs, requires one hand railing for alternate step pattern; decreased strength and motor control of R LE. He is also having issues with R UE---will request OT order for pt. Skilled PT services are indicated to increase LE strength, gait and balance skills, to include lifting and simulated job tasks. Education for HEP and safety with mobility. Plan of Care Interventions Gait Training,Neuro Re-education,Patient/Caregiver Education,Therapeutic Activities,Therapeutic Exercise PT Services Indicated Yes Treatment Frequency and 2x/wk for 10 visits Duration These treatments will address the objective and functional deficits as defined above. The patient will be advanced safely and appropriately in order for the patient to progress towards his/her prior level of function. Additional exercises will be introduced and as well as a comprehensive home exercise program upon discharge, if needed, ?to ensure carryover of functional gains achieved in the clinic. This treatment plan has been reviewed and agreement upon by the patient.
--- NOTE | 2025-07-04 11:14 | OTOPEVAL1 ---
Assessment and note entered by Juvenal Guzman, ACER/Trinh, CHT OT Evaluation Information Assessment Status Evaluation Diagnosis CVA with right sided weakness Onset 01/25/2025 Subjective Information Patient reports recent history of CVA in December 2024 followed by CABG with stent and aneurysm repair January 2025. He has completed cardiac rehab and has returned to driving. He reports residual deficit on the right UE/LE, reports numbness on the right side from his head to his toes. Difficulties with putting on and fastening a belt, getting his wallet out of his pocket, and tying his shoes. Assessment OT Clinical Summary Patient referred to OT with dx of CVA. He presents with residual weakness and incoordination in the (R) UE that affects his dominant UE for ADLs. Skilled OT indicated to maximize functional use of his dominant UE via therapeutic exercise, neuro re-education, and HEP instruction and progression. Plan of Care Interventions Therapeutic Exercise,Neuro Re-education, Therapeutic Activities OT Services Indicated Yes Treatment Frequency and 2x/week for 8 visits Duration These treatments will address the objective and functional deficits as defined above. The patient will be advanced safely and appropriately in order for the patient to progress towards his/her prior level of function. Additional exercises will be introduced and as well as a comprehensive home exercise program upon discharge, if needed, ?to ensure carryover of functional gains achieved in the clinic. This treatment plan has been reviewed and agreement upon by the patient.
--- NOTE | 2025-07-04 11:14 | OPREHPOC ---
Outpatient Therapy Plan of Care This is a Multidisciplinary Plan of Care that may contain components documented by all disciplines (PT, OT, and ST.) PT Problem 1 PT Problem #1 Knowledge Deficit PT Goal 1 Goal / Goal Update *independent with HEP Target Visit 10 PT Problem 2 PT Problem #2 Impaired Strength PT Goal 1 Goal / Goal Update increase R LE strength to improve mobility and balance skills: 1* R ankle strength 4+/5 with good control of ankle circles in sitting 2* single leg standing x 10 seconds with good stability 3* pt report activity tolerance with standing/ walking/home activities of 4 hours Target Visit 10 PT Problem 3 PT Problem #3 Impaired Functional Mobility PT Goal 1 Goal / Goal Update improve balance and mobility skills, to increase activity level 1* Park balance score of 56/56 2* 2 minute walking test distance of 450' 3* 5 reps sit/stand without use of UE x 20 seconds 4* up/down 12 steps without hand railing, alternate step pattern 5* pt able to pick item up off floor, independent 6* pt able to perform bilateral UE 20# box lift from waist/floor height x 3 reps with good mechanics and balance 5* Target Visit 10 OT Problem 1 OT Problem #1 Knowledge Deficit OT Goal 1 Goal / Goal Update 1. Patient to be independent with HEP. Target Visit 8 OT Problem 2 OT Problem #2 Impaired Coordination OT Goal 1 Goal / Goal Update 1. Patient to increase functional fine motor coordination for ADLs as measured by being able to complete the 9-hole peg test with the right hand in 40 seconds or less. Target Visit 8 OT Problem 3 OT Problem #3 Impaired Strength OT Goal 1 Goal / Goal Update Patient to increase gross strength of the (R) UE for ADLs as measured by: 1. Improving to 4+/5 MMT for the right shoulder 2. Improving to 5/5 MMT for the biceps. 3. Increase (R) Vending Machine Host/Hostess strength to 80 lbs. Target Visit 8
--- NOTE | 2025-08-01 09:27 | OPREHPOC ---
Outpatient Therapy Plan of Care This is a Multidisciplinary Plan of Care that may contain components documented by all disciplines (PT, OT, and ST.) PT Problem 1 PT Problem #1 Knowledge Deficit PT Goal 1 Goal / Goal Update *independent with HEP Target Visit 10 Progress Met PT Problem 2 PT Problem #2 Impaired Strength PT Goal 1 Goal / Goal Update increase R LE strength to improve mobility and balance skills: 1* R ankle strength 4+/5 with good control of ankle circles in sitting 2* single leg standing x 10 seconds with good stability 3* pt report activity tolerance with standing/ walking/home activities of 4 hours 08/01/25 1* 4/5 2* R 7 sec/L 12 sec 3* 60 minutes Target Visit 10 Progress Partially Met PT Problem 3 PT Problem #3 Impaired Functional Mobility PT Goal 1 Goal / Goal Update improve balance and mobility skills, to increase activity level 1* Park balance score of 56/56 2* 2 minute walking test distance of 450' 3* 5 reps sit/stand without use of UE x 20 seconds 4* up/down 12 steps without hand railing, alternate step pattern 5* pt able to pick item up off floor, independent 6* pt able to perform bilateral UE 20# box lift from waist/floor height x 3 reps with good mechanics and balance 08/01/25 progressing 1* Park 46/56 2* 290 feet 3* 47 sec 4* with one hand railing, alternate step pattern/ without railing, single step pattern 5* supervision 6* poor mechanics, requires CGA for optimal safety Target Visit 10 Progress Partially Met OT Problem 1 OT Problem #1 Knowledge Deficit OT Goal 1 Goal / Goal Update 1. Patient to be independent with HEP. Target Visit 8 OT Problem 2 OT Problem #2 Impaired Coordination OT Goal 1 Goal / Goal Update 1. Patient to increase functional fine motor coordination for ADLs as measured by being able to complete the 9-hole peg test with the right hand in 40 seconds or less. Target Visit 8 OT Problem 3 OT Problem #3 Impaired Strength OT Goal 1 Goal / Goal Update Patient to increase gross strength of the (R) UE for ADLs as measured by: 1. Improving to 4+/5 MMT for the right shoulder 2. Improving to 5/5 MMT for the biceps. 3. Increase (R) Medical Pathologist strength to 80 lbs. Target Visit 8
--- NOTE | 2025-08-01 09:27 | PTOPPROG ---
Assessment and note entered by Tali Ruiz, PT Evaluation Information Assessment Status Evaluation ICD-10 Condition Codes (PT) Difficulty Walking R26.2,Abnormalities of gait and mobility R26.9,Weakness R53.1 Other ICD-10 Condition Codes ( CVA, R weakness PT) Onset Jan 25, 2025 Subjective Information Pt thinks things have been getting better overall since he started therapy. He has difficulty describing certain activities, knows he avoids heavy lifting still. he reports trying to walk more. He thinks he might be able to tolerate 60 m minutes of activity before needing to rest. He reports the ability to do his stairs is improving, has to think about which leg to go up with first. He notes increased tightness in the R UE and LE. He thinks he is the best in the morning and has to take a nap everyday. Assessment PT Clinical Summary Patient's condition has made mild advancements in symptoms, mobility, strength, and overall functional tolerance to ADLs. However, some limitations are still present in endurance, balance, muscle strength, and functional lifting. The pt has also started to display increased tone in the R LE over his last several appts. Increased difficulty with gait and STS this date due to increased tone. Pt educated on the importance of informing his MD and this may slow his progress in PT. Patient would benefit from continued skilled PT services to address the above listed impairments and facilitate a return to their PLOF. Plan of Care Interventions Gait Training,Neuro Re-education,Patient/Caregiver Education,Therapeutic Activities,Therapeutic Exercise PT Services Indicated Yes Treatment Frequency and 1-2x/wk for 10 visits Duration These treatments will address the objective and functional deficits as defined above. The patient will be advanced safely and appropriately in order for the patient to progress towards his/her prior level of function. Additional exercises will be introduced and as well as a comprehensive home exercise program upon discharge, if needed, ?to ensure carryover of functional gains achieved in the clinic. This treatment plan has been reviewed and agreement upon by the patient.
--- NOTE | 2025-08-01 09:34 | PCPTNOTE ---
left message with Dr. Martinez office informing them of pt's increased tone and need for f/u with PCP or neurology
--- NOTE | 2025-08-08 11:42 | OTOPPROG ---
Assessment and note entered by Juvenal Guzman, ADAN/Trinh, CHT OT Progress Update 08/08/25 Diagnosis CVA with right sided weakness Onset 01/25/2025 Subjective Information Patient reports improvements with fastening his seat belt, getting dressed, and doing things around the house. He reports good compliance with his HEP. He states he continues to put his wallet in his left pocket due to having difficulty getting it out with the right hand on his right side. He also continues to slip on his shoes instead of tying them. Assessment OT Clinical Summary Patient referred to OT with dx of CVA. Throughout the course of therapy this month he has made progress distally in the hand, however proximally he has developed a winged scapula as well as hypertonicity. Therapy has been focusing on improved scapular mechanics and proximal strengthening as well as distal fine motor control . Continued skilled OT indicated to maximize functional use of his dominant UE via therapeutic exercise, neuro re-education, and HEP instruction and progression. Plan of Care Interventions Therapeutic Exercise,Neuro Re-education, Therapeutic Activities OT Services Indicated Yes Treatment Frequency and 2x/week for 10 visits Duration These treatments will address the objective and functional deficits as defined above. The patient will be advanced safely and appropriately in order for the patient to progress towards his/her prior level of function. Additional exercises will be introduced and as well as a comprehensive home exercise program upon discharge, if needed, ?to ensure carryover of functional gains achieved in the clinic. This treatment plan has been reviewed and agreement upon by the patient.
--- NOTE | 2025-08-08 11:43 | OPREHPOC ---
Outpatient Therapy Plan of Care This is a Multidisciplinary Plan of Care that may contain components documented by all disciplines (PT, OT, and ST.) PT Problem 1 PT Problem #1 Knowledge Deficit PT Goal 1 Goal / Goal Update *independent with HEP Target Visit 10 Progress Met PT Problem 2 PT Problem #2 Impaired Strength PT Goal 1 Goal / Goal Update increase R LE strength to improve mobility and balance skills: 1* R ankle strength 4+/5 with good control of ankle circles in sitting 2* single leg standing x 10 seconds with good stability 3* pt report activity tolerance with standing/ walking/home activities of 4 hours 08/01/25 1* 4/5 2* R 7 sec/L 12 sec 3* 60 minutes Target Visit 10 Progress Partially Met PT Problem 3 PT Problem #3 Impaired Functional Mobility PT Goal 1 Goal / Goal Update improve balance and mobility skills, to increase activity level 1* Park balance score of 56/56 2* 2 minute walking test distance of 450' 3* 5 reps sit/stand without use of UE x 20 seconds 4* up/down 12 steps without hand railing, alternate step pattern 5* pt able to pick item up off floor, independent 6* pt able to perform bilateral UE 20# box lift from waist/floor height x 3 reps with good mechanics and balance 08/01/25 progressing 1* Park 46/56 2* 290 feet 3* 47 sec 4* with one hand railing, alternate step pattern/ without railing, single step pattern 5* supervision 6* poor mechanics, requires CGA for optimal safety Target Visit 10 Progress Partially Met OT Problem 1 OT Problem #1 Knowledge Deficit OT Goal 1 Goal / Goal Update 1. Patient to be independent with HEP. ---OT POC UPDATE 08/08/25--- 1. Partially met, patient continues to require cues for form Target Visit 18 OT Problem 2 OT Problem #2 Impaired Coordination OT Goal 1 Goal / Goal Update 1. Patient to increase functional fine motor coordination for ADLs as measured by being able to complete the 9-hole peg test with the right hand in 40 seconds or less. ---OT POC UPDATE 08/08/25--- 1. Progressing, but not met, continue goal Target Visit 18 OT Problem 3 OT Problem #3 Impaired Strength OT Goal 1 Goal / Goal Update Patient to increase gross strength of the (R) UE for ADLs as measured by: 1. Improving to 4+/5 MMT for the right shoulder 2. Improving to 5/5 MMT for the biceps. 3. Increase (R) Network Solutions Architect strength to 80 lbs. ---OT POC UPDATE 08/08/25--- 1. Not met - continue to fine tune serratus strength 2. Not met - continue strengthening 3. Not assessed this date Target Visit 18
--- NOTE | 2025-08-11 09:19 | STOPEVAL1 ---
Assessment and note entered by Kelsea Link, TALENT MANAGER Evaluation Information Assessment Status Evaluation Diagnosis I69.311 Reported Pain Level Pain Score 0: Self Report Assessment ST Clinical Summary The patient is a 59 year old male referred for outpatient speech therapy services due to persistent cognitive and language deficits following a recent CVA. The patient reports his greatest concerns to be memory, concentration and coming up with words. The patient was administered the RIPA (Ross Information Processing Assessment) and portions of the [facility] Cognitive Evaluation. Results were as follows for the RIPA subtests given: Immediate Memory (22)73%, Temporal Orientation (30) 100%, Spatial Orientation (30) 100%, Problem Solving and Abstract Reasoning (28) 93%, Organization (23) 76%, Auditory Processing and Retention (23) 76% Results for the [facility] Language Evaluation subtests are as follows: Verbal Expression (Word Finding) Open Ended Questions 90%, Sentence Formation 80%, Divergent Naming 80% The patient demonstrates: Moderate deficits for sustained attention/concentration, memory/recall, thought organization/auditory processing, and word retrieval. Recommend speech services 2 week x 10 visits. Plan of Care Interventions Treatment of Language,Treatment for Cognitive Function ST Services Indicated Yes These treatments will address the objective and functional deficits as defined above. The patient will be advanced safely and appropriately in order for the patient to progress towards his/her prior level of function. Additional exercises will be introduced and as well as a comprehensive home exercise program upon discharge, if needed, ?to ensure carryover of functional gains achieved in the clinic. This treatment plan has been reviewed and agreement upon by the patient.
--- NOTE | 2025-08-11 09:20 | OPREHPOC ---
Outpatient Therapy Plan of Care This is a Multidisciplinary Plan of Care that may contain components documented by all disciplines (PT, OT, and ST.) PT Problem 1 PT Problem #1 Knowledge Deficit PT Goal 1 Goal / Goal Update *independent with HEP Target Visit 10 Progress Met PT Problem 2 PT Problem #2 Impaired Strength PT Goal 1 Goal / Goal Update increase R LE strength to improve mobility and balance skills: 1* R ankle strength 4+/5 with good control of ankle circles in sitting 2* single leg standing x 10 seconds with good stability 3* pt report activity tolerance with standing/ walking/home activities of 4 hours 08/01/25 1* 4/5 2* R 7 sec/L 12 sec 3* 60 minutes Target Visit 10 Progress Partially Met PT Problem 3 PT Problem #3 Impaired Functional Mobility PT Goal 1 Goal / Goal Update improve balance and mobility skills, to increase activity level 1* Park balance score of 56/56 2* 2 minute walking test distance of 450' 3* 5 reps sit/stand without use of UE x 20 seconds 4* up/down 12 steps without hand railing, alternate step pattern 5* pt able to pick item up off floor, independent 6* pt able to perform bilateral UE 20# box lift from waist/floor height x 3 reps with good mechanics and balance 08/01/25 progressing 1* Park 46/56 2* 290 feet 3* 47 sec 4* with one hand railing, alternate step pattern/ without railing, single step pattern 5* supervision 6* poor mechanics, requires CGA for optimal safety Target Visit 10 Progress Partially Met OT Problem 1 OT Problem #1 Knowledge Deficit OT Goal 1 Goal / Goal Update 1. Patient to be independent with HEP. ---OT POC UPDATE 08/08/25--- 1. Partially met, patient continues to require cues for form Target Visit 18 OT Problem 2 OT Problem #2 Impaired Coordination OT Goal 1 Goal / Goal Update 1. Patient to increase functional fine motor coordination for ADLs as measured by being able to complete the 9-hole peg test with the right hand in 40 seconds or less. ---OT POC UPDATE 08/08/25--- 1. Progressing, but not met, continue goal Target Visit 18 OT Problem 3 OT Problem #3 Impaired Strength OT Goal 1 Goal / Goal Update Patient to increase gross strength of the (R) UE for ADLs as measured by: 1. Improving to 4+/5 MMT for the right shoulder 2. Improving to 5/5 MMT for the biceps. 3. Increase (R) Medical Director Occupational Health strength to 80 lbs. ---OT POC UPDATE 08/08/25--- 1. Not met - continue to fine tune serratus strength 2. Not met - continue strengthening 3. Not assessed this date Target Visit [address] Problem #[address] Goal 1 Goal / Goal Update The patient will participate in home programming to improve carry over/generalization of skills to the home environment. Target Visit 6 ST Goal 1 Goal / Goal Update Cognition: 1. The patient will recall short paragraph length information 2-3 details with 85% accuracy minimal cues 2. The patient will complete simple abstract reasoning with 85% accuracy minimal cues 3. The patient will sustain attention to a structured tsk for 5-7 minutes without redirect. 4. The patient will process complex yes and no questions with 85% accuracy minimal cues. Target Visit 10 ST Goal 1 Goal / Goal Update Verbal Expression: 1. The patient will formulate sentences for given words with 85% accuracy and minimal cues 2. The patient will complete divergent naming for common categories 8-10 items 85% accuracy minimal cues. Target Visit 10
--- NOTE | 2025-09-12 09:22 | OPREHPOC ---
Outpatient Therapy Plan of Care This is a Multidisciplinary Plan of Care that may contain components documented by all disciplines (PT, OT, and ST.) PT Problem 1 PT Problem #1 Knowledge Deficit PT Goal 1 Goal / Goal Update *independent with HEP Target Visit 10 Progress Met PT Problem 2 PT Problem #2 Impaired Strength PT Goal 1 Goal / Goal Update increase R LE strength to improve mobility and balance skills: 1* R ankle strength 4+/5 with good control of ankle circles in sitting 2* single leg standing x 10 seconds with good stability 3* pt report activity tolerance with standing/ walking/home activities of 4 hours 08/01/25 1* 4/5 2* R 7 sec/L 12 sec 3* 60 minutes Target Visit 10 Progress Partially Met PT Problem 3 PT Problem #3 Impaired Functional Mobility PT Goal 1 Goal / Goal Update improve balance and mobility skills, to increase activity level 1* Park balance score of 56/56 2* 2 minute walking test distance of 450' 3* 5 reps sit/stand without use of UE x 20 seconds 4* up/down 12 steps without hand railing, alternate step pattern 5* pt able to pick item up off floor, independent 6* pt able to perform bilateral UE 20# box lift from waist/floor height x 3 reps with good mechanics and balance 08/01/25 progressing 1* Park 46/56 2* 290 feet 3* 47 sec 4* with one hand railing, alternate step pattern/ without railing, single step pattern 5* supervision 6* poor mechanics, requires CGA for optimal safety Target Visit 10 Progress Partially Met OT Problem 1 OT Problem #1 Knowledge Deficit OT Goal 1 Goal / Goal Update 1. Patient to be independent with HEP. ---OT POC UPDATE 08/08/25--- 1. Partially met, patient continues to require cues for form Target Visit 18 OT Problem 2 OT Problem #2 Impaired Coordination OT Goal 1 Goal / Goal Update 1. Patient to increase functional fine motor coordination for ADLs as measured by being able to complete the 9-hole peg test with the right hand in 40 seconds or less. ---OT POC UPDATE 08/08/25--- 1. Progressing, but not met, continue goal Target Visit 18 OT Problem 3 OT Problem #3 Impaired Strength OT Goal 1 Goal / Goal Update Patient to increase gross strength of the (R) UE for ADLs as measured by: 1. Improving to 4+/5 MMT for the right shoulder 2. Improving to 5/5 MMT for the biceps. 3. Increase (R) Corporate Traffic Manager strength to 80 lbs. ---OT POC UPDATE 08/08/25--- 1. Not met - continue to fine tune serratus strength 2. Not met - continue strengthening 3. Not assessed this date Target Visit [address] Problem #[address] Goal 1 Goal / Goal Update The patient will participate in home programming to improve carry over/generalization of skills to the home environment. Update 09/12/25: Goal Met: Completing hoe programming for carry over of skills 100% compliance. Target Visit [address] Goal 2 Goal / Goal Update New Goal: 1. Continue home programming for carry over/ generalization of new goals and techniques provided. Target Visit [address] Problem #[address] Goal 1 Goal / Goal Update Cognition: 1. The patient will recall short paragraph length information 2-3 details with 85% accuracy minimal cues Updated 09/12/25: Goal Met 90% for short/simple paragraph length information. 2. The patient will complete simple abstract reasoning with 85% accuracy minimal cues Updated 09/13/25: Goal Partially Met: Completing simple abstract reasoning with 83-85% minimal cues . 3. The patient will sustain attention to a structured tsk for 5-7 minutes without redirect. Updated 09/13/25: Goal Met: Patient attending to task 10 minutes with no redirect. 4. The patient will process complex yes and no questions with 85% accuracy minimal cues. Updated 09/13/25: Goal Met: Processing complex yes and no questions with extra time and 85% accuracy . Target Visit [address] Goal 2 Goal / Goal Update New Goals: 1. The patient will recall moderate complex paragraph length information 2-3 details with 85% accuracy minimal cues 2. The patient will complete simple abstract reasoning with 85% accuracy minimal cues. 3. The patient will process complex yes and no questions with 90% accuracy no cues/increasing timeliness of response. Target Visit 10 ST Goal 1 Goal / Goal Update Verbal Expression: 1. The patient will formulate sentences for given words with 85% accuracy and minimal cues Update 09/12/25: Goal Met: The patient is formulating sentences for simple everyday items with 85% and minimal cues. 2. The patient will complete divergent naming for common categories 8-10 items 85% accuracy minimal cues. Update 09/12/25: Goal Met: The patient is stating 8-9 items for common categories with 85% and minimal cues. Target Visit [address] Goal 2 Goal / Goal Update New Goals: 1. The patient will formulate sentences for uncommon words (6-8 word length) with 85% and minimal cues. 2. The patient will complete divergent naming for abstract categories 5-7 items 85% and minimal cues .
--- NOTE | 2025-09-12 09:23 | STOPEVAL1 ---
Assessment and note entered by Kelsea Link, TOBACCO STEMMER MACHINE Evaluation Information Assessment Status Re-evaluation Reported Pain Level Pain Score 0: Self Report Assessment ST Clinical Summary Initial Evaluation: The patient is a 59 year old male referred for outpatient speech therapy services due to persistent cognitive and language deficits following a recent CVA. The patient reports his greatest concerns to be memory, concentration and coming up with words. The patient was administered the RIPA (Ross Information Processing Assessment) and portions of the [facility] Cognitive Evaluation. Results were as follows for the RIPA subtests given: Immediate Memory (22)73%, Temporal Orientation (30) 100%, Spatial Orientation (30) 100%, Problem Solving and Abstract Reasoning (28) 93%, Organization (23) 76%, Auditory Processing and Retention (23) 76% Results for the [facility] Language Evaluation subtests are as follows: Verbal Expression (Word Finding) Open Ended Questions 90%, Sentence Formation 80%, Divergent Naming 80% The patient demonstrates: Moderate deficits for sustained attention/concentration, memory/recall, thought organization/auditory processing, and word retrieval. Recommend speech services 2 week x 10 visits. Re-Evaluation 09/12/25: The patient was re-administered the RIPA (Ross Information Processing Assessment) and portions of the [facility] Cognitive Evaluation. Results were as follows for the RIPA subtests given: Immediate Memory (29)90%, Temporal Orientation (30) 100%, Spatial Orientation (30) 100%, Problem Solving and Abstract Reasoning (28) 90%, Organization (27) 86%, Auditory Processing and Retention (29) 90% Results for the [facility] Language Evaluation subtests are as follows: Verbal Expression (Word Finding) Open Ended Questions 100%, Sentence Formation 87%, Divergent Naming 85% The patient demonstrates: Mild deficits for concentration/attention, mild-moderate deficits for memory/recall, mild deficits for thought organization/auditory processing, and mild deficits for word retrieval/verbal expression. The patient has demonstrated notable improvement for all areas Immediate memory improved from 76% to 90 %, problem solving/reasoning from 73% to 85%, Auditory processing from 76% to 87%. Able to sustain attention for 10 minutes without redirect. Recommend continued outpatient speech services 2 week x 10 visits. Plan of Care Interventions Treatment of Language,Treatment for Cognitive Function ST Services Indicated Yes These treatments will address the objective and functional deficits as defined above. The patient will be advanced safely and appropriately in order for the patient to progress towards his/her prior level of function. Additional exercises will be introduced and as well as a comprehensive home exercise program upon discharge, if needed, ?to ensure carryover of functional gains achieved in the clinic. This treatment plan has been reviewed and agreement upon by the patient.
--- NOTE | 2025-09-12 14:09 | OTOPPROG ---
Assessment and note entered by Juvenal Guzman, ADAN/Trinh, CHT Evaluation Information Assessment Status Progress Diagnosis CVA with right sided weakness Onset 01/25/2025 Subjective Information Patient reports improvements with (R) UE function. He reports he feels less shaky and has been able to write better. He reports he continues to have issues with tone and feelings of tightness on the entire right side of his body. He reports he has been able to get back to using some of his tools (drills and such). He reports the hand gets in the way and feels a bit uncoordinated at times. He reports good compliance with his HEP. He states he continues to put his wallet in his left pocket due to having difficulty getting it out with the right hand on his right side. He also continues to slip on his shoes instead of tying them. Assessment OT Clinical Summary Patient referred to OT with dx of CVA. Throughout the course of therapy this month he has made progress in the right shoulder with improved scapulothoracic mechanics and strength. Improvements with gross distal strength and deep well contractor strength. He continues to experience a winged scapula with shoulder flexion at ~30-90 degrees. He continues to have hypertonicity and incoordination that affects his function with gross and fine motor control during ADLs. Continued skilled OT indicated to maximize functional use of his dominant UE via therapeutic exercise, neuro re-education, and HEP instruction and progression. Plan of Care Interventions Therapeutic Exercise,Neuro Re-education, Therapeutic Activities OT Services Indicated Yes Treatment Frequency and 2x/week for 10 visits Duration These treatments will address the objective and functional deficits as defined above. The patient will be advanced safely and appropriately in order for the patient to progress towards his/her prior level of function. Additional exercises will be introduced and as well as a comprehensive home exercise program upon discharge, if needed, ?to ensure carryover of functional gains achieved in the clinic. This treatment plan has been reviewed and agreement upon by the patient.
--- NOTE | 2025-09-12 14:10 | OPREHPOC ---
Outpatient Therapy Plan of Care This is a Multidisciplinary Plan of Care that may contain components documented by all disciplines (PT, OT, and ST.) PT Problem 1 PT Problem #1 Knowledge Deficit PT Goal 1 Goal / Goal Update *independent with HEP Target Visit 10 Progress Met PT Problem 2 PT Problem #2 Impaired Strength PT Goal 1 Goal / Goal Update increase R LE strength to improve mobility and balance skills: 1* R ankle strength 4+/5 with good control of ankle circles in sitting 2* single leg standing x 10 seconds with good stability 3* pt report activity tolerance with standing/ walking/home activities of 4 hours 08/01/25 1* 4/5 2* R 7 sec/L 12 sec 3* 60 minutes Target Visit 10 Progress Partially Met PT Problem 3 PT Problem #3 Impaired Functional Mobility PT Goal 1 Goal / Goal Update improve balance and mobility skills, to increase activity level 1* Park balance score of 56/56 2* 2 minute walking test distance of 450' 3* 5 reps sit/stand without use of UE x 20 seconds 4* up/down 12 steps without hand railing, alternate step pattern 5* pt able to pick item up off floor, independent 6* pt able to perform bilateral UE 20# box lift from waist/floor height x 3 reps with good mechanics and balance 08/01/25 progressing 1* Park 46/56 2* 290 feet 3* 47 sec 4* with one hand railing, alternate step pattern/ without railing, single step pattern 5* supervision 6* poor mechanics, requires CGA for optimal safety Target Visit 10 Progress Partially Met OT Problem 1 OT Problem #1 Knowledge Deficit OT Goal 1 Goal / Goal Update 1. Patient to be independent with HEP. ---OT POC UPDATE 08/08/25--- 1. Partially met, patient continues to require cues for form ---OT POC UPDATE 09/12/25--- 1. Met, continue as HEP is progressed Target Visit 25 OT Problem 2 OT Problem #2 Impaired Coordination OT Goal 1 Goal / Goal Update 1. Patient to increase functional fine motor coordination for ADLs as measured by being able to complete the 9-hole peg test with the right hand in 40 seconds or less. ---OT POC UPDATE 08/08/25--- 1. Progressing, but not met, continue goal ---OT POC UPDATE 09/12/25--- 1. Progressing, but not met, continue goal Target Visit 25 OT Problem 3 OT Problem #3 Impaired Strength OT Goal 1 Goal / Goal Update Patient to increase gross strength of the (R) UE for ADLs as measured by: 1. Improving to 4+/5 MMT for the right shoulder 2. Improving to 5/5 MMT for the biceps. 3. Increase (R) Composition Professor strength to 80 lbs. ---OT POC UPDATE 08/08/25--- 1. Not met - continue to fine tune serratus strength 2. Not met - continue strengthening 3. Not assessed this date ---OT POC UPDATE 09/12/25--- 1. Not met 2. Met 3. Met Target Visit [address] Problem #[address] Goal 1 Goal / Goal Update The patient will participate in home programming to improve carry over/generalization of skills to the home environment. Update 09/12/25: Goal Met: Completing hoe programming for carry over of skills 100% compliance. Target Visit [address] Goal 2 Goal / Goal Update New Goal: 1. Continue home programming for carry over/ generalization of new goals and techniques provided. Target Visit [address] Problem #[address] Goal 1 Goal / Goal Update Cognition: 1. The patient will recall short paragraph length information 2-3 details with 85% accuracy minimal cues Updated 09/12/25: Goal Met 90% for short/simple paragraph length information. 2. The patient will complete simple abstract reasoning with 85% accuracy minimal cues Updated 09/13/25: Goal Partially Met: Completing simple abstract reasoning with 83-85% minimal cues . 3. The patient will sustain attention to a structured tsk for 5-7 minutes without redirect. Updated 09/13/25: Goal Met: Patient attending to task 10 minutes with no redirect. 4. The patient will process complex yes and no questions with 85% accuracy minimal cues. Updated 09/13/25: Goal Met: Processing complex yes and no questions with extra time and 85% accuracy . Target Visit [address] Goal 2 Goal / Goal Update New Goals: 1. The patient will recall moderate complex paragraph length information 2-3 details with 85% accuracy minimal cues 2. The patient will complete simple abstract reasoning with 85% accuracy minimal cues. 3. The patient will process complex yes and no questions with 90% accuracy no cues/increasing timeliness of response. Target Visit 10 ST Goal 1 Goal / Goal Update Verbal Expression: 1. The patient will formulate sentences for given words with 85% accuracy and minimal cues Update 09/12/25: Goal Met: The patient is formulating sentences for simple everyday items with 85% and minimal cues. 2. The patient will complete divergent naming for common categories 8-10 items 85% accuracy minimal cues. Update 09/12/25: Goal Met: The patient is stating 8-9 items for common categories with 85% and minimal cues. Target Visit [address] Goal 2 Goal / Goal Update New Goals: 1. The patient will formulate sentences for uncommon words (6-8 word length) with 85% and minimal cues. 2. The patient will complete divergent naming for abstract categories 5-7 items 85% and minimal cues .
--- NOTE | 2025-09-12 16:56 | PTOPPROG ---
Assessment and note entered by Taz Murphy, PT Evaluation Information Assessment Status Progress ICD-10 Condition Codes (PT) Difficulty Walking R26.2,Abnormalities of gait and mobility R26.9,Weakness R53.1 Other ICD-10 Condition Codes ( CVA, R weakness PT) Onset Jan 25, 2025 Subjective Information Reports that overall he is still working on his endurance. Feels he was walking a little more in cardiac rehab but is unsure. Would like to continue with therapy as he feels he is not quite hitting his balance and functionality that he feels he needs at this time. Assessment PT Clinical Summary Patient has seen improvement in ambulation distance. Still showing some R sided weakness and considerable drop-off in ambulation endurance with Tinetti scores below the projected threshold. Will benefit from continuation of therapy to address these benchmarks. Plan of Care Interventions Gait Training,Neuro Re-education,Patient/Caregiver Education,Therapeutic Activities,Therapeutic Exercise PT Services Indicated Yes Treatment Frequency and 2x/week for 10 visits Duration These treatments will address the objective and functional deficits as defined above. The patient will be advanced safely and appropriately in order for the patient to progress towards his/her prior level of function. Additional exercises will be introduced and as well as a comprehensive home exercise program upon discharge, if needed, ?to ensure carryover of functional gains achieved in the clinic. This treatment plan has been reviewed and agreement upon by the patient.
--- NOTE | 2025-09-19 14:55 | STOPDC ---
Assessment and note entered by Kelsea Link, SUPERVISOR FUSING ROOM Evaluation Information Assessment Status Discharge - Pt Not Present Assessment ST Clinical Summary Initial Evaluation: The patient is a 59 year old male referred for outpatient speech therapy services due to persistent cognitive and language deficits following a recent CVA. The patient reports his greatest concerns to be memory, concentration and coming up with words. The patient was administered the RIPA (Ross Information Processing Assessment) and portions of the [facility] Cognitive Evaluation. Results were as follows for the RIPA subtests given: Immediate Memory (22)73%, Temporal Orientation (30) 100%, Spatial Orientation (30) 100%, Problem Solving and Abstract Reasoning (28) 93%, Organization (23) 76%, Auditory Processing and Retention (23) 76% Results for the [facility] Language Evaluation subtests are as follows: Verbal Expression (Word Finding) Open Ended Questions 90%, Sentence Formation 80%, Divergent Naming 80% The patient demonstrates: Moderate deficits for sustained attention/concentration, memory/recall, thought organization/auditory processing, and word retrieval. Recommend speech services 2 week x 10 visits. Re-Evaluation 09/12/25 The patient was re-administered the RIPA (Ross Information Processing Assessment) and portions of the [facility] Cognitive Evaluation. Results were as follows for the RIPA subtests given: Immediate Memory (29)90%, Temporal Orientation (30) 100%, Spatial Orientation (30) 100%, Problem Solving and Abstract Reasoning (28) 90%, Organization (27) 86%, Auditory Processing and Retention (29) 90% Results for the [facility] Language Evaluation subtests are as follows: Verbal Expression (Word Finding) Open Ended Questions 100%, Sentence Formation 87%, Divergent Naming 85% The patient demonstrates: Mild deficits for concentration/attention, mild-moderate deficits for memory/recall, mild deficits for thought organization/auditory processing, and mild deficits for word retrieval/verbal expression. The patient has demonstrated notable improvement for all areas Immediate memory improved from 76% to 90 %, problem solving/reasoning from 73% to 85%, Auditory processing from 76% to 87%. Able to sustain attention for 10 minutes without redirect. Recommend continued outpatient speech services 2 week x 10 visits. Discharge: 09/19/25. The patient has seen his PCP and has decided to discharge from services at this time. Will receive a new order should services be indicated in the future. Upon Discharge 09/19/25: The patient is achieving improved recall of lengthy information 3 details with extra time to process and improved sustained attention. Still demonstrating difficulty with abstract concepts with 75% accuracy overall. Verbal expression improved for everyday naming but requires extra time for sentence formulation when expressing abstract or complex ideas. Improved auditory processing in regard to time required to process auditory information and respond. The patient was previously given a HEP and recommend he continue as able. Thank you for the consult. Plan of Care ST Services Indicated No
--- NOTE | 2025-09-25 08:06 | OTOPDC ---
Assessment and note entered by Juvenal Guzman, OTR/L, CHT OT D/C Notification Diagnosis CVA with right sided weakness Onset 01/25/2025 OT Clinical Summary Pt recently re-evaluated by OT 09/12/25. Please refer to that progress note for most recent patient summary. After completing the re-eval it was recommended that he continue therapy. Patient called to report he was going to work on cardiac rehab and requests to be discharged from OT at this time. D/C OT per patient request. Therapy goals were not met.
--- NOTE | 2025-09-25 08:31 | PTOPDC ---
Assessment and note entered by Taz Murphy, PT Evaluation Information Assessment Status Discharge - Pt Not Present ICD-10 Condition Codes (PT) Difficulty Walking R26.2,Abnormalities of gait and mobility R26.9,Weakness R53.1 Other ICD-10 Condition Codes ( CVA, R weakness PT) Onset Jan 25, 2025 Subjective Information Patient contacted clinic stating that he wished to be discharged from skilled therapy at this time. Will be starting up with cardiac rehab. Assessment PT Clinical Summary Patient discharging from skilled PT at this time. Will be initiating cardiac rehab and discharging per patient request. Please see last progress note for discharge status. Plan of Care PT Services Indicated Yes
== END 2025-09-24 23:59 | disposition home or self-care (01) ==
LOC: ANHGOSHPT 14:30
PROVIDERS: PCP Family Medicine Adolescent Medicine; Visit Provider Family Medicine Adolescent Medicine
DX: Z95.1 Presence of aortocoronary bypass graft (principal); R26.2 Difficulty in walking, not elsewhere classified; R26.9 Unspecified abnormalities of gait and mobility; R53.1 Weakness
CPT/HCPCS: 92507; 92523; 97110; 97112; 97140; 97161; 97165; 97530; 97750